=== PATIENT | male | born 1985 ===

== ENCOUNTER 2020-12-15 11:04 | Outpatient (REF) | payer MEDICAID, SELFPAY ==
[2020-12-15 12:40] LABS: MANUAL DIFF FLAG NO
[2020-12-15 12:44] LABS: Hematocrit 45.3 % (42-52); Hemoglobin 16.6 g/dl (14.0-18.0); Imm Gran Abs Auto 0.01 X10*3/uL (0.00-0.03); Imm Gran Pct Auto 0.3 % (0.0-0.4); Lymphocytes Absolute Auto 1.9 X10*3/uL (1.2-4.9); Lymphocytes Percent Auto 48.3 % (20-40); Mean Corpuscular HGB Conc 36.6 g/dl (31.0-36.0); Mean Corpuscular Volume 95.6 fL (80-98); Mean Platelet Volume 9.9 fL (9.4-12.4); Monocytes Absolute Auto 0.4 X10*3/uL (0.1-1.2); Monocytes Percent Auto 9.5 % (2-11); Neutrophils Absolute Auto 1.6 X10*3/uL (2.0-8.3); Neutrophils Percent Auto 39.9 % (45-73); Platelet Count 163 X10*3/uL (160-400); Red Blood Count 4.74 X10*6/uL (4.60-5.80); Red Cell Distribution Width 12.1 % (11.0-16.0); White Blood Count 3.9 X10*3/uL (4.8-10.8)
[2020-12-15 12:48] LABS: Glucose Urine UA NEG (NEG); Leukocyte Esterase Urine NEG (NEG); Nitrite Urine NEG (NEG); Specific Gravity - Urine 1.025 (1.005-1.025); UACC Culture Trigger NO; Urine Blood NEG (NEG); Urine Ketones 5 MG/DL (NEG); Urine Protein 1+ MG/DL (NEG-TRACE)
[2020-12-15 12:49] LABS: Appearance Urine CLOUDY; Color Urine YELLOW
[2020-12-15 12:52] LABS: Prothrombin Time 11.3 SEC (9.9-13.0)
[2020-12-15 13:07] LABS: Bacteria Urine TRACE /LPF; Calcium Oxalate Crystals Urine 2+ /LPF; Mucus Urine 2+ /LPF; RBC Urine 0-2 /HPF (0); Squamous Epithelial Cell Urine TRACE /LPF; WBC Urine 0-2 /HPF (0-4)
[2020-12-15 13:53] LABS: Alanine Aminotransferase 725 U/L (0-40); Albumin Level 3.9 g/dL (3.5-5.0); Alkaline Phosphatase 282 U/L (39-117); Anion Gap 20 (12-20); Aspartate Amino Transferase 765 U/L (5-37); Blood Urea Nitrogen 15 mg/dL (9-16); Calcium 8.5 mg/dL (8.4-10.2); Carbon Dioxide 22 mmol/L (22-29); Chloride 98 mmol/L (96-108); Estimated Glomerular Filt Rate > 60; Glucose Random 122 mg/dL (60-115); Iron 172 mcg/dL (45-160); Sodium 136 mmol/L (135-145); Total Protein 6.8 g/dL (6.5-8.0)
[2020-12-15 14:01] LABS: Amylase 31 U/L (28-100); Percent Iron Saturation 86 % (15-50); Total Iron Binding Capacity 201 mcg/dL (228-428); Unsaturated Iron Binding 29 ug/dL
[2020-12-15 14:26] LABS: Estimated Average Glucose 103 mg/dL; Hemoglobin A1c % 5.2 %
[2020-12-15 15:09] LABS: Ferritin 4362 ng/mL (20-250)
[2020-12-16 08:44] LABS: HBc Num1 0.06 S/CO (0.00-0.79); HBsAGNum1 0.25 S/CO (0.00-0.99); Hepatitis B Core Antibody Nonreactive (Nonreactive); Hepatitis B Surface Antigen Negative (Negative); ~HepC Num1 0.08 S/CO (0.00-0.79); ~Hepatitis C Antibody Nonreactive (Nonreactive)
[2020-12-16 08:52] LABS: ~Hepatitis B Surface Antibody REACTIVE (Nonreactive)
[2020-12-17 09:49] LABS: Hepatitis A Antibody IgM 0.12 Index (0-0.79); ~Hepatitis A Antibody IgM Nonreactive (Nonreactive)
== END 2020-12-15 11:05 | disposition home or self-care (01) ==
LOC: HO.MANLDS 11:04
PROVIDERS: PCP Internal Medicine; Visit Provider Internal Medicine
DX: K92.1 Melena (principal); R30.0 Dysuria
CPT/HCPCS: 36415; 80053; 81001; 82150; 82728; 83036; 83540; 85025; 85610; 86704; 86706; 86709; 86803; 87086; 87340

== ENCOUNTER 2022-11-10 05:21 | Inpatient (IN) | payer MEDICAID, SELFPAY ==
[2022-11-10] VITALS (9 sets, daily range): BP systolic 101–144; BP diastolic 58–86; PULSE 62–102; RESP 11–20; TEMP 36.1–37.3; O2SAT 93–98; BMI 28.5; BMI 29.6; BMI 28.7
--- NOTE | ~2022-11-10 | CT_ITS ---
EXAMINATION: CT ABDOMEN AND PELVIS WITH CONTRAST CLINICAL INFORMATION: Diffuse abdominal pain and tenderness. Vomiting. No bowel movement for one week. COMPARISON: None available. TECHNIQUE: Multidetector volumetric images were obtained from the superior aspect of the liver through the pubic symphysis following administration 85 mL of Omnipaque 350 intravenous contrast. Sagittal and coronal reformatted images were obtained on the technologist's workstation. Oral contrast: No This CT examination was performed using dose optimization techniques as appropriate, variously including the following: *Automated exposure control *Adjustment of mA and/or kV according to patient size (this includes techniques or standardized protocols for targeted exams where dose is matched to indication/reason for exam; i.e. extremities or head) *Use of iterative reconstruction technique DLP: 662 mGy-cm FINDINGS: LUNG BASES: Elevated right hemidiaphragm. The lung bases are otherwise clear. LIVER, GALLBLADDER, AND BILIARY TREE: The liver is enlarged. Normal contour with diffuse decreased attenuation. No biliary ductal dilatation or focal lesion. The gallbladder is unremarkable with no evidence of radiopaque gallstones, gallbladder wall thickening, or obvious pericholecystic inflammatory changes. PANCREAS: Mild inflammation in the region of the pancreatic head. The pancreatic parenchyma is homogenous. No ductal dilatation. SPLEEN: Unremarkable. ADRENAL GLANDS: Unremarkable. KIDNEYS AND URETERS: The kidneys are normal in size, shape, and attenuation. No hydronephrosis, hydroureter, or calculi seen. No perinephric stranding. BLADDER: Unremarkable. GASTROINTESTINAL TRACT: The stomach is unremarkable. Normal caliber small bowel. There is no obstruction. Fatty filtration diffusely throughout the colonic wall suggestive of chronic inflammatory process. No acute pericolonic inflammation. Normal appendix. ABDOMINAL WALL: No significant hernia is appreciated. LYMPH NODES: Normal. VASCULAR: Unremarkable. PELVIC VISCERA: The prostate and seminal vesicles are unremarkable. OSSEOUS STRUCTURES: Unremarkable. CT/CT abdomen pelvis w IV con IMPRESSION: 1. Mild inflammation in the region of the pancreatic head. Correlate for pancreatitis. 2. Hepatomegaly with hepatic steatosis. Fleischner guidelines were followed.
[2022-11-10] MEDS: 0.9 % Sodium Chloride 1,000 ML 999 ML IVCONT ×2 (06:04→07:47)
[2022-11-10 06:07] LABS: MANUAL DIFF FLAG NO
--- NOTE | 2022-11-10 06:09 | PC.NURSE ---
Pt A&Ox4, reports 8/10 sharp constant all over ABD pain x over 1 week with worsening in symptoms x 2 days with N/V. Pt states feeling bloating/gas and unable to keep PO fluids in. Last alcohol drink was this am at 0000. ABD tender to touch x 4 quadrants, + bowel sounds x 4 quadrants. Lab work obtained and sent to lab, IV fluid given as documented. CIWA score obtained/provider notified.
[2022-11-10 06:22] LABS: Ethanol 300 mg/dL
[2022-11-10 06:28] LABS: Alanine Aminotransferase 312 U/L (0-40); Albumin Level 4.7 g/dL (3.5-5.0); Alkaline Phosphatase 155 U/L (39-117); Anion Gap 32 (12-20); Aspartate Amino Transferase 493 U/L (5-37); Bilirubin Direct 1.8 mg/dL (0.0-0.5); Bilirubin Total 2.9 mg/dL (0.0-1.0); Blood Urea Nitrogen 7 mg/dL (9-16); Calcium 9.8 mg/dL (8.4-10.2); Carbon Dioxide 19 mmol/L (22-29); Chloride 90 mmol/L (96-108); Creatinine Clr Calc Pharmacy 166.6; Estimated Glomerular Filt Rate > 60; Glucose Random 141 mg/dL (60-115); Lipase 131 U/L (8-78); Magnesium 1.8 mg/dL (1.6-2.6); Potassium 3.1 mmol/L (3.3-5.1); Sodium 138 mmol/L (135-145); Total Protein 7.8 g/dL (6.5-8.0)
[2022-11-10 06:32] LABS: Basophils Percent Auto 0.5 % (0-2); Eosinophils Percent Auto 0.2 % (0-4); Hematocrit 44.8 % (42.0-52.0); Imm Gran Abs Auto 0.01 X10*3/uL (0.00-0.03); Imm Gran Pct Auto 0.2 % (0.0-0.4); Lymphocytes Absolute Auto 1.1 X10*3/uL (1.2-4.9); Lymphocytes Percent Auto 25.9 % (20-40); Mean Corpuscular HGB Conc 35.7 g/dl (31.0-36.0); Mean Corpuscular Hemoglobin 31.1 pg (27.0-33.0); Monocytes Absolute Auto 0.4 X10*3/uL (0.1-1.2); Monocytes Percent Auto 10.6 % (2-11); Neutrophils Absolute Auto 2.5 x10*3/uL (2.0-8.3); Neutrophils Percent Auto 62.6 % (45-73); Red Blood Count 5.15 X10*6/uL (4.60-5.80); White Blood Count 4.1 X10*3/uL (4.8-10.8)
--- NOTE | 2022-11-10 06:33 | ED.ABDPAIN ---
HPI - Abdominal Pain General Chief Complaint: Abdominal Pain Stated Complaint: abdominal pain Time Seen by Provider: 11/10/22 06:31 Source: patient and EMS Mode of arrival: EMS Limitations: no limitations History of Present Illness HPI narrative: 37 yo male with history of alcohol abuse and dependence, history of recent alcoholic pancreatitis at [facility], history of HTN who presents to the ER for evaluation of severe diffuse abdominal pain, nausea, vomiting and inability to keep anything down for the last 1 week. He states when he was at [facility] for pancreatitis, his pain was mostly on the left side and it was associated with significant diarrhea. This last week he has had diffuse abdominal pain and has not had any bowel movements. He feels like a bowling ball is in my stomach. He admits to relapsing from alcohol about 1 month ago after being sober 21 months. MD elicited complaint: abdominal pain Pertinent past history: other (pancreatitis) Onset (ago): week(s) (1) Pain Consistency: constant Location: diffuse Severity: severe Pain scale (0-10): 10 Quality: stabbing Radiation: none Migration to: no migration Exacerbating factors: eating Relieving factors: nothing Context: history of similar episodes and other (alcohol) Associated symptoms: nausea and vomiting Related Data Home Medications Medication Instructions Recorded Confirmed buspirone 5 mg tablet 5 mg PO BID 11/10/22 11/10/22 clonidine HCl 0.1 mg tablet 0.1 mg PO BEDTIME PRN Insomnia 11/10/22 11/10/22 sertraline 100 mg tablet 200 mg PO DAILY 11/10/22 11/10/22 Allergies Allergy/AdvReac Type Severity Reaction Status Date / Time fluoxetine [From PROZAC] Allergy Unknown UNKNOWN Verified 11/10/22 06:03 Penicillins [PENICILLINS] Allergy Unknown UNKNOWN Verified 11/10/22 06:03 Review of Systems Review of Systems Yes all other systems are reviewed and are negative [facility] Social History Social History Alcohol intake: current Alcohol intake frequency: 3 or more drinks per day Alcohol type: hard liquor Smoked in Last 30 Days: Yes Use of substances other than those prescribed or required for medical reasons: No Advance Directives: Yes Advance Directives Information Provided: Yes Advance Directives on File: No Physical Exam ED Vital Signs: Vital Signs - 24 hr 11/10/22 05:27 11/10/22 07:47 11/10/22 08:12 Temperature 98.4 F 98.1 F Pulse Rate 90 91 82 Respiratory Rate 19 20 11 L Blood Pressure 135/86 124/76 120/77 Pulse Oximetry 96 96 95 Oxygen Delivery Method Room Air Room Air Room Air BMI result Body Mass Index 29.6 Appearance: Alert. Oriented X3. Restless, slight tremor Head: normocephalic, atraumatic. Eyes: Pupils equal, round and reactive to light. ENT: Pharynx normal. No tonsillar swelling or exudate. Neck: Normal inspection. Neck supple. CVS: Normal heart rate and rhythm. Pulses normal. Respiratory: No respiratory distress. Breath sounds normal. Abdomen: Firm, diffusely tender with guarding throughout, normal ative +BS x4 Skin: Skin warm and dry. Normal skin color. Normal skin turgor. No rashes. Extremities: No lower extremity edema. No joint swelling. Neuro/psych: Oriented X 3. No motor deficit. No sensory deficit. CN II-XII intact. Normal speech and cognition. Medical Decision Making Medical Decision Making [facility] Narrative: 37 yo male with history of alcohol abuse and dependence, history of recent alcoholic pancreatitis at [facility], history of HTN who presents to the ER for evaluation of severe diffuse abdominal pain, nausea, vomiting and inability to keep anything down for the last 1 week. Labs c/w acute alcoholic hepatitis vs alcoholic pancreatitis vs CBD stone?. He has high anion gap metabolic acidosis, AG 32. Most likely alcoholic ketoacidosis/starvation ketosis. Lactic acid likely from starvation and NOT sepsis. no evidence of acute infection at this time. CT scan w/ hepatomegaly and evidence of pancreatitis. awaiting [facility] records Given 2L IVF, IV dilaudid for severe pain. CIWA 7 with ETOH 300, high risk for severe withdrawal. Will plan for admission for further management. Differential Diagnosis Differential Diagnoses: The differential diagnosis associated with the presentation includes acute abdomen given severe tenderness, acute alcoholic pancreatitis, choledocholithasis, SBO, alcoholic hepatitis, alcoholic ketoacidosis, lactic acidosis, alcohol intoxication Admission/Observation Consideration of admission/observation: Escalation of care including admission/observation considered 37 yo male w/ recurrent pancreatitis, unable to tolerate PO with severe abd pain Consult Healthcare Provider Management of the patient was discussed with: [employer] TT Dr. Dominguez for admission Lab Data [facility] Lab Attestation statement: I reviewed the patient's lab results. thrombocytopenia, hypokalemia, elevated LFTs, anion gap metabolic acidosis 11/10/22 06:03 11/10/22 06:03 Labs: Lab Results 11/10/22 11/10/22 11/10/22 Range/Units 06:03 06:03 06:03 WBC 4.1 L (4.8-10.8) X10*3/uL RBC 5.15 (4.60-5.80) X10*6/uL Hgb 16.0 (14.0-18.0) g/dl Hct 44.8 (42.0-52.0) % MCV 87.0 (80.0-98.0) fL MCH 31.1 (27.0-33.0) pg MCHC 35.7 (31.0-36.0) g/dl RDW 16.0 (11.0-16.0) % Plt Count 69 L (160-400) X10*3/uL MPV 9.2 L (9.4-12.4) fL Immature Gran % (Auto) 0.2 (0.0-0.4) % Neut % (Auto) 62.6 (45-73) % Lymph % (Auto) 25.9 (20-40) % [place] % (Auto) 10.6 (2-11) % Eos % (Auto) 0.2 (0-4) % Baso % (Auto) 0.5 (0-2) % Lymph # (Auto) 1.1 L (1.2-4.9) X10*3/uL [place] # (Auto) 0.4 (0.1-1.2) X10*3/uL Eos # (Auto) 0.0 (0.0-0.4) X10*3/uL Baso # (Auto) 0.0 (0.0-0.2) X10*3/uL Abs Immat Gran (auto) 0.01 (0.00-0.03) X10*3/uL Absolute Neuts (auto) 2.5 (2.0-8.3) x10*3/uL Absolute Nucleated RBC 0.000 (0.0-0.012) X10*3/uL Nucleated RBC % (auto) 0.0 (0.0-0.2) /100WBC PT (10.0-13.1) SEC INR (0.9-1.1) APTT (26.0-36.4) SEC Sodium 138 (135-145) mmol/L Potassium 3.1 L D (3.3-5.1) mmol/L Chloride 90 L (96-108) mmol/L Carbon Dioxide 19 L (22-29) mmol/L Anion Gap 32 H (12-20) BUN 7 L (9-16) mg/dL Creatinine 0.61 (0.5-1.4) mg/dL Estim Creat Clear Calc 166.6 Estimated GFR > 60 Random Glucose 141 H (60-115) mg/dL Lactic Acid (0.5-2.0) mmol/L Calcium 9.8 D (8.4-10.2) mg/dL Magnesium 1.8 (1.6-2.6) mg/dL Total Bilirubin 2.9 H (0.0-1.0) mg/dL Direct Bilirubin 1.8 H (0.0-0.5) mg/dL AST 493 H (5-37) U/L ALT 312 H (0-40) U/L Alkaline Phosphatase 155 H (39-117) U/L Lactate Dehydrogenase 535 H (118-273) U/L Total Protein 7.8 (6.5-8.0) g/dL Albumin 4.7 (3.5-5.0) g/dL Lipase 131 H (8-78) U/L Urine Color Urine Appearance Urine pH (5.0-9.0) Ur Specific [place] (1.005-1.025) Urine Protein (Neg-Trace) mg/dL Urine Glucose (UA) (Negative) mg/dL Urine Ketones (Negative) mg/dL Urine Blood (Negative) Urine Nitrite (Negative) Ur Leukocyte Esterase (Negative) Urine RBC (0-2) /HPF Urine WBC (0-5) /HPF Ur Squamous Epith Cells (0-2) /HPF Urine Bacteria (None Seen) Hyaline Casts (0-2) /LPF Ethyl Alcohol 300 H* mg/dL 11/10/22 11/10/22 11/10/22 Range/Units 07:44 07:44 08:12 WBC (4.8-10.8) X10*3/uL RBC (4.60-5.80) X10*6/uL Hgb (14.0-18.0) g/dl Hct (42.0-52.0) % MCV (80.0-98.0) fL MCH (27.0-33.0) pg MCHC (31.0-36.0) g/dl RDW (11.0-16.0) % Plt Count (160-400) X10*3/uL MPV (9.4-12.4) fL Immature Gran % (Auto) (0.0-0.4) % Neut % (Auto) (45-73) % Lymph % (Auto) (20-40) % [place] % (Auto) (2-11) % Eos % (Auto) (0-4) % Baso % (Auto) (0-2) % Lymph # (Auto) (1.2-4.9) X10*3/uL [place] # (Auto) (0.1-1.2) X10*3/uL Eos # (Auto) (0.0-0.4) X10*3/uL Baso # (Auto) (0.0-0.2) X10*3/uL Abs Immat Gran (auto) (0.00-0.03) X10*3/uL Absolute Neuts (auto) (2.0-8.3) x10*3/uL Absolute Nucleated RBC (0.0-0.012) X10*3/uL Nucleated RBC % (auto) (0.0-0.2) /100WBC PT 10.7 (10.0-13.1) SEC INR 0.9 (0.9-1.1) APTT 28.6 (26.0-36.4) SEC Sodium (135-145) mmol/L Potassium (3.3-5.1) mmol/L Chloride (96-108) mmol/L Carbon Dioxide (22-29) mmol/L Anion Gap (12-20) BUN (9-16) mg/dL Creatinine (0.5-1.4) mg/dL Estim Creat Clear Calc Estimated GFR Random Glucose (60-115) mg/dL Lactic Acid 2.4 H* (0.5-2.0) mmol/L Calcium (8.4-10.2) mg/dL Magnesium (1.6-2.6) mg/dL Total Bilirubin (0.0-1.0) mg/dL Direct Bilirubin (0.0-0.5) mg/dL AST (5-37) U/L ALT (0-40) U/L Alkaline Phosphatase (39-117) U/L Lactate Dehydrogenase (118-273) U/L Total Protein (6.5-8.0) g/dL Albumin (3.5-5.0) g/dL Lipase (8-78) U/L Urine Color Dark Yellow Urine Appearance Clear Urine pH 6.0 (5.0-9.0) Ur Specific [place] 1.020 (1.005-1.025) Urine Protein 300 (3+) H (Neg-Trace) mg/dL Urine Glucose (UA) Negative (Negative) mg/dL Urine Ketones 80 (Negative) mg/dL Urine Blood Small (1+) H (Negative) Urine Nitrite Negative (Negative) Ur Leukocyte Esterase Negative (Negative) Urine RBC 6-10 H (0-2) /HPF Urine WBC 0-5 (0-5) /HPF Ur Squamous Epith Cells 0-2 (0-2) /HPF Urine Bacteria None Seen (None Seen) Hyaline Casts 0-2 (0-2) /LPF Ethyl Alcohol mg/dL Independent Interpretation I performed an independent interpretation of an: CT Scan Interpretation: hepatomegaly, enlarged gallbladder without stones, nonobstructive bowel pattern, pancreas slightly full, agree w/ radiology read Radiology Impression Discussion of test interpretation with radiology: I have reviewed the radiologist's reading. Radiologist Impression: ?CT/CT abdomen pelvis w IV con IMPRESSION: 1.? Mild inflammation in the region of the pancreatic head. Correlate for pancreatitis. 2.? Hepatomegaly with hepatic steatosis Independent Historian Clinical information obtained from an independent historian. History obtained from or confirmed by: EMS External Record Review External record reviewed: Outpatient record, Prior outpatient labs and Prior outpatient radiology Prescription Management I considered prescription management with: Pain Medication and Antibiotic considered abx for acalcylous cholecystitis w/ enlarged GB on CT however read as normal Chronic Conditions Patient?s care impacted by: Other (alcohol dependence) Social Determinants Patient?s care significantly limited by Social Determinants of Health including: Alcoholism and drug addiction in family and Other Social Determinant of Health Medications Administered Discontinued Medications Generic Name Dose Route Start Last Admin Trade Name Freq PRN Reason Stop Dose Admin Hydromorphone HCl 0.5 mg 11/10/22 06:41 11/10/22 07:55 Hydromorphone Hcl 0.5 Mg/0.5 Ml Syringe IVPUSH 11/10/22 06:42 0.5 mg ONCE ONE Administration Protocol Sodium Chloride 1,000 mls @ 999 mls/hr 11/10/22 05:57 11/10/22 08:00 Ns IVCONT 11/10/22 06:57 Infused .Q1H1M ONE Infusion Sodium Chloride 1,000 mls @ 999 mls/hr 11/10/22 06:45 11/10/22 09:02 Ns IVCONT 11/10/22 07:45 Infused .Q1H1M [place] Infusion Potassium Chloride 10 meq in 100 mls @ 100 mls/hr 11/10/22 06:45 11/10/22 09:01 Potassium Chloride/H20 IV 11/10/22 08:44 100 mls/hr Q1H [place] Administration Iohexol 85 ml 11/10/22 07:35 11/10/22 07:36 Iohexol 350 Mg/Ml 100 Ml Infus..Btl IV 11/10/22 07:36 85 ml ONCE ONE Administration Ondansetron HCl 4 mg 11/10/22 06:41 11/10/22 07:55 Ondansetron Hcl 4 Mg/2 Ml Vial IVPUSH 11/10/22 06:42 4 mg ONCE ONE Administration Critical Care Time Critical Care Time Critical Care Time: Yes Total Critical Care Time: 36 Attestation: I have personally provided critical care time exclusive of time spent on separately billable procedures. Time includes review of lab data, radiology results, discussion with consultants, and monitoring for potential decompensation. Intervention performed as documented. Discharge Plan Discharge Clinical Impression: Acute alcoholic pancreatitis, Acute alcoholic hepatitis, Acute hypokalemia, Alcoholic ketoacidosis Patient Disposition: Admitted As Inpatient
[2022-11-10 06:41] LABS: Platelet Count 69 X10*3/uL (160-400)
[2022-11-10 06:44] LABS: Mean Platelet Volume 9.2 fL (9.4-12.4)
[2022-11-10] MEDS: iohexoL 350 MG/ML 100 ML INFUS..BTL 85 ML IV (07:36)
[2022-11-10] MEDS: ondansetron HCL 4 MG/2 ML VIAL IVPUSH ×2 (07:55→14:19)
[2022-11-10] MEDS: Potassium Chloride/H20 10 MEQ/100 ML PIGGYBACK 100 MEQ IV ×4 (07:55→13:26)
[2022-11-10] MEDS: HYDROmorphone HCl 0.5 MG/0.5 ML SYRINGE IVPUSH (07:55)
[2022-11-10 08:01] LABS: INTERNATIONAL NORM RATIO 0.9 (0.9-1.1); Prothrombin Time 10.7 SEC (10.0-13.1)
[2022-11-10 08:03] LABS: Partial Thromboplastin Time 28.6 SEC (26.0-36.4)
[2022-11-10 08:22] LABS: Appearance Urine Clear; Color Urine Dark Yellow; Glucose Urine UA Negative (Negative); Leukocyte Esterase Urine Negative (Negative); Nitrite Urine Negative (Negative); UMIC TRIGGER UACC YES; Urine Blood Small (1+) (Negative); Urine Ketones 80 mg/dL (Negative); Urine Protein 300 (3+) mg/dL (Neg-Trace)
[2022-11-10 08:27] LABS: Bacteria Urine None Seen (None Seen); Hyaline Casts Urine 0-2 /LPF (0-2); Squamous Epithelial Cell Urine 0-2 /HPF (0-2); WBC Urine 0-5 /HPF (0-5)
[2022-11-10 08:29] LABS: Lactic Acid 2.4 mmol/L (0.5-2.0)
[2022-11-10 09:10] LABS: Lactate Dehydrogenase 535 U/L (118-273)
--- NOTE | 2022-11-10 09:40 | PHA.MEDREC ---
Pharmacy Consult ? Medication Reconciliation Pharmacy has completed the medication reconciliation.
[2022-11-10 09:49] LABS: Reflex Lactate? Lactic Acid Added
--- NOTE | 2022-11-10 10:47 | PM.IMHP ---
History of Present Illness Date of Service: 11/10/22 Attending physician on admission: Casey Madrid Chief Complaint: Acute pancreatitis, alcohol intoxication. 37 yo M hx of alcohol abuse and dependence, recent alcoholic pancreatitis at [facility], HTN?-patient came to the hospital because he said that he was sober for more than year and then his in alex recently so since then he had lost the control or drinking-patient says that he is having on and off abdominal pain from for 5 days and also: Able to eat and have nausea and diarrhea. He says the abdominal pain is sharp mostly on the left upper abdominal area, radiating to the back, intensity hoang 8/10, no precipitating factors except alcohol. Denies any recent travel or antibiotic use or anybody sick at home. His alcohol levels are high seems slightly drowsy, no tremors or anxiety. Denies any new complaint of chest pain or shortness of breath or fever or chills. Denies any cough Denies any weakness or numbness. Lab imaging reviewed: WBC count improving since last reading: now 4.1 Thrombocytopenia: Platelet level 69. alcohol levels -300 In addition patient has hypokalemia, bicarb of 19, anion gap metabolic acidosis with gap of 32 Lactic acid 2.4,? Blood cultures sent unclear reason. Abdominal CT:1.? Mild inflammation in the region of the pancreatic head. Correlate for pancreatitis. 2.? Hepatomegaly with hepatic steatosis. Patient received Dilaudid, morphine, IV fluid, Zofran in the ED and requested admission for acute pancreatitis. ? Review of Systems Review of Systems: As above. [facility] Social History Alcohol intake: current Alcohol intake frequency: 3 or more drinks per day Alcohol type: hard liquor Patient Tobacco Use Status: Current everyday Tobacco user Smoked in Last 30 Days: Yes Use of substances other than those prescribed or required for medical reasons: No Advance Directives: Yes Advance Directives Information Provided: Yes Advance Directives on File: No Nutrition Risks: Acute nausea or vomiting x1 week Meds Allergies Allergy/AdvReac Type Severity Reaction Status Date / Time fluoxetine [From PROZAC] Allergy Unknown UNKNOWN Verified 11/10/22 06:03 Penicillins [PENICILLINS] Allergy Unknown UNKNOWN Verified 11/10/22 06:03 Active Medications: Current Medications Buspirone HCl (Buspirone Hcl 5 Mg Tablet) 5 mg PO BID [facility] Clonidine HCl (Clonidine Hcl 0.1 Mg Tablet) 0.1 mg PO BEDTIME PRN; Protocol PRN Reason: Insomnia Folic Acid (Folic Acid 1 Mg Tablet) 1 mg PO DAILY [facility] Thiamine HCl 100 mg/ Sodium (Chloride) 101 mls @ 202 mls/hr IV DAILY [facility] Lactated Ringer's (Lr) 1,000 mls @ 150 mls/hr IVCONT .Q6H40M [facility] Potassium Chloride (Potassium Chloride/H20) 10 meq in 100 mls @ 100 mls/hr IV Q1H [place] Stop: 11/10/22 14:44 Magnesium Sulfate/Dextrose (Magnesium Sulfate/D5w) 1 gm in 100 mls @ 100 mls/hr IV ONCE ONE Stop: 11/10/22 11:44 Morphine Sulfate (Morphine Sulfate 4 Mg/Ml Cartridge) 3 mg IVPUSH Q3H PRN; Protocol PRN Reason: Pain, Mild (Pain Scale 1-3) Ondansetron HCl (Ondansetron Hcl 4 Mg/2 Ml Vial) 4 mg IVPUSH Q4H PRN PRN Reason: Nauseated Pantoprazole Sodium (Pantoprazole Sodium 40 Mg/10 Ml Vial) 40 mg IVPUSH BID [facility] Pharmacy Consult (Consult Rx Perform Med Rec) 1 each MISCELLANE ONCE PRN PRN Reason: Consult order Pharmacy Consult (Consult Rx Etoh Phenob Im/Po) 1 each MISCELLANE ONCE PRN; Protocol PRN Reason: Consult order Sertraline HCl (Sertraline Hcl 100 Mg Tablet) 200 mg PO DAILY [facility] Sodium Chloride (0.9 % Sodium Chloride Flush 3 Ml Syringe) 3 ml IVFLUSH QSHIFT [facility] Home Medications Medication Instructions Recorded Confirmed Last Taken Type buspirone 5 mg tablet 5 mg PO BID 11/10/22 11/10/22 1 Week Ago History ~11/03/22 clonidine HCl 0.1 mg tablet 0.1 mg PO BEDTIME PRN Insomnia 11/10/22 11/10/22 11/09/22 History sertraline 100 mg tablet 200 mg PO DAILY 11/10/22 11/10/22 1 Week Ago History ~11/03/22 Physical Exam Vital Signs and Narrative: Vital Signs: Last Vital Signs Temp 98.1 F 11/10/22 08:12 Pulse 82 11/10/22 08:12 Resp 11 L 06/30/23 08:12 BP 120/77 11/10/22 08:12 Pulse Ox 95 11/10/22 08:12 O2 Del Method Room Air 11/10/22 08:12 BMI result Body Mass Index 29.6 Appearance: Alert.? Oriented X3.? has abd pain.? Eyes: Pupils equal, round and reactive to light.? Sclera nonicteric.? ENT: Pharynx normal.? Moist mucous membranes. cvs: rrr, [id number]. res: clear to auscultation ,no rhonchii or wheezing abd: no rebound or guarding ,nt, bs present. ext pulses present , no cyanosis . neuro: axo3 , nonfocal. Results Labs 11/10/22 06:03 11/10/22 06:03 Labs: Laboratory Results - last 24 hr 11/10/22 11/10/22 11/10/22 06:03 06:03 06:03 MCV 87.0 MCH 31.1 MCHC 35.7 RDW 16.0 Plt Count 69 L MPV 9.2 L Immature Gran % (Auto) 0.2 Neut % (Auto) 62.6 Lymph % (Auto) 25.9 Angelina % (Auto) 10.6 Eos % (Auto) 0.2 Baso % (Auto) 0.5 Lymph # (Auto) 1.1 L Angelina # (Auto) 0.4 Eos # (Auto) 0.0 Baso # (Auto) 0.0 Abs Immat Gran (auto) 0.01 Absolute Neuts (auto) 2.5 Absolute Nucleated RBC 0.000 Nucleated RBC % (auto) 0.0 PT INR APTT Anion Gap 32 H Estim Creat Clear Calc 166.6 Estimated GFR > 60 Random Glucose 141 H Lactic Acid Calcium 9.8 D Magnesium 1.8 Total Bilirubin 2.9 H Direct Bilirubin 1.8 H AST 493 H ALT 312 H Alkaline Phosphatase 155 H Lactate Dehydrogenase 535 H Total Protein 7.8 Albumin 4.7 Lipase 131 H Urine Color Urine Appearance Urine pH Ur Specific [place] Urine Protein Urine Glucose (UA) Urine Ketones Urine Blood Urine Nitrite Ur Leukocyte Esterase Urine RBC Urine WBC Ur Squamous Epith Cells Urine Bacteria Hyaline Casts Ethyl Alcohol 300 H* 11/10/22 11/10/22 11/10/22 07:44 07:44 08:12 MCV MCH MCHC RDW Plt Count MPV Immature Gran % (Auto) Neut % (Auto) Lymph % (Auto) Angelina % (Auto) Eos % (Auto) Baso % (Auto) Lymph # (Auto) [place]ina # (Auto) Eos # (Auto) Baso # (Auto) Abs Immat Gran (auto) Absolute Neuts (auto) Absolute Nucleated RBC Nucleated RBC % (auto) PT 10.7 INR 0.9 APTT 28.6 Anion Gap Estim Creat Clear Calc Estimated GFR Random Glucose Lactic Acid 2.4 H* Calcium Magnesium Total Bilirubin Direct Bilirubin AST ALT Alkaline Phosphatase Lactate Dehydrogenase Total Protein Albumin Lipase Urine Color Dark Yellow Urine Appearance Clear Urine pH 6.0 Ur Specific [place] 1.020 Urine Protein 300 (3+) H Urine Glucose (UA) Negative Urine Ketones 80 Urine Blood Small (1+) H Urine Nitrite Negative Ur Leukocyte Esterase Negative Urine RBC 6-10 H Urine WBC 0-5 Ur Squamous Epith Cells 0-2 Urine Bacteria None Seen Hyaline Casts 0-2 Ethyl Alcohol Imaging Radiologist's Impressions: Impressions Abdomen/Pelvis CT 11/10/22 07:33 IMPRESSION: 1. Mild inflammation in the region of the pancreatic head. Correlate for pancreatitis. 2. Hepatomegaly with hepatic steatosis. Fleischner guidelines were followed. Assessment and Plan (1) Acute alcoholic pancreatitis: Status: Acute (2) Acute alcoholic hepatitis: Status: Acute (3) Acute hypokalemia: Status: Acute (4) Alcoholic ketoacidosis: Status: Acute Plan 37 yo M hx of alcohol abuse and dependence, recent alcoholic pancreatitis at [facility], HTN-came to the hospital because of alcohol intoxication, pancreatitis acute. 1. Alcoholic pancreatitis: Mildly elevated lipase, also LFTs are elevated. Started on IV fluids, antiemetics, IV morphine, antiemetic, ppi, bowel rest. 2. Alcohol intoxication, impending alcohol withdrawal CIWA scale Thiamine folic acid, if go to alcohol withdrawal may need treatment for that. Added addiction consult. 3. Elevated lFt's likely related to alcohol use lft's seems actually improving than 2 years back. moniter lft's,added hepatitis profile. abd us. 4. acute lactic acidosis: Possible starvation, alcoholic ketoacidosis VBG IV fluids Monitor lactic acid ? Blood cultures sent but patient is not septic does not meet sepsis criteria, and patient denies any infectious symptoms. 5. Active smoker: Strongly advised abstain abstain from smoking Added nicotine patch. 6. Hypokalemia: Added IV potassium Monitor electrolytes closely. DVT prophylaxis: Will avoid chemoprophylaxis for now because platelets are only 69. SCD. Above management discussed with the patient in detail and he understand and in agreement with the above plan, time spent 70 minute, patient full code. Time Spent With Patient Time: Total time managing care of this patient today ____ minutes. Quality Stroke Does the patient have a stroke diagnosis?: No VTE Prior VTE?: No VTE Risk Level:: Medical - moderate - high VTE Device Contraindication: N/A - Device Ordered VTE Drug Contraindication: N/A - Med Ordered
[2022-11-10] MEDS: Lactated Ringers 1,000 ML 150 ML IVCONT ×2 (11:00→18:10)
[2022-11-10] MEDS: Magnesium Sulfate/D5W 1 GM/100 ML PIGGYBACK IV (11:01)
[2022-11-10 11:24] LABS: ~Lactic Acid-LAB USE ONLY 1.8 mmol/L (0.5-2.0)
[2022-11-10 11:41] LABS: VBG Base Excess -3.5 mmol/L; VBG HCO3 19 mmol/L (22-26); VBG pCO2 29 mmHg; VBG pH 7.42 (7.32-7.43); VBG pO2 214 mmHg
[2022-11-10 11:41] LABS: Venous Blood Gas Refer to POC result
[2022-11-10] MEDS: LORazepam 1 MG TABLET 2 MG PO (12:12)
--- NOTE | 2022-11-10 12:56 | P.CNGI_ITS ---
History of Present Illness Data of Consult Service Date: 11/10/22 Requesting physician: Casey Madrid Primary Care Provider: Beny Kothari MD HPI Reason for consult: pancreatitis 37 yo M? hx of?HTN, alcohol abuse and dependence,?and alcoholic pancreatitis who I am seeing for assessment for pancreatitis Patient has been drinkign 10-20 nips of vodka daily for last 2 weeks, but last few days he has noted several episodes of non bloody emesis and nausea with poor appetite and 7-8/10 burning epigastric pain going into the back. He has also noted non bloody diarrhea and malaise. He has similar attack before which turned out to be pancreatitis but the severity of this attack is worse. Denies any cough Denies any weakness or numbness. Denies any chest pain or shortness of breath? or fever or chills. Imaging: hepatomegaly and steatosis with pancreatic head inflammation LABS: Thrombocytopenia:? Platelet level 69. alcohol levels -300 hypokalemia, bicarb of 19, anion gap metabolic acidosis with gap of 32 LFT--mild elevation of bili, high AST, ALT ? Review of Systems Review of Systems: Constitutional : No Weight loss, No Fever, No Chills ENT/Mouth : No sore throat, No Rhinorrhea Eyes: No Swelling, No Redness Cardiovascular : No Chest Pain, No SOB, No Edema Respiratory : No Cough, No Sputum, No Wheezing Gastrointestinal : see HPI Genitourinary : NO Dysuria, No Urinary Frequency, No Hematuria, No Urgency Musculoskeletal : No joint pain, No Myalgias, No Joint Swelling Skin : No Skin Lesions, No rash Neuro : No Weakness, No Numbness, No Dizziness, No Headache Psych : No Anxiety/Panic, No Depression Heme/Lymph: No Bruising, No Lymphadenopathy Endocrine : No Polyuria, No Polydipsia All other systems reviewed and are negative. [facility] Family History Pertinent family history: No FH of cirrhosis or liver disease Social History Social History Alcohol intake: current Alcohol intake frequency: 3 or more drinks per day Alcohol type: hard liquor Patient Tobacco Use Status: Current everyday Tobacco user Smoked in Last 30 Days: Yes Use of substances other than those prescribed or required for medical reasons: No Advance Directives: Yes Advance Directives Information Provided: Yes Advance Directives on File: No Nutrition Risks: Acute nausea or vomiting x1 week Meds Allergies Allergy/AdvReac Type Severity Reaction Status Date / Time fluoxetine [From PROZAC] Allergy Unknown UNKNOWN Verified 11/10/22 06:03 Penicillins [PENICILLINS] Allergy Unknown UNKNOWN Verified 11/10/22 06:03 Active Medications: Current Medications Buspirone HCl (Buspirone Hcl 5 Mg Tablet) 5 mg PO BID [facility] Clonidine HCl (Clonidine Hcl 0.1 Mg Tablet) 0.1 mg PO BEDTIME PRN; Protocol PRN Reason: Insomnia Folic Acid (Folic Acid 1 Mg Tablet) 1 mg PO DAILY [facility] Thiamine HCl 100 mg/ Sodium (Chloride) 101 mls @ 202 mls/hr IV DAILY [facility] Lactated Ringer's (Lr) 1,000 mls @ 150 mls/hr IVCONT .Q6H40M [facility] Last Admin: 11/10/22 11:00 Dose: 150 mls/hr Potassium Chloride (Potassium Chloride/H20) 10 meq in 100 mls @ 100 mls/hr IV Q1H [facility] Stop: 11/10/22 14:44 Last Admin: 11/10/22 12:11 Dose: 100 mls/hr Lorazepam (Lorazepam 1 Mg Tablet) 1 mg PO Q4H PRN PRN Reason: Breakthrough alcohol withdrawa Stop: 11/14/22 11:27 Lorazepam (Lorazepam 1 Mg Tablet) 1 mg PO Q4H [facility]; Taper Stop: 11/14/22 13:29 Morphine Sulfate (Morphine Sulfate 4 Mg/Ml Cartridge) 3 mg IVPUSH Q3H PRN; Protocol PRN Reason: Pain, Mild (Pain Scale 1-3) Ondansetron HCl (Ondansetron Hcl 4 Mg/2 Ml Vial) 4 mg IVPUSH Q4H PRN PRN Reason: Nauseated Pantoprazole Sodium (Pantoprazole Sodium 40 Mg/10 Ml Vial) 40 mg IVPUSH BID [facility] Pharmacy Consult (Consult Rx Perform Med Rec) 1 each MISCELLANE ONCE PRN PRN Reason: Consult order Pharmacy Consult (Consult Rx Etoh Phenob Im/Po) 1 each MISCELLANE ONCE PRN; Protocol PRN Reason: Consult order Sertraline HCl (Sertraline Hcl 100 Mg Tablet) 200 mg PO DAILY [facility] Sodium Chloride (0.9 % Sodium Chloride Flush 3 Ml Syringe) 3 ml IVFLUSH QSHIFT [facility] Home Medications Medication Instructions Recorded Confirmed Last Taken Type buspirone 5 mg tablet 5 mg PO BID 11/10/22 11/10/22 1 Week Ago History ~11/03/22 clonidine HCl 0.1 mg tablet 0.1 mg PO BEDTIME PRN Insomnia 11/10/22 11/10/22 11/09/22 History sertraline 100 mg tablet 200 mg PO DAILY 11/10/22 11/10/22 1 Week Ago History ~11/03/22 Physical Exam Vital Signs: Vital Signs: Last Vital Signs Temp 98.1 F 11/10/22 08:12 Pulse 79 11/10/22 10:58 Resp 20 11/10/22 10:58 BP 111/67 11/10/22 10:58 Pulse Ox 95 11/10/22 08:12 O2 Del Method Room Air 11/10/22 08:12 BMI result Body Mass Index 29.6 EXAM: GENERAL: The patient smells of alcohol, mildly jaundice VITAL SIGNS:see workflow HEENT: +icteric sclerae, PERRLA, EOMI. Oropharynx clear. Moist mucous membranes. Conjunctivae appear well perfused. No thyroid mass. CHEST: Chest wall is nontender. HEART: Regular rate and rhythm without murmurs. LUNGS: Clear to auscultation bilaterally. ABDOMEN: Soft, positive bowel sounds, tender epigastrium and RUQ, no organomegaly.no flank tenderness SKIN: No rash, no excessive bruising, petechiae, or purpura. NEUROLOGIC: Cranial nerves II-XII intact without motor/sensory deficit. Psych: normal affect Results Labs 11/10/22 06:03 11/10/22 06:03 Labs: Short CBC 11/10/22 Range/Units 06:03 WBC 4.1 L (4.8-10.8) X10*3/uL Hgb 16.0 (14.0-18.0) g/dl Hct 44.8 (42.0-52.0) % Plt Count 69 L (160-400) X10*3/uL BMP 11/10/22 06:03 Sodium 138 Potassium 3.1 L D Chloride 90 L Carbon Dioxide 19 L BUN 7 L Creatinine 0.61 Calcium 9.8 D Liver Function 11/10/22 Range/Units 06:03 Total Bilirubin 2.9 H (0.0-1.0) mg/dL Direct Bilirubin 1.8 H (0.0-0.5) mg/dL AST 493 H (5-37) U/L ALT 312 H (0-40) U/L Alkaline Phosphatase 155 H (39-117) U/L Albumin 4.7 (3.5-5.0) g/dL Urine 11/10/22 Range/Units 08:12 Urine Color Dark Yellow Urine Appearance Clear Urine pH 6.0 (5.0-9.0) Ur Specific [place] 1.020 (1.005-1.025) Urine Protein 300 (3+) H (Neg-Trace) mg/dL Urine Glucose (UA) Negative (Negative) mg/dL Imaging CT scan - abdomen: My impression: hepatomegaly, pancreas with mild head inflammation Assessment and Plan (1) Acute alcoholic hepatitis: Status: Acute (2) Acute alcoholic pancreatitis: Status: Acute Plan 1/ Alcohol abuse with elevated LFT and mild lipase elevation, most consistent with alcohol related hepatitis and alcoholic pancreatitis. MELD and Maddrey score are minimally elevated PLAN: 1/ Alcohol withdrawal protocol 2/ B vitamins 3/ scheduled anti nausea medication 4/ encourage alcohol abstinence 5/omeprazole for any alcohol gastritis and to prevent ulceration 6/ IV fluid resus, can add trental 400 mg TID, as may help 7/ hold steroids as MDF is low 8/ NRT, needs to stop smoking will reduce risk of chronic pancreatitis Time Spent With Patient Time: Total time managing care of this patient today ____ minutes. Procedures Date of Service Date of Service: 11/10/22
[2022-11-10] MEDS: LORazepam 1 MG TABLET PO (13:27)
--- NOTE | 2022-11-10 13:32 | PC.NURSE ---
Dr Anderson made aware that pt received 2 bags of 10mEq in ER - written order via tiger connect to only give 2/4 of admitting ordered potassium 10mEq
[2022-11-10] MEDS: LORazepam 2 MG/ML VIAL IVPUSH (14:52)
[2022-11-10] MEDS: 0.9 % Sodium Chloride Flush 3 ML SYRINGE IVFLUSH (14:56)
[2022-11-10] MEDS: cloNIDine HCL 0.1 MG TABLET PO ×2 (15:55→21:13)
[2022-11-10] MEDS: LORazepam 2 MG/ML VIAL 1 MG IVPUSH ×2 (17:13→21:10)
[2022-11-10 17:33] LABS: Amphetamine Screen Urine Not Detected (Not Detect); Barbiturates, Urine POSITIVE (Not Detect); Benzodiazepines Screen Urine Not Detected (Not Detect); Cannabinoid Screen Urine Not Detected (Not Detect); Cocaine Screen Urine Not Detected (Not Detect); Fentanyl, urine Not Detected (Not Detect); Opiate Screen Urine Not Detected (Not Detect); Phencyclidine Screen Urine Not Detected (Not Detect)
[2022-11-10] MEDS: Pantoprazole Sodium 40 MG/10 ML VIAL IVPUSH (21:10)
[2022-11-10] MEDS: busPIRone HCl 5 MG TABLET PO (21:13)
[2022-11-11] MEDS: LORazepam 2 MG/ML VIAL 1 MG IVPUSH ×6 (01:05→22:14)
[2022-11-11] MEDS: Lactated Ringers 1,000 ML 150 ML IVCONT ×4 (01:06→21:38)
[2022-11-11] MEDS: 0.9 % Sodium Chloride Flush 3 ML SYRINGE IVFLUSH ×4 (01:06→21:44)
[2022-11-11 03:25] VITALS: BP 128/79; PULSE 64; RESP 18; TEMP 36.6; O2SAT 98
[2022-11-11] MEDS: Morphine Sulfate 4 MG/ML CARTRIDGE 3 MG IVPUSH ×4 (03:35→22:18)
[2022-11-11 07:18] VITALS: BP 124/80; PULSE 63; RESP 20; TEMP 36.6; O2SAT 98
[2022-11-11] MEDS: busPIRone HCl 5 MG TABLET PO ×2 (08:25→21:37)
[2022-11-11] MEDS: cloNIDine HCL 0.1 MG TABLET PO ×2 (08:25→21:37)
[2022-11-11] MEDS: Sertraline HCL 100 MG TABLET 200 MG PO (08:25)
[2022-11-11] MEDS: Thiamine HCL 100 MG in 0.9 % Sodium Chloride 100 ML 202 MG IV (08:26)
[2022-11-11] MEDS: Pantoprazole Sodium 40 MG/10 ML VIAL IVPUSH ×2 (08:26→21:37)
[2022-11-11] MEDS: Folic Acid 1 MG TABLET PO (09:02)
--- NOTE | 2022-11-11 09:12 | MHC.CM.PN ---
Interview conducted w/Pt. Lives at home w/GF. Drives, no services, no equipment, previously independent. Unsure if still employed; he indicated given his behavior over the past few months. He spoke of very much wanting to get better and requesting [facility] to help him with a recovery from ETOH addiction plan. MD orders indicate addiction medicine consult has already been made. This RNCM also gave Pt a community resource guide book for his reference. D/C plan is to return home to his GF via CM set up transport. CM to follow.
[2022-11-11 11:19] VITALS: BP 122/69; PULSE 72; RESP 18; TEMP 36.6; O2SAT 99
--- NOTE | 2022-11-11 14:00 | MHC.RECOVRN ---
This principal technical writer met with patient after addiction consult was received. Pt resting in bed, pt reports hard to get comfortable due to abdominal pain. 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 Pt reports prior to two weeks, in recovery for 20 months. Pt states went through detox treatment 20 months ago, completed TSS level of care at [facility] and [facility]. Pt reports hx of ETOH seizures, last seizure 2019 and AVH. Pt reports prior to receiving Ativan this morning, active AVH, pt states someone was right next to him talking to him all night. Pt currently denies AVH. 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 Pt states recurrence was due to loss of Grandmother 2 weeks ago. Pt states since August 2022, has had increased stress, was hospitalized, working 50 hours per week, 50 pounds weightloss. Pt states compounding factors and loss of grandmother led to recurrence. This principal technical writer and patient reviewed recovery supports. Pt states in the past was on AKSHAT INJ, however, stopped due to pt working in [place] and AKSHAT INJ being administered in [place]. Pt states interested in AKSHAT INJ, reviewed clinics in [place] area. Pt agreeable to appt at [facility], [address], [facility] for naltrexone/AKSHAT INJ as a part of d/c plan from the hospital.
[2022-11-11 14:31] VITALS: BP 134/88; PULSE 84; RESP 18; TEMP 36.6; O2SAT 96
--- NOTE | 2022-11-11 16:27 | HO.PM.IMPN ---
Subjective Subjective Date of Service: 11/11/22 Interval History: continues with mid epigastric left upper quadrant pain. Persistent CIWA requiring Ativan. No seizures Review of Systems denies chest pain Denies shortness of breath Admits to nausea denies diarrhea /vomiting denies fever chills Physical Exam Vital Signs: Vital Signs: Last Vital Signs Temp 97.9 F 11/11/22 14:31 Pulse 84 11/11/22 14:31 Resp 18 11/11/22 14:31 BP 134/88 11/11/22 14:31 Pulse Ox 96 11/11/22 14:31 O2 Del Method Room Air 11/11/22 14:31 BMI result Body Mass Index 28.7 Const: Other: awake alert no acute di Resp: Other: clear to auscultation bilaterally no rales rhonchi or wheezes Cardio: Other: no S4; positive S1-S2; no S3 murmurs rubs or gallops GI: Other: soft nontender nondistended normoactive bowel sounds Extrem: Other: no edema bilaterally Objective Data Active Medications Buspirone HCl (Buspirone Hcl 5 Mg Tablet) 5 mg PO BID [facility] Last Admin: 11/11/22 08:25 Dose: 5 mg Documented By: FRANCIS Clonidine HCl (Clonidine Hcl 0.1 Mg Tablet) 0.1 mg PO BEDTIME PRN; Protocol PRN Reason: Insomnia Clonidine HCl (Clonidine Hcl 0.1 Mg Tablet) 0.1 mg PO BID [facility]; Protocol Last Admin: 11/11/22 08:25 Dose: 0.1 mg Documented By: FRANCIS Folic Acid (Folic Acid 1 Mg Tablet) 1 mg PO DAILY [facility] Last Admin: 11/11/22 09:02 Dose: 1 mg Documented By: FRANCIS Thiamine HCl 100 mg/ Sodium (Chloride) 101 mls @ 202 mls/hr IV DAILY [facility] Last Infusion: 11/11/22 09:03 Dose: 0 mls/hr Documented By: FRANCIS Lactated Ringer's (Lr) 1,000 mls @ 150 mls/hr IVCONT .Q6H40M [facility] Last Admin: 11/11/22 15:37 Dose: 150 mls/hr Documented By: FRANCIS Lorazepam (Lorazepam 2 Mg/Ml Vial) 1 mg IVPUSH Q4H [facility]; Taper Stop: 11/14/22 16:44 Last Admin: 11/11/22 12:44 Dose: 1 mg Documented By: FRANCIS Lorazepam (Lorazepam 2 Mg/Ml Vial) 2 mg IVPUSH Q4H PRN PRN Reason: Breakthrough alcohol withdrawa Morphine Sulfate (Morphine Sulfate 4 Mg/Ml Cartridge) 3 mg IVPUSH Q3H PRN; Protocol PRN Reason: Pain, Mild (Pain Scale 1-3) Last Admin: 11/11/22 12:50 Dose: 3 mg Documented By: FRANCIS Ondansetron HCl (Ondansetron Hcl 4 Mg/2 Ml Vial) 4 mg IVPUSH Q4H PRN PRN Reason: Nauseated Last Admin: 11/10/22 14:19 Dose: 4 mg Documented By: PETAR Pantoprazole Sodium (Pantoprazole Sodium 40 Mg/10 Ml Vial) 40 mg IVPUSH BID [facility] Last Admin: 11/11/22 08:26 Dose: 40 mg Documented By: FRANCIS Pharmacy Consult (Consult Rx Perform Med Rec) 1 each MISCELLANE ONCE PRN PRN Reason: Consult order Pharmacy Consult (Consult Rx Etoh Phenob Im/Po) 1 each MISCELLANE ONCE PRN; Protocol PRN Reason: Consult order Sertraline HCl (Sertraline Hcl 100 Mg Tablet) 200 mg PO DAILY [facility] Last Admin: 11/11/22 08:25 Dose: 200 mg Documented By: FRANCIS Sodium Chloride (0.9 % Sodium Chloride Flush 3 Ml Syringe) 3 ml IVFLUSH QSHIFT [facility] Last Admin: 11/11/22 08:27 Dose: 3 ml Documented By: FRANCIS Labs 11/11/22 09:10 11/11/22 09:10 Labs: Laboratory Results - last 24 hr 11/10/22 11/11/22 11/11/22 17:00 09:10 09:10 MCV 90.2 MCH 31.9 MCHC 35.4 RDW 15.8 Plt Count 53 L MPV 10.0 Immature Gran % (Auto) 0.2 Neut % (Auto) 44.0 L Lymph % (Auto) 42.6 H [place] % (Auto) 8.5 Eos % (Auto) 4.0 Baso % (Auto) 0.7 Lymph # (Auto) 1.8 [place] # (Auto) 0.4 Eos # (Auto) 0.2 Baso # (Auto) 0.0 Abs Immat Gran (auto) 0.01 Absolute Neuts (auto) 1.9 L Absolute Nucleated RBC 0.020 H Nucleated RBC % (auto) 0.5 H Anion Gap 20 Estim Creat Clear Calc 141.5 Estimated GFR > 60 Random Glucose 99 Calcium 8.9 D Total Bilirubin 2.6 H AST 317 H ALT 221 H Alkaline Phosphatase 118 H Total Protein 6.2 L Albumin 3.7 Urine Opiates Screen Not Detected Urine Fentanyl Screen Not Detected Ur Barbiturates Screen POSITIVE H Ur Phencyclidine Scrn Not Detected Ur Amphetamines Screen Not Detected U Benzodiazepines Scrn Not Detected Urine Cocaine Screen Not Detected U Marijuana (THC) Screen Not Detected Microbiology Microbiology Results: Microbiology 11/10/22 08:06 Blood Culture - Preliminary Blood - Venous No growth after 24 hours. 11/10/22 07:43 Blood Culture - Preliminary Blood - Venous No growth after 24 hours. Assessment and Plan (1) Acute alcoholic pancreatitis: Status: Acute (2) Acute alcoholic hepatitis: Status: Acute (3) Acute hypokalemia: Status: Acute Plan 37 yo M hx of alcohol abuse and dependence, recent alcoholic pancreatitis at [facility], HTN-came to the hospital because of alcohol intoxication, pancreatitis acute. 1. Alcoholic pancreatitis - mild improvement clinically - trial clear liquids - continue IV fluids/pain management 2. Alcohol intoxication, impending alcohol withdrawal -CIWA scale elevated necessitating Ativan. . . No seizures thus far -Thiamine/folic acid 3. Alcoholic transaminitis - downward trend - follow LFTs daily 4. Hypokalemia -resolved -follow renals/divalents full code boots requires ongoing hospitalization for IV alcohol secondary to alcohol withdrawal Time Spent With Patient Time: Total time managing care of this patient today ____ minutes. Quality Stroke Does the patient have a stroke diagnosis?: No VTE Prior VTE?: No VTE Risk Level:: Medical - moderate - high VTE Device Contraindication: N/A - Device Ordered VTE Drug Contraindication: N/A - Med Ordered
[2022-11-11 20:00] VITALS: BP 140/84; PULSE 66; RESP 18; TEMP 36.2; O2SAT 98
[2022-11-11 23:13] VITALS: BP 134/80; PULSE 68; RESP 18; TEMP 36.1; O2SAT 96
[2022-11-11] MEDS: LORazepam 2 MG/ML VIAL IVPUSH (23:48)
[2022-11-12] VITALS (20 sets, daily range): BP systolic 98–154; BP diastolic 64–93; PULSE 59–88; RESP 18–28; TEMP 35.5–37.1; O2SAT 91–96
--- NOTE | 2022-11-12 00:41 | PM.EVENT ---
Event Note Date of Service: 11/12/22 Event Note: pt Ciwa 19 despite ativa. started on phenobarb protocol Time Spent With Patient Time: Total time managing care of this patient today ____ minutes.
[2022-11-12] MEDS: Morphine Sulfate 4 MG/ML CARTRIDGE 3 MG IVPUSH (02:27)
--- NOTE | 2022-11-12 05:45 | W.PM.CCCN ---
History of Present Illness Data of Consult Service Date: 11/12/22 Requesting physician: Babs Grijalva Primary Care Provider: Beny Kothari MD HPI Reason for consult: ETOH withdrawel Mr. Tristan is a 37-year-old male with a history of HTN, alcohol abuse, and recent alcoholic pancreatitis at [facility] admitted on 11/10/2022 with acute alcoholic pancreatitis, elevated LFTs, acute lactic acidosis, hypokalemia, and alcohol intoxication with impending alcohol withdrawal and was started on a CIWA protocol. Despite multiple doses of Ativan, Zyprexa, and phenobarb, his CIWA score remained persistently high. He will be transferred to the ICU for further management.? Review of Systems Review of Systems: Yes Unobtainable due to mental condition Neurologic: Reports confusion (hallucinating) Psychiatric: Psychiatric: Reports confusion (hallucinating) [facility] Social History Social History Household Members: Spouse Housing: Apartment Do you presently have visiting nurse or other home services: No Alcohol intake: current Alcohol intake frequency: 3 or more drinks per day Alcohol type: hard liquor Patient Tobacco Use Status: Current everyday Tobacco user Tobacco use type: Cigarette Cigarettes Per Day: 4 Years Smoked: 16 Advance Directives Date on File: 11/10/22 service: No Meds Allergies Allergy/AdvReac Type Severity Reaction Status Date / Time fluoxetine [From PROZAC] Allergy Unknown UNKNOWN Verified 11/10/22 06:03 Penicillins [PENICILLINS] Allergy Unknown UNKNOWN Verified 11/10/22 06:03 Active Medications: Current Medications Buspirone HCl (Buspirone Hcl 5 Mg Tablet) 5 mg PO BID [facility] Last Admin: 11/11/22 21:37 Dose: 5 mg Clonidine HCl (Clonidine Hcl 0.1 Mg Tablet) 0.1 mg PO BEDTIME PRN; Protocol PRN Reason: Insomnia Clonidine HCl (Clonidine Hcl 0.1 Mg Tablet) 0.1 mg PO BID [facility]; Protocol Last Admin: 11/11/22 21:37 Dose: 0.1 mg Folic Acid (Folic Acid 1 Mg Tablet) 1 mg PO DAILY [place] Last Admin: 11/11/22 09:02 Dose: 1 mg Thiamine HCl 100 mg/ Sodium (Chloride) 101 mls @ 202 mls/hr IV DAILY [facility] Last Infusion: 11/11/22 09:03 Dose: Infused Lactated Ringer's (Lr) 1,000 mls @ 150 mls/hr IVCONT .Q6H40M [facility] Last Admin: 11/11/22 21:38 Dose: 150 mls/hr Dexmedetomidine HCl (Precedex) 400 mcg in 100 mls @ 0 mls/hr IVCONT .Q0M [facility]; Protocol Morphine Sulfate (Morphine Sulfate 4 Mg/Ml Cartridge) 3 mg IVPUSH Q3H PRN; Protocol PRN Reason: Pain, Mild (Pain Scale 1-3) Last Admin: 11/12/22 02:27 Dose: 3 mg Ondansetron HCl (Ondansetron Hcl 4 Mg/2 Ml Vial) 4 mg IVPUSH Q4H PRN PRN Reason: Nauseated Last Admin: 11/10/22 14:19 Dose: 4 mg Pantoprazole Sodium (Pantoprazole Sodium 40 Mg/10 Ml Vial) 40 mg IVPUSH BID [facility] Last Admin: 11/11/22 21:37 Dose: 40 mg Pharmacy Consult (Consult Rx Perform Med Rec) 1 each MISCELLANE ONCE PRN PRN Reason: Consult order Sertraline HCl (Sertraline Hcl 100 Mg Tablet) 200 mg PO DAILY [facility] Last Admin: 11/11/22 08:25 Dose: 200 mg Sodium Chloride (0.9 % Sodium Chloride Flush 3 Ml Syringe) [facility] Last Admin: 11/11/22 21:44 Dose: 3 ml Home Medications Medication Instructions Recorded Confirmed Last Taken Type buspirone 5 mg tablet 5 mg PO BID 11/10/22 11/10/22 1 Week Ago History ~11/03/22 clonidine HCl 0.1 mg tablet 0.1 mg PO BEDTIME PRN Insomnia 11/10/22 11/10/22 11/09/22 History sertraline 100 mg tablet 200 mg PO DAILY 11/10/22 11/10/22 1 Week Ago History ~11/03/22 Physical Exam Vital Signs: Vital Signs: Last Vital Signs Temp 98.7 F 11/12/22 03:22 Pulse 82 11/12/22 03:22 Resp 18 11/12/22 03:22 BP 154/93 H 11/12/22 03:22 Pulse Ox 95 11/12/22 03:22 O2 Del Method Room Air 11/12/22 03:22 BMI result Body Mass Index 28.7 Const: General: Physically active, confusion (hallucinating) and diaphoretic; No cooperative Orientation/consciousness: confusion (hallucinating) HEENT: Head: Yes normocephalic and Yes atraumatic General nose exam: Normal external nose present (Nares patent, septum midline, sinuses nontender bilaterally.) Mouth: Normal oral and palatal mucosa present (No thrush, tongue in midline, mucosa moist.) Throat: Yes other (No erythema, no exudate.) Neck: Neck: Yes supple (no thyromegaly, trachea midline.) Carotids: normal carotid upstroke Resp: Auscultation: clear to auscultation bilaterally (normal work of breathing, no accessory muscle use) Cardio: Jugular venous distension: no JVD Rate: regular rate Rhythm: regular rhythm Heart sounds: no gallops, no murmurs and no rubs Peripheral pulses: Peripheral pulses 2+ throughout GI: Palpation (GI): Soft to palpation and nontender Auscultation: normal bowel sounds Neuro: General: confusion (hallucinating) Extrem: General: Yes full ROM, Yes capillary refill normal and Yes no clubbing, cyanosis or edema Psych: Speech and movement: Restless speech present Thought content: Hallucination(s) present Results Labs 11/11/22 09:10 11/11/22 09:10 Labs: Short CBC 11/11/22 Range/Units 09:10 WBC 4.2 L (4.8-10.8) X10*3/uL Hgb 14.0 (14.0-18.0) g/dl Hct 39.6 L (42.0-52.0) % Plt Count 53 L (160-400) X10*3/uL BMP 11/11/22 09:10 Sodium 134 L Potassium 3.4 Chloride 96 Carbon Dioxide 21 L BUN 4 L Creatinine 0.72 Calcium 8.9 D Liver Function 11/11/22 Range/Units 09:10 Total Bilirubin 2.6 H (0.0-1.0) mg/dL AST 317 H (5-37) U/L ALT 221 H (0-40) U/L Alkaline Phosphatase 118 H (39-117) U/L Albumin 3.7 (3.5-5.0) g/dL Microbiology Microbiology Results: Microbiology 11/10/22 08:06 Blood - Venous Blood Culture - Preliminary No growth after 24 hours. 11/10/22 07:43 Blood - Venous Blood Culture - Preliminary No growth after 24 hours. Assessment and Plan (1) Acute alcoholic pancreatitis: Status: Acute (2) Acute alcoholic hepatitis: Status: Acute (3) Acute hypokalemia: Status: Acute (4) Alcoholic ketoacidosis: Status: Acute Plan 37 yo M? hx of? alcohol abuse and dependence,? recent alcoholic pancreatitis at [facility],? HTN admitted for alcohol intoxication, acute pancreatitis Neuro:Alcohol withdrawal syndrome:? Alcohol level 300 on arrival. ? Transferred from the floor with delirium tremens.? No seizure activity thus far. Continue phenobarb protocol. Thiamine/folic acid. Start Precedex. Cardiac: ? No acute issues. Pulmonary: No acute issues Renal: ? Hypokalemic on admission. Continue to trend electrolytes, renal indices.? Replace as needed. Endo:? No acute issues.? GI: Elevated LFTs: due to alcohol pancreatitis. Continue IV fluids/pain management, PPI.? Follow LFTs. Heme/Onc: Thrombocytoepnia? likely due to alcohol intake, no signs of bleeding at this time.? Psych:? Alcohol abuse. ?Addiction consult ordered. Time Spent With Patient Time: Total time managing care of this patient today ____ minutes.
[2022-11-12] MEDS: Lactated Ringers 1,000 ML 150 ML IVCONT (05:53)
[2022-11-12 05:55] LABS: MANUAL DIFF FLAG NO
[2022-11-12 05:58] LABS: Basophils Percent Auto 0.5 % (0-2); Eosinophils Absolute Auto 0.1 X10*3/uL (0.0-0.4); Eosinophils Percent Auto 2.1 % (0-4); Hematocrit 39.2 % (42.0-52.0); Hemoglobin 13.9 g/dl (14.0-18.0); Imm Gran Abs Auto 0.02 X10*3/uL (0.00-0.03); Imm Gran Pct Auto 0.5 % (0.0-0.4); Lymphocytes Absolute Auto 1.1 X10*3/uL (1.2-4.9); Lymphocytes Percent Auto 28.6 % (20-40); Mean Corpuscular HGB Conc 35.5 g/dl (31.0-36.0); Mean Corpuscular Hemoglobin 31.7 pg (27.0-33.0); Mean Corpuscular Volume 89.3 fL (80.0-98.0); Mean Platelet Volume 9.7 fL (9.4-12.4); Monocytes Absolute Auto 0.4 X10*3/uL (0.1-1.2); Monocytes Percent Auto 10.3 % (2-11); NRBC Pct Auto 0.5 /100WBC (0.0-0.2); Neutrophils Absolute Auto 2.2 x10*3/uL (2.0-8.3); Red Blood Count 4.39 X10*6/uL (4.60-5.80); Red Cell Distribution Width 15.4 % (11.0-16.0); White Blood Count 3.8 X10*3/uL (4.8-10.8)
--- NOTE | 2022-11-12 05:58 | PC.NURSE ---
Progressively during shift pt became more aggitated, MD was made aware and medications were given. Security was called twice and ICU was consulted. Pt was transferred to ICU after CIWA of 22 and pt visably trying to get out of bed. Bedside report given to RN taking over. Pt belongings @ bedside with him.
[2022-11-12 05:59] LABS: Platelet Count 71 X10*3/uL (160-400)
[2022-11-12 06:21] LABS: Alanine Aminotransferase 195 U/L (0-40); Albumin Level 4.1 g/dL (3.5-5.0); Alkaline Phosphatase 119 U/L (39-117); Anion Gap 18 (12-20); Aspartate Amino Transferase 214 U/L (5-37); Bilirubin Total 2.3 mg/dL (0.0-1.0); Blood Urea Nitrogen < 3 mg/dL (9-16); Carbon Dioxide 26 mmol/L (22-29); Chloride 94 mmol/L (96-108); Creatinine Clr Calc Pharmacy 147.7; Estimated Glomerular Filt Rate > 60; Glucose Fasting 203 mg/dL (60-99); Magnesium 1.4 mg/dL (1.6-2.6); Phosphorus 1.1 mg/dL (2.7-4.5); Potassium 2.9 mmol/L (3.3-5.1); Sodium 135 mmol/L (135-145); Total Protein 6.6 g/dL (6.5-8.0)
--- NOTE | 2022-11-12 07:01 | PC.NURSE ---
Pt transferred to ICU from [facility] at approx 0530. Pt in significant ETOH withdraw, diaphoretic, actively hallucinating, non-redirectable, attempting to get OOB and displace lines. Precedex started and titrated per JUL. Additionally, given Benadryl 50 mg IVP x1 with good effect. Afebrile. NSR on tele, HR 60-80s. BP WNL. Saturating well on room air. Condom cath placed on pt. Labs drawn and IV placed. Mag/Kphos replaced per JUL. Skin overall intact. Camera in place for pt safety. Resting quietly at this time.
[2022-11-12] MEDS: Pantoprazole Sodium 40 MG/10 ML VIAL IVPUSH ×2 (08:20→21:51)
[2022-11-12] MEDS: Thiamine HCL 100 MG in 0.9 % Sodium Chloride 100 ML 202 MG IV (08:20)
[2022-11-12] MEDS: Thiamine HCL 400 MG in 0.9 % Sodium Chloride 100 ML 208 MG IV (08:40)
[2022-11-12] MEDS: Folic Acid 2 MG in 0.9 % Sodium Chloride 50 ML 100.4 MG IV (09:30)
[2022-11-12] MEDS: 0.9 % Sodium Chloride Flush 3 ML SYRINGE IVFLUSH (15:16)
[2022-11-12] MEDS: PHENobarbitaL 15 MG TABLET 45 MG PO (22:45)
[2022-11-13] VITALS (18 sets, daily range): BP systolic 91–125; BP diastolic 43–100; PULSE 59–100; RESP 12–27; TEMP 35.6–37.5; O2SAT 93–98; BMI 28.6
[2022-11-13] MEDS: 0.9 % Sodium Chloride Flush 3 ML SYRINGE IVFLUSH ×4 (01:48→20:05)
[2022-11-13 04:59] LABS: Venous Blood Gas Refer to POC result
[2022-11-13 05:15] LABS: Basophils Percent Auto 0.8 % (0-2); Imm Gran Abs Auto 0.03 X10*3/uL (0.00-0.03); Imm Gran Pct Auto 0.6 % (0.0-0.4); MANUAL DIFF FLAG SCAN; NRBC Pct Auto 0.8 /100WBC (0.0-0.2); Neutrophils Absolute Auto 2.2 x10*3/uL (2.0-8.3); PLT CLUMP 1; SCAN SMEAR FLAG 1
[2022-11-13 05:17] LABS: Eosinophils Absolute Auto 0.2 X10*3/uL (0.0-0.4); Hematocrit 40.8 % (42.0-52.0); Hemoglobin 14.2 g/dl (14.0-18.0); Lymphocytes Percent Auto 39.2 % (20-40); Mean Corpuscular HGB Conc 34.8 g/dl (31.0-36.0); Mean Corpuscular Hemoglobin 31.8 pg (27.0-33.0); Mean Corpuscular Volume 91.5 fL (80.0-98.0); Mean Platelet Volume 9.9 fL (9.4-12.4); Monocytes Absolute Auto 0.6 X10*3/uL (0.1-1.2); Monocytes Percent Auto 11.2 % (2-11); Neutrophils Percent Auto 44.2 % (45-73); Red Blood Count 4.46 X10*6/uL (4.60-5.80)
[2022-11-13 05:18] LABS: Platelet Count 95 X10*3/uL (160-400)
[2022-11-13 05:34] LABS: Albumin Level 3.5 g/dL (3.5-5.0); Anion Gap 21 (12-20); Blood Urea Nitrogen 4 mg/dL (9-16); Calcium 9.2 mg/dL (8.4-10.2); Carbon Dioxide 24 mmol/L (22-29); Chloride 98 mmol/L (96-108); Creatinine Clr Calc Pharmacy 169.8; Estimated Glomerular Filt Rate > 60; Glucose Random 95 mg/dL (60-115); Magnesium 1.7 mg/dL (1.6-2.6); Phosphorus 3.5 mg/dL (2.7-4.5); Potassium 3.6 mmol/L (3.3-5.1); Sodium 139 mmol/L (135-145)
[2022-11-13 05:40] LABS: SLIDE REVIEW VERIFIED
--- NOTE | 2022-11-13 08:21 | PM.CCPN ---
Subjective Subjective Date of Service: 11/13/22 Interval History: 87-year-old gentleman with underlying history of hypertension and alcohol dependence admitted on 11/10/2022 with alcohol intoxication, mild pancreatitis, further complicated by alcohol withdrawal requiring sedative drips. Titrated off Precedex on 11/12/2022. Critical Care Time (minutes): 0 Physical Exam Vital Signs: Vital Signs: Last Vital Signs Temp 99.1 F 11/13/22 08:00 Pulse 66 11/13/22 08:00 Resp 23 H 11/13/22 08:00 BP 101/55 L 11/13/22 08:00 Pulse Ox 95 11/13/22 08:00 O2 Del Method Room Air 11/13/22 08:00 BMI result Body Mass Index 28.6 Const: General: no acute distress, alert and awake Eyes: Sclerae: sclerae normal EOM: EOMs intact bilaterally Neck: Neck: Yes no lymphadenopathy, Yes trachea midline and Yes supple Resp: Effort & Inspection: normal respiratory effort and no respiratory distress Auscultation: clear to auscultation bilaterally Cardio: Rate: regular rate Rhythm: regular rhythm Heart sounds: no gallops, no murmurs and no rubs GI: Palpation (GI): Soft to palpation and Other GI palpation findings present ( Nontender) Auscultation: normal bowel sounds Extrem: General: Yes no pedal edema, No clubbing and No cyanosis Objective Data Labs 11/13/22 04:50 11/13/22 04:50 Labs: Laboratory Results - last 24 hr 11/13/22 11/13/22 11/13/22 04:46 04:50 04:50 WBC Cancelled 5.0 RBC Cancelled 4.46 L Hgb Cancelled 14.2 Hct Cancelled 40.8 L MCV Cancelled 91.5 MCH Cancelled 31.8 MCHC Cancelled 34.8 RDW Cancelled 16.0 Plt Count Cancelled 95 L D MPV Cancelled 9.9 Immature Gran % (Auto) Cancelled 0.6 H Neut % (Auto) Cancelled 44.2 L Lymph % (Auto) Cancelled 39.2 Dillon % (Auto) Cancelled 11.2 H Eos % (Auto) Cancelled 4.0 Baso % (Auto) Cancelled 0.8 Lymph # (Auto) Cancelled 2.0 Dillon # (Auto) Cancelled 0.6 Eos # (Auto) Cancelled 0.2 Baso # (Auto) Cancelled 0.0 Abs Immat Gran (auto) Cancelled 0.03 Absolute Neuts (auto) Cancelled 2.2 Absolute Nucleated RBC Cancelled 0.040 H Nucleated RBC % (auto) Cancelled 0.8 H Smear Tech's Comments VERIFIED VBG pH 7.50 H VBG pCO2 37 VBG pO2 40 VBG HCO3 29 H VBG O2 Saturation 69.0 VBG Base Excess 6.6 Sodium Potassium Chloride Carbon Dioxide Anion Gap BUN Creatinine Estim Creat Clear Calc Estimated GFR Random Glucose Calcium Phosphorus Magnesium Albumin 11/13/22 04:50 WBC RBC Hgb Hct MCV MCH MCHC RDW Plt Count MPV Immature Gran % (Auto) Neut % (Auto) Lymph % (Auto) Dillon % (Auto) Eos % (Auto) Baso % (Auto) Lymph # (Auto) Dillon # (Auto) Eos # (Auto) Baso # (Auto) Abs Immat Gran (auto) Absolute Neuts (auto) Absolute Nucleated RBC Nucleated RBC % (auto) Smear Tech's Comments VBG pH VBG pCO2 VBG pO2 VBG HCO3 VBG O2 Saturation VBG Base Excess Sodium 139 Potassium 3.6 D Chloride 98 Carbon Dioxide 24 Anion Gap 21 H BUN 4 L Creatinine 0.60 Estim Creat Clear Calc 169.8 Estimated GFR > 60 Random Glucose 95 Calcium 9.2 D Phosphorus 3.5 Magnesium 1.7 Albumin 3.5 Microbiology Microbiology Results: Microbiology 11/10/22 08:06 Blood - Venous Blood Culture - Preliminary No growth after 48 hours. 11/10/22 07:43 Blood - Venous Blood Culture - Preliminary No growth after 48 hours. Progress Note: A&P Assessment and plan (1) Delirium tremens: Status: Acute (2) Acute alcoholic hepatitis: Status: Acute (3) Acute alcoholic pancreatitis: Status: Acute Plan Assessment: 37-year-old gentleman admitted wears alcohol intoxication, mild alcoholic pancreatitis, further complicated by delirium tremens Plan: Neuro: delirium tremens common titrated off Precedex drip. Now on phenobarbital protocol. Cardiac: No acute issues. Pulmonary: No acute issues. Renal: No acute issues. Endo: No acute issues. GI: Alcoholic pancreatitis and hepatitis improving. ID: No acute issues Heme/Onc: No acute issues. Psych: No acute issues. Miscellaneous: No acute issues. Prophylaxis: Heparin Diet: regular Quality Stroke Does the patient have a stroke diagnosis?: No VTE Prior VTE?: No VTE Risk Level:: Medical - moderate - high VTE Device Contraindication: N/A - Device Ordered VTE Drug Contraindication: N/A - Med Ordered
[2022-11-13] MEDS: Thiamine HCL 400 MG in 0.9 % Sodium Chloride 100 ML 208 MG IV (08:41)
[2022-11-13] MEDS: PHENobarbitaL 15 MG TABLET 45 MG PO ×2 (09:04→20:04)
--- NOTE | 2022-11-13 12:16 | PC.NURSE ---
Colbert catheter removed 12:00 DTV 18:00 pt had first void 12:15, 20 ml pink tinged urine DTV #2 18:15
--- NOTE | 2022-11-13 13:49 | PC.NURSE ---
Assumed care of patient at this time.
--- NOTE | 2022-11-13 15:16 | MHC.RECOVRN ---
Chart reviewed. Pt transferred from ICU to IMC today. Will see pt on 11/14/22. Dorie Fu APRN, aware.
[2022-11-14 03:42] VITALS: BP 108/68; PULSE 61; RESP 18; TEMP 36.6; O2SAT 97
[2022-11-14 05:56] VITALS: BMI 29.1
[2022-11-14 08:00] VITALS: BP 130/88; PULSE 82; RESP 20; TEMP 37.1; O2SAT 98
[2022-11-14] MEDS: PHENobarbitaL 15 MG TABLET 45 MG PO (09:04)
[2022-11-14] MEDS: 0.9 % Sodium Chloride Flush 3 ML SYRINGE IVFLUSH ×2 (09:05→16:32)
--- NOTE | 2022-11-14 11:23 | HO.PM.IMPN ---
Subjective Subjective Date of Service: 11/14/22 Interval History: f/u on alcohol withdrawal that was managed in icu interval history: no sings of withdrwal, Physical Exam Vital Signs: Vital Signs: Last Vital Signs Temp 98.8 F 11/14/22 08:00 Pulse 82 11/14/22 08:00 Resp 20 11/14/22 08:00 BP 130/88 11/14/22 08:00 Pulse Ox 98 11/14/22 08:00 O2 Del Method Room Air 11/14/22 08:00 BMI result Body Mass Index 29.1 Const: Other: General: AO X 3, no acute distress Resp: CTA bilateral CVS: S1,S2,RRR GI: +BS, NT, no distention Skin: No rash Neuro: motor grossly intact Psych: appropriate affect Objective Data Active Medications Folic Acid (Folic Acid 1 Mg Tablet) 2 mg PO DAILY REPLACED BY [facility] Last Admin: 11/14/22 09:05 Dose: 2 mg Documented By: TAWANDA Heparin Sodium (Porcine) (Heparin Sodium,Porcine 5,000 Unit/Ml Vial) 5,000 unit SUBCUT Q8H REPLACED BY [facility] Last Admin: 11/14/22 09:04 Dose: 5,000 unit Documented By: TAWANDA Thiamine HCl 400 mg/ Sodium (Chloride) 104 mls @ 208 mls/hr IV DAILY REPLACED BY [facility] Last Admin: 11/14/22 09:04 Dose: Not Given Documented By: TAWANDA Non-Admin Reason: Congestion Melatonin (Melatonin 3 Mg Tablet) 6 mg PO BEDTIME PRN PRN Reason: Insomnia Last Admin: 11/13/22 23:57 Dose: 6 mg Documented By: ZAHEER Ondansetron HCl (Ondansetron Hcl 4 Mg/2 Ml Vial) 4 mg IVPUSH Q4H PRN PRN Reason: Nauseated Last Admin: 11/10/22 14:19 Dose: 4 mg Documented By: PETAR Pharmacy Consult (Consult Rx Perform Med Rec) 1 each MISCELLANE ONCE PRN PRN Reason: Consult order Pharmacy Consult (Consult Rx Etoh Phenob Im/Po) 1 each MISCELLANE ONCE PRN; Protocol PRN Reason: Consult order Phenobarbital (Phenobarbital 30 Mg Tablet) 30 mg PO BID REPLACED BY [facility]; Protocol Stop: 11/16/22 09:01 Phenobarbital (Phenobarbital 30 Mg Tablet) 30 mg PO DAILY REPLACED BY [facility]; Protocol Stop: 11/18/22 09:01 Sodium Chloride (0.9 % Sodium Chloride Flush 3 Ml Syringe) 3 ml IVFLUSH QSHIFT REPLACED BY [facility] Last Admin: 11/14/22 09:05 Dose: 3 ml Documented By: TAWANDA Thiamine HCl (Thiamine Hcl 100 Mg Tablet) 300 mg PO DAILY REPLACED BY [facility] Last Admin: 11/14/22 09:04 Dose: 300 mg Documented By: TAWANDA Labs 11/14/22 06:26 11/14/22 06:26 Labs: Laboratory Results - last 24 hr 11/14/22 11/14/22 11/14/22 06:26 06:26 06:26 MCV 93.2 MCH 31.8 MCHC 34.1 RDW 16.1 H Plt Count 135 L D MPV 9.6 Immature Gran % (Auto) 0.7 H Neut % (Auto) 38.0 L Lymph % (Auto) 44.6 H Love % (Auto) 13.4 H Eos % (Auto) 2.6 Baso % (Auto) 0.7 Lymph # (Auto) 2.0 Love # (Auto) 0.6 Eos # (Auto) 0.1 Baso # (Auto) 0.0 Abs Immat Gran (auto) 0.03 Absolute Neuts (auto) 1.7 L Absolute Nucleated RBC 0.020 H Nucleated RBC % (auto) 0.4 H Anion Gap 14 20 Estim Creat Clear Calc 168.1 168.1 Estimated GFR > 60 > 60 Random Glucose 177 H 182 H Calcium 9.0 9.2 Phosphorus 2.5 L Magnesium 1.9 Total Bilirubin 1.4 H 1.4 H Direct Bilirubin 0.7 H AST 242 H 247 H ALT 202 H 207 H Alkaline Phosphatase 115 117 Total Protein 6.2 L 6.3 L Albumin 3.6 3.6 Assessment and Plan (1) Delirium tremens: Status: Acute (2) Acute alcoholic pancreatitis: Status: Acute (3) Acute alcoholic hepatitis: Status: Acute (4) Acute hypokalemia: Status: Acute (5) Alcoholic ketoacidosis: Status: Acute Plan 37 yo M? hx of? alcohol abuse and dependence,? recent alcoholic pancreatitis at [facility],? HTN-came to the hospital on 11/10 because of alcohol intoxication, pancreatitis acute and 11/12 was transfer to ICU d/t escalating alcohol withdrawal and Alcoholic pancreatitis, clinically resolved and tolerating regular diet. DTs, treated in ICU x 1 day, med managment include ativan and now Phenobarb, Thiamine and folate supplement, addiction team following him. Elevated LFTS-s/t alcohol use, negative hep a, b (reactiv BS antibody), c acute lactic acidosis, Not due sepsis Active smoker: advise to stop, NRT Hypokalemia:? correct, now normal DVT prophylaxis:? Will avoid chemoprophylaxis for now because platelets are only 69.? SCD. Above management discussed with the patient in detail and he understand and in agreement with the above plan, time spent 70 minute, patient full code. Time Spent With Patient Time: Total time managing care of this patient today ____ minutes. Quality Stroke Does the patient have a stroke diagnosis?: No VTE Prior VTE?: No VTE Risk Level:: Medical - moderate - high VTE Device Contraindication: N/A - Device Ordered VTE Drug Contraindication: N/A - Med Ordered
[2022-11-14 11:33] VITALS: BP 107/84; PULSE 81; RESP 20; TEMP 37.1; O2SAT 98
--- NOTE | 2022-11-14 13:05 | MHC.RECOVRN ---
Addendum entered by Megan Alvarado RN 11/14/22 14:06: Reviewed with Provider, LFT's high, naltrexone contraindicated, campral option. Reviewed this with patient, patient declines campral, pt reports will f/u with the [facility] outpt tx. Appt card given to pt. Pt reports sweats, anxiety, RN made aware. Original Note: This typewriter mechanic met with patient, patient resting in bed, alert, awake. Pt reports feeling better, more stable. This typewriter mechanic and patient reviewed [facility] recovery supports as a part of d/c plan. Pt interested in starting Naltrexone while in the hospital, as discussed previously, pt interested in appt at the [facility], pt is interested in [facility], reports success in the past with Vivitrol Injection and abstienence. Pt reports has been in touch with his today who is in recovery; pt reports has not reached out to sponsor and recovery supports since hospitalized. Pt encouraged to do so, to ensure supports are set up prior to d/c. Pt states is feeling better, withdrawal managed, pt reports concerns with ambulation as has not walked in a week and lives in apartment with 2 floors, bathroom on 2nd floor . Alma Rosa alba RN is aware. Appt scheduled for MAT Intake at the [facility], [address] Sunday11/17/22. Dorie Fu aware pt interested in Naltrexone at this time.
--- NOTE | 2022-11-14 13:33 | PM.EVENT ---
Event Note Date of Service: 11/14/22 Event Note: Addiction consult placed for patient Seen by independent consultant and verbalized interest in [facility]. Please see note dated 11/14/22 for additional details Plan: Naltrexone not a great option at this time due to elevated LFTs Campral 666mg TID can be started once withdrawal management complete Appt at [facility] in place for continuation of treatment outpatient Time Spent With Patient Time: Total time managing care of this patient today ____ minutes.
[2022-11-14 15:19] VITALS: BP 118/72; PULSE 77; RESP 20; TEMP 36.3; O2SAT 97
[2022-11-14 19:11] VITALS: BP 103/76; PULSE 77; RESP 20; TEMP 36.4; O2SAT 98
[2022-11-14] MEDS: PHENobarbitaL 30 MG TABLET PO (20:33)
[2022-11-15] VITALS (8 sets, daily range): BP systolic 104–149; BP diastolic 58–87; PULSE 59–77; RESP 16–20; TEMP 36.5–37.3; O2SAT 97–98; BMI 29.6
[2022-11-15] MEDS: 0.9 % Sodium Chloride Flush 3 ML SYRINGE IVFLUSH ×3 (01:50→21:18)
[2022-11-15] MEDS: PHENobarbitaL 30 MG TABLET PO ×2 (08:22→21:18)
[2022-11-15] MEDS: Thiamine HCL 400 MG in 0.9 % Sodium Chloride 100 ML 208 MG IV (08:23)
[2022-11-15] MEDS: ondansetron HCL 4 MG/2 ML VIAL IVPUSH (09:42)
--- NOTE | 2022-11-15 09:49 | PM.DS ---
DS: Providers Provider Date of Service: 11/15/22 Date of admission: 11/10/22 10:09 Primary care physician: Beny Kothari MD Consults: 11/10/22 10:43 Addiction Medicine Routine Consulting Provider: Addiction Covering Reason for consultation: alcohol abuse Has provider been notified: No 11/10/22 11:08 Consult to Gastroenterology Routine Consulting Provider: [facility] Reason for consultation: alcoholic pancreatitis/elevated liver enzymes DS: Diagnosis Discharge Diagnosis (1) Delirium tremens: Status: Acute (2) Acute alcoholic pancreatitis: Status: Acute (3) Acute alcoholic hepatitis: Status: Acute (4) Acute hypokalemia: Status: Acute (5) Alcoholic ketoacidosis: Status: Acute DS: Summary Hospital Course Hospital Course: Chief Complaint: Acute pancreatitis, alcohol intoxication. 37 yo M? hx of? alcohol abuse and dependence,? recent alcoholic pancreatitis at [facility],? HTN?-patient came to the hospital because he said that he was sober for more than year and then his in alex recently so since then he had lost the control or drinking-patient says that he is having on and off abdominal pain from for 5 days and also: Able to eat and have nausea and diarrhea.? He says the abdominal pain is sharp mostly on the left upper abdominal area, radiating to the back, intensity hoang 8/10, no precipitating factors except alcohol. Denies any recent travel or antibiotic use or anybody sick at home. His alcohol levels are high seems slightly drowsy, no tremors or anxiety. Denies any new complaint of chest pain or shortness of breath? or fever or chills. Denies any cough Denies any weakness or numbness. Lab imaging reviewed: WBC count improving since last reading: now 4.1 Thrombocytopenia:? Platelet level 69. alcohol levels -300 In addition patient has hypokalemia, bicarb of 19, anion gap metabolic acidosis with gap of 32 Lactic acid 2.4,?? Blood cultures sent unclear reason. Abdominal CT:1.? Mild inflammation in the region of the pancreatic head. Correlate for pancreatitis. 2.? Hepatomegaly with hepatic steatosis. Patient received Dilaudid, morphine, IV fluid, Zofran in the ED and requested admission for acute pancreatitis. Hospital course:37 year old with history alcohol dependency but has been sobber over 2 years Time Spent with Patient Time attestation: Total time managing care of this patient today ____ minutes. Discharge coordination time: Greater than 30 minutes Quality: Safe Use of Opioids Does Pt have an Active Cancer Diagnosis on the Problem List?: No Quality: Stroke Does the patient have a stroke diagnosis?: No Physical Exam Vital Signs: Vital Signs: Last Vital Signs Temp 98.0 F 11/15/22 07:51 Pulse 71 11/15/22 08:12 Resp 20 11/15/22 07:51 BP 149/87 H 11/15/22 08:12 Pulse Ox 98 11/15/22 08:12 O2 Del Method Room Air 11/15/22 07:51 BMI result Body Mass Index 29.6 DS: Data Data Completed and Pending Labs on day of discharge: Preliminary micro results at discharge 11/10/22 08:06 Blood Culture - Preliminary Blood - Venous No growth after 48 hours. Discharge Plan Discharge Anticipated Discharge Date/Time: 11/15/22 09:52 Patient Disposition: Home, Self-Care Discharge Diagnosis: alcohol withdrawal, alcoholic pancreatitis, alcoholic ketoacidosis. Referrals: Beny Kothari MD [Primary Care Provider] - 1 Week Discharge Medications: Continued buspirone 5 mg tablet 5 mg PO BID clonidine HCl 0.1 mg tablet 0.1 mg PO BEDTIME PRN (Reason: Insomnia) sertraline 100 mg tablet 200 mg PO DAILY Discharge Orders: Discharge Order (Routine); Ordered 11/15/22 Ordered By: Joseph Yan Diet: Advance to usual diet Activity on Discharge: As tolerated Stand Alone Forms: Patient Portal Discharge page Care Plan Goals: Abstinence from alcohol. Health Concerns: Chronic alcoholism Plan of Treatment: avoid alcohol at all costs, use the resources given to you follow up with clinic to restarted on Vivitrol Assessment: as above
--- NOTE | 2022-11-15 11:01 | HO.PM.IMPN ---
Subjective Subjective Date of Service: 11/15/22 Interval History: f/u on alcohol withdrawal that was managed in icu interval history: no sings of withdrwal, reportedly nearly passed out after walking, BP ok, HR ok Physical Exam Vital Signs: Vital Signs: Last Vital Signs Temp 98.0 F 11/15/22 07:51 Pulse 71 11/15/22 08:12 Resp 20 11/15/22 07:51 BP 149/87 H 11/15/22 08:12 Pulse Ox 98 11/15/22 08:12 O2 Del Method Room Air 11/15/22 07:51 BMI result Body Mass Index 29.6 Const: Other: General: AO X 3, no acute distress Resp: CTA bilateral CVS: S1,S2,RRR GI: +BS, NT, no distention Skin: No rash Neuro: motor grossly intact Psych: appropriate affect Objective Data Active Medications Folic Acid (Folic Acid 1 Mg Tablet) 2 mg PO DAILY [facility] Last Admin: 11/15/22 08:22 Dose: 2 mg Documented By: VIPIN Heparin Sodium (Porcine) (Heparin Sodium,Porcine 5,000 Unit/Ml Vial) 5,000 unit SUBCUT Q8H [facility] Last Admin: 11/15/22 08:22 Dose: 5,000 unit Documented By: VIPIN Thiamine HCl 400 mg/ Sodium (Chloride) 104 mls @ 208 mls/hr IV DAILY [facility] Last Infusion: 11/15/22 08:58 Dose: 0 mls/hr Documented By: VIPIN Ibuprofen (Ibuprofen 600 Mg Tablet) 600 mg PO Q8H PRN PRN Reason: Pain, Mild (Pain Scale 1-3) Melatonin (Melatonin 3 Mg Tablet) 6 mg PO BEDTIME PRN PRN Reason: Insomnia Last Admin: 11/15/22 01:49 Dose: 6 mg Documented By: NOEL Ondansetron HCl (Ondansetron Hcl 4 Mg/2 Ml Vial) 4 mg IVPUSH Q4H PRN PRN Reason: Nauseated Last Admin: 11/15/22 09:42 Dose: 4 mg Documented By: VIPIN Pharmacy Consult (Consult Rx Perform Med Rec) 1 each MISCELLANE ONCE PRN PRN Reason: Consult order Pharmacy Consult (Consult Rx Etoh Phenob Im/Po) 1 each MISCELLANE ONCE PRN; Protocol PRN Reason: Consult order Phenobarbital (Phenobarbital 30 Mg Tablet) 30 mg PO BID [facility]; Protocol Stop: 11/16/22 09:01 Last Admin: 11/15/22 08:22 Dose: 30 mg Documented By: VIPIN Phenobarbital (Phenobarbital 30 Mg Tablet) 30 mg PO DAILY [facility]; Protocol Stop: 11/18/22 09:01 Sodium Chloride (0.9 % Sodium Chloride Flush 3 Ml Syringe) 3 ml IVFLUSH QSHIFT [facility] Last Admin: 11/15/22 08:23 Dose: 3 ml Documented By: VIPIN Thiamine HCl (Thiamine Hcl 100 Mg Tablet) 300 mg PO DAILY [facility] Last Admin: 11/15/22 08:21 Dose: 300 mg Documented By: VIPIN Labs 11/14/22 06:26 11/14/22 06:26 Microbiology Microbiology Results: Microbiology 11/10/22 08:06 Blood Culture - Final Blood - Venous No growth after 5 days. 11/10/22 07:43 Blood Culture - Final Blood - Venous No growth after 5 days. Assessment and Plan (1) Delirium tremens: Status: Acute (2) Acute alcoholic pancreatitis: Status: Acute (3) Acute alcoholic hepatitis: Status: Acute (4) Acute hypokalemia: Status: Acute (5) Alcoholic ketoacidosis: Status: Acute Plan 37 yo M? hx of? alcohol abuse and dependence,? recent alcoholic pancreatitis at [facility],? HTN-came to the hospital on 11/10 because of alcohol intoxication, pancreatitis acute and 11/12 was transfer to ICU d/t escalating alcohol withdrawal and Alcoholic pancreatitis, clinically resolved and tolerating regular diet. DTs, treated in ICU x 1 day, med managment include ativan and now Phenobarb, Thiamine and folate supplement, addiction team following him and has outpatient resources set up Elevated LFTS-s/t alcohol use, negative hep a, b (reactiv BS antibody), c acute lactic acidosis, Not due sepsis Active smoker: advise to stop, NRT Hypokalemia:? correct, now normal DVT prophylaxis:? Will avoid chemoprophylaxis for now because platelets are only 69.? SCD. Need for inpt: ongong management for alcohol withdrawal, pancreatitis Time Spent With Patient Time: Total time managing care of this patient today ____ minutes. Quality Stroke Does the patient have a stroke diagnosis?: No VTE Prior VTE?: No VTE Risk Level:: Medical - moderate - high VTE Device Contraindication: N/A - Device Ordered VTE Drug Contraindication: N/A - Med Ordered
--- NOTE | 2022-11-15 14:42 | MHC.CM.PN ---
EMR reviewed and per MD rounds, pt is not medically cleared for D/C due to alcohol withdrawal, and pancreatitis. CM will continue to follow.
[2022-11-16 03:24] VITALS: BP 135/89; PULSE 70; RESP 18; TEMP 36.9; O2SAT 98
[2022-11-16 05:39] VITALS: BMI 29.6
[2022-11-16 07:30] VITALS: BP 143/95; PULSE 77; RESP 20; TEMP 36.9; O2SAT 98
[2022-11-16] MEDS: PHENobarbitaL 30 MG TABLET PO (08:30)
[2022-11-16] MEDS: 0.9 % Sodium Chloride Flush 3 ML SYRINGE IVFLUSH (08:36)
--- NOTE | 2022-11-16 09:09 | PM.DS ---
DS: Providers Provider Date of Service: 11/16/22 Date of admission: 11/10/22 10:09 Primary care physician: Beny Kothari MD Consults: 11/10/22 10:43 Addiction Medicine Routine Consulting Provider: Addiction Covering Reason for consultation: alcohol abuse Has provider been notified: No 11/10/22 11:08 Consult to Gastroenterology Routine Consulting Provider: [facility] [place] [facility]ology [facility] Reason for consultation: alcoholic pancreatitis/elevated liver enzymes DS: Diagnosis Discharge Diagnosis (1) Delirium tremens: Status: Acute (2) Acute alcoholic pancreatitis: Status: Acute (3) Acute alcoholic hepatitis: Status: Acute (4) Acute hypokalemia: Status: Acute (5) Alcoholic ketoacidosis: Status: Acute DS: Summary Hospital Course Hospital Course: Chief Complaint: Acute pancreatitis, alcohol intoxication. 37 yo M? hx of? alcohol abuse and dependence,? recent alcoholic pancreatitis at [facility],? HTN?-patient came to the hospital because he said that he was sober for more than year and then his in alex recently so since then he had lost the control or drinking-patient says that he is having on and off abdominal pain from for 5 days and also: Able to eat and have nausea and diarrhea.? He says the abdominal pain is sharp mostly on the left upper abdominal area, radiating to the back, intensity honag 8/10, no precipitating factors except alcohol. Denies any recent travel or antibiotic use or anybody sick at home. His alcohol levels are high seems slightly drowsy, no tremors or anxiety. Denies any new complaint of chest pain or shortness of breath? or fever or chills. Denies any cough Denies any weakness or numbness. Lab imaging reviewed: WBC count improving since last reading: now 4.1 Thrombocytopenia:? Platelet level 69. alcohol levels -300 In addition patient has hypokalemia, bicarb of 19, anion gap metabolic acidosis with gap of 32 Lactic acid 2.4,?? Blood cultures sent unclear reason. Abdominal CT:1.? Mild inflammation in the region of the pancreatic head. Correlate for pancreatitis. 2.? Hepatomegaly with hepatic steatosis. Patient received Dilaudid, morphine, IV fluid, Zofran in the ED and requested admission for acute pancreatitis. Hospital course:37 year old with history alcohol dependency but has been sobber over 2 years and now has relapsed and presented with abdominal pain, alcohol intoxication and found to have acute pancreatitis, while in hospital went into full blown alcohol withdrawal, DTs and was transfer to ICU fo closer monitoring and treatment with phenobarbital with good effect. Overall has signficnatly improveed. Acute pancreatitis has resolved and presently without sings or symptoms of alcoholwithdrawal. Addiction team has been working with him and has given him resources. He actually has a meeting with his advocate today, over goal is to be back on Naltrexone which he had success with in the past. Final diagnoses: Acute alcoholic pancreatitis Alcohol withdrawal Delirium tremens Hypokalemia Time Spent with Patient Time attestation: Total time managing care of this patient today ____ minutes. Discharge coordination time: Greater than 30 minutes Quality: Safe Use of Opioids Does Pt have an Active Cancer Diagnosis on the Problem List?: No Quality: Stroke Does the patient have a stroke diagnosis?: No Physical Exam Vital Signs: Vital Signs: Last Vital Signs Temp 98.4 F 11/16/22 07:30 Pulse 77 11/16/22 07:30 Resp 20 11/16/22 07:30 BP 143/95 H 11/16/22 07:30 Pulse Ox 98 11/16/22 07:30 O2 Del Method Room Air 11/16/22 07:30 BMI result Body Mass Index 29.6 DS: Data Data Completed and Pending Labs on day of discharge: Laboratory Results - last 24 hr 11/15/22 11/15/22 15:21 15:35 WBC 5.4 RBC 4.19 L Hgb 13.6 L Hct 39.9 L MCV 95.2 MCH 32.5 MCHC 34.1 RDW 17.2 H Plt Count 166 MPV 10.3 Absolute Nucleated RBC 0.020 H Nucleated RBC % (auto) 0.4 H Sodium 139 Potassium 4.8 D Chloride 104 Carbon Dioxide 23 Anion Gap 17 BUN 6 L Creatinine 0.62 Estim Creat Clear Calc 166.6 Estimated GFR > 60 Random Glucose 164 H Calcium 10.1 D Total Bilirubin 1.0 Direct Bilirubin 0.2 AST 199 H ALT 235 H Alkaline Phosphatase 113 Total Protein 6.9 Albumin 3.8 Discharge Plan Discharge Anticipated Discharge Date/Time: 11/16/22 09:05 Patient Disposition: Home, Self-Care Discharge Diagnosis: alcohol withdrawal, alcoholic pancreatitis, alcoholic ketoacidosis. Referrals: Beny Kothari MD [Primary Care Provider] - 1 Week Discharge Medications: Continued buspirone 5 mg tablet 5 mg PO BID clonidine HCl 0.1 mg tablet 0.1 mg PO BEDTIME PRN (Reason: Insomnia) sertraline 100 mg tablet 200 mg PO DAILY Discharge Orders: Discharge Order (Routine); Ordered 11/16/22 Ordered By: Joseph Yan Diet: Advance to usual diet Activity on Discharge: As tolerated Stand Alone Forms: Patient Portal Discharge page Care Plan Goals: Abstinence from alcohol. Health Concerns: Chronic alcoholism Plan of Treatment: avoid alcohol at all costs, use the resources given to you follow up with clinic to restarted on Vivitrol Assessment: as above
--- NOTE | 2022-11-16 09:11 | MHC.CM.PN ---
Patient has been medically cleared for dc to home today, self care.
== END 2022-11-16 09:51 | disposition home or self-care (01) | DRG 282 ==
LOC: HO.ED 08:08 → HO.EDOVER 10:16 → HO.IMC 12:36 → HO.ICU 11-12 05:12 → HO.IMC 11-13 12:34
PROVIDERS: Emergency Medicine; Hospitalist; Physician Assistant; Admitting Provider Internal Medicine; Emergency Provider Emergency Medicine Emergency Medical Services; PCP Internal Medicine; Responsible Provider Internal Medicine Pulmonary Disease; Visit Provider Internal Medicine
DX: K85.20 Alcohol induced acute pancreatitis without necrosis or infection (principal); F10.231 Alcohol dependence with withdrawal delirium; E87.29 Other acidosis; E87.6 Hypokalemia; K70.10 Alcoholic hepatitis without ascites; F10.229 Alcohol dependence with intoxication, unspecified; Y90.8 Blood alcohol level of 240 mg/100 ml or more; F17.210 Nicotine dependence, cigarettes, uncomplicated; Z71.6 Tobacco abuse counseling; Z79.899 Other long term (current) drug therapy
CPT/HCPCS: 36415; 74177; 80048; 80053; 80076; 80307; 81001; 82040; 82248; 82803; 83605; 83615; 83690; 83735; 84100; 85025; 85027; 85610; 85730; 87040; 97162; 99285; C1758; J1170; J1200; J1643; J2060; J2270; J2405; J2560; J3411; J3475; Q9967

== ENCOUNTER 2022-12-20 02:40 | Inpatient (IN) | payer OTHER, SELFPAY ==
--- NOTE | 2022-12-20 | ECG_ITS ---
Test Reason : MEDICAL CLARANCE Blood Pressure : / mmHG Vent. Rate : 079 BPM Atrial Rate : 079 BPM P-R Int : 150 ms QRS Dur : 094 ms QT Int : 426 ms P-R-T Axes : 064 268 039 degrees QTc Int : 488 ms Normal sinus rhythm Right superior axis deviation T wave abnormality, consider anterior ischemia Prolonged QT Abnormal ECG When compared with ECG of 09-OCT-2018 15:02, Incomplete right bundle branch block is no longer Present Referred By: Juan Carlos Nolasco Electronically Signed By:Tha Loving
[2022-12-20 02:45] VITALS: BP 121/81; PULSE 98; RESP 17; TEMP 36.6; O2SAT 95; BMI 28.3
--- NOTE | 2022-12-20 03:17 | ED.PSYCH ---
HPI - Psych General Chief Complaint: Psychiatric Symptoms Stated Complaint: Crisis Time Seen by Provider: 12/20/22 02:44 Source: patient Mode of arrival: ambulatory Limitations: no limitations History of Present Illness HPI Narrative: ETOH use relapse 2 months ago here wtih c/o depression and vague SI. He called 911 for help. He has no medical complaints he did fall and scrape knees the other day but no head strike the knees have scabbed over. MD complaint: feels depressed Onset (ago): week(s) Duration: changing over time History of same: Yes Relieving factors: none Exacerbating factors: alcohol Context: recent alcohol abuse Associated psychiatric symptoms: depression and suicidal ideation Associated symptoms: denies other symptoms Treatments prior to arrival: none If self harm: admits thoughts of self harm Related Data Home Medications Medication Instructions Recorded Confirmed buspirone 5 mg tablet 5 mg PO BID 12/20/22 12/20/22 clonidine HCl 0.1 mg tablet 0.1 mg PO BEDTIME PRN Anxiety 12/20/22 12/20/22 gabapentin 400 mg capsule 400 mg PO TID 12/20/22 12/20/22 sertraline 100 mg tablet 200 mg PO DAILY 12/20/22 12/20/22 trazodone 100 mg tablet 100 mg PO BEDTIME 12/20/22 12/20/22 Allergies Allergy/AdvReac Type Severity Reaction Status Date / Time fluoxetine [From PROZAC] Allergy Unknown UNKNOWN Verified 11/10/22 06:03 Penicillins [PENICILLINS] Allergy Unknown UNKNOWN Verified 11/10/22 06:03 Review of Systems Review of Systems: Constitutional : No Fever, No Chills ENT/Mouth : No Ear Pain, No Nasal Congestion, No sore throat Eyes: No Eye Pain, No Swelling, No Redness Cardiovascular : No Chest Pain, No SOB Respiratory : No Cough, No Sputum, No Dyspnea Gastrointestinal : No Nausea, No Vomiting, No Diarrhea, No Hematochezia, No Melena Genitourinary : No Dysuria, No Urinary Frequency, No Hematuria Musculoskeletal : No Myalgias Skin : No Skin Lesions, No rash Neuro : No Weakness, No Numbness, No Paresthesias, No Dizziness, No Headache Psych : positive Anxiety, positive Depression, positive SI no HI Heme/Lymph: No Lymphadenopathy Endocrine : No Polyuria, No Polydipsia All other systems reviewed and are negative [facility], [facility] Past Medical History Attestation statement: The following information was validated with the patient. Social History Social History Household Members: Spouse Housing: Apartment Do you presently have visiting nurse or other home services: No Alcohol intake: current Alcohol intake frequency: 3 or more drinks per day Alcohol type: hard liquor Patient Tobacco Use Status: Current everyday Tobacco user Tobacco use type: Cigarette Cigarettes Per Day: 4 Years Smoked: 16 Advance Directives: No Advance Directives Information Provided: No Advance Directives Date on File: 11/10/22 service: No Physical Exam Vital Signs: Vital Signs: Last Vital Signs Temp 98 F 12/20/22 02:45 Pulse 98 12/20/22 02:45 Resp 17 12/20/22 02:45 BP 121/81 12/20/22 02:45 Pulse Ox 95 12/20/22 02:45 O2 Del Method Room Air 12/20/22 02:45 BMI result Body Mass Index 28.3 Appearance: Alert. Oriented X3. No acute distress. Eyes: Pupils equal, round and reactive to light. ENT: Pharynx normal. Neck: Normal inspection. Neck supple. CVS: Normal heart rate and rhythm. Pulses normal. Respiratory: No respiratory distress. Breath sounds normal. Abdomen: Soft and nontender. Skin: Skin warm and dry. Normal skin color. Normal skin turgor. Extremities: No lower extremity edema. No calf ttp both knees scabs noted full ROM of knees Neuro: Oriented X 3. No motor deficit. No sensory deficit. CN 2-12 intact Course Course Course Narrative: Physician observation started at 412am Patient placed in physician observation because the patient needed more time for CARE team to assess the need for psych admission. At the time observation was started the patient's vitals were stable, patient is alert and oriented but slightly anxious, Neuro: nonfocal, CV RRR, Lungs clear Medications Administered Discontinued Medications Generic Name Dose Route Start Last Admin Trade Name Freq PRN Reason Stop Dose Admin Thiamine HCl 100 mg 12/20/22 03:24 12/20/22 04:06 Thiamine Hcl 100 Mg Tablet PO 12/20/22 03:25 100 mg ONCE ONE Administration Medical Decision Making Medical Decision Making MDM Narrative: 37 yo male with hx of ETOH abuse here with c/o relapse x 2 months now with depression and vague SI no plan at this time will obtain basic labs PRN ativan if he has withdrawal symptoms and CARE team consult. Differential Diagnosis Differential Diagnoses: The differential diagnosis associated with the presentation includes depression, ETOH abuse Admission/Observation Consideration of admission/observation: Escalation of care including admission/observation considered observation for CARE team Lab Data MDM Lab Attestation statement: I reviewed the patient's lab results. 12/20/22 03:33 12/20/22 03:34 Labs: Lab Results 12/20/22 12/20/22 12/20/22 Range/Units 03:32 03:32 03:32 WBC (4.8-10.8) X10*3/uL RBC (4.60-5.80) X10*6/uL Hgb (14.0-18.0) g/dl Hct (42.0-52.0) % MCV (80.0-98.0) fL MCH (27.0-33.0) pg MCHC (31.0-36.0) g/dl RDW (11.0-16.0) % Plt Count (160-400) X10*3/uL MPV (9.4-12.4) fL Immature Gran % (Auto) (0.0-0.4) % Neut % (Auto) (45-73) % Lymph % (Auto) (20-40) % [place] % (Auto) (2-11) % Eos % (Auto) (0-4) % Baso % (Auto) (0-2) % Lymph # (Auto) (1.2-4.9) X10*3/uL [place] # (Auto) (0.1-1.2) X10*3/uL Eos # (Auto) (0.0-0.4) X10*3/uL Baso # (Auto) (0.0-0.2) X10*3/uL Abs Immat Gran (auto) (0.00-0.03) X10*3/uL Absolute Neuts (auto) (2.0-8.3) x10*3/uL Absolute Nucleated RBC (0.0-0.012) X10*3/uL Nucleated RBC % (auto) (0.0-0.2) /100WBC Sodium (135-145) mmol/L Potassium (3.3-5.1) mmol/L Chloride (96-108) mmol/L Carbon Dioxide (22-29) mmol/L Anion Gap (12-20) BUN (9-16) mg/dL Creatinine (0.5-1.4) mg/dL Estim Creat Clear Calc Estimated GFR Random Glucose (60-115) mg/dL Calcium (8.4-10.2) mg/dL Magnesium (1.6-2.6) mg/dL Total Bilirubin (0.0-1.0) mg/dL AST (5-37) U/L ALT (0-40) U/L Alkaline Phosphatase (39-117) U/L Total Protein (6.5-8.0) g/dL Albumin (3.5-5.0) g/dL Urine Color Dark Yellow Urine Appearance Cloudy Urine pH 5.5 (5.0-9.0) Ur Specific [place] 1.020 (1.005-1.025) Urine Protein 100 (2+) H (Neg-Trace) mg/dL Urine Glucose (UA) Negative (Negative) mg/dL Urine Ketones 15 (Negative) mg/dL Urine Blood Negative (Negative) Urine Nitrite Negative (Negative) Ur Leukocyte Esterase Negative (Negative) Urine RBC 0-2 (0-2) /HPF Urine WBC 0-5 (0-5) /HPF Ur Squamous Epith Cells 0-2 (0-2) /HPF Urine Bacteria None Seen (None Seen) Hyaline Casts 0-2 (0-2) /LPF Salicylates (15-30) mg/dL Urine Opiates Screen Not Detected (Not Detect) Urine Fentanyl Screen Not Detected (Not Detect) Acetaminophen (<30) mcg/mL Ur Barbiturates Screen POSITIVE H (Not Detect) Ur Phencyclidine Scrn Not Detected (Not Detect) Ur Amphetamines Screen Not Detected (Not Detect) U Benzodiazepines Scrn Not Detected (Not Detect) Urine Cocaine Screen Not Detected (Not Detect) U Marijuana (THC) Screen POSITIVE H (Not Detect) Ethyl Alcohol mg/dL COVID-19 (KIRSTIE) Negative (Negative) COVID-19 Clin Com See Note 12/20/22 12/20/22 12/20/22 Range/Units 03:33 03:33 03:33 WBC 6.2 (4.8-10.8) X10*3/uL RBC 4.77 (4.60-5.80) X10*6/uL Hgb 15.5 (14.0-18.0) g/dl Hct 44.4 (42.0-52.0) % MCV 93.1 (80.0-98.0) fL MCH 32.5 (27.0-33.0) pg MCHC 34.9 (31.0-36.0) g/dl RDW 14.1 (11.0-16.0) % Plt Count 413 H D (160-400) X10*3/uL MPV 8.3 L (9.4-12.4) fL Immature Gran % (Auto) 0.5 H (0.0-0.4) % Neut % (Auto) 40.2 L (45-73) % Lymph % (Auto) 49.4 H (20-40) % [place] % (Auto) 7.6 (2-11) % Eos % (Auto) 0.8 (0-4) % Baso % (Auto) 1.5 (0-2) % Lymph # (Auto) 3.0 (1.2-4.9) X10*3/uL [place] # (Auto) 0.5 (0.1-1.2) X10*3/uL Eos # (Auto) 0.1 (0.0-0.4) X10*3/uL Baso # (Auto) 0.1 (0.0-0.2) X10*3/uL Abs Immat Gran (auto) 0.03 (0.00-0.03) X10*3/uL Absolute Neuts (auto) 2.5 (2.0-8.3) x10*3/uL Absolute Nucleated RBC 0.000 (0.0-0.012) X10*3/uL Nucleated RBC % (auto) 0.0 (0.0-0.2) /100WBC Sodium (135-145) mmol/L Potassium (3.3-5.1) mmol/L Chloride (96-108) mmol/L Carbon Dioxide (22-29) mmol/L Anion Gap (12-20) BUN (9-16) mg/dL Creatinine (0.5-1.4) mg/dL Estim Creat Clear Calc Estimated GFR Random Glucose (60-115) mg/dL Calcium (8.4-10.2) mg/dL Magnesium 2.2 (1.6-2.6) mg/dL Total Bilirubin (0.0-1.0) mg/dL AST (5-37) U/L ALT (0-40) U/L Alkaline Phosphatase (39-117) U/L Total Protein (6.5-8.0) g/dL Albumin (3.5-5.0) g/dL Urine Color Urine Appearance Urine pH (5.0-9.0) Ur Specific [place] (1.005-1.025) Urine Protein (Neg-Trace) mg/dL Urine Glucose (UA) (Negative) mg/dL Urine Ketones (Negative) mg/dL Urine Blood (Negative) Urine Nitrite (Negative) Ur Leukocyte Esterase (Negative) Urine RBC (0-2) /HPF Urine WBC (0-5) /HPF Ur Squamous Epith Cells (0-2) /HPF Urine Bacteria (None Seen) Hyaline Casts (0-2) /LPF Salicylates < 5.0 L (15-30) mg/dL Urine Opiates Screen (Not Detect) Urine Fentanyl Screen (Not Detect) Acetaminophen < 17 (<30) mcg/mL Ur Barbiturates Screen (Not Detect) Ur Phencyclidine Scrn (Not Detect) Ur Amphetamines Screen (Not Detect) U Benzodiazepines Scrn (Not Detect) Urine Cocaine Screen (Not Detect) U Marijuana (THC) Screen (Not Detect) Ethyl Alcohol mg/dL COVID-19 (KIRSTIE) (Negative) COVID-19 Clin Com 12/20/22 Range/Units 03:34 WBC (4.8-10.8) X10*3/uL RBC (4.60-5.80) X10*6/uL Hgb (14.0-18.0) g/dl Hct (42.0-52.0) % MCV (80.0-98.0) fL MCH (27.0-33.0) pg MCHC (31.0-36.0) g/dl RDW (11.0-16.0) % Plt Count (160-400) X10*3/uL MPV (9.4-12.4) fL Immature Gran % (Auto) (0.0-0.4) % Neut % (Auto) (45-73) % Lymph % (Auto) (20-40) % [place] % (Auto) (2-11) % Eos % (Auto) (0-4) % Baso % (Auto) (0-2) % Lymph # (Auto) (1.2-4.9) X10*3/uL [place] # (Auto) (0.1-1.2) X10*3/uL Eos # (Auto) (0.0-0.4) X10*3/uL Baso # (Auto) (0.0-0.2) X10*3/uL Abs Immat Gran (auto) (0.00-0.03) X10*3/uL Absolute Neuts (auto) (2.0-8.3) x10*3/uL Absolute Nucleated RBC (0.0-0.012) X10*3/uL Nucleated RBC % (auto) (0.0-0.2) /100WBC Sodium 147 H (135-145) mmol/L Potassium 3.3 D (3.3-5.1) mmol/L Chloride 101 (96-108) mmol/L Carbon Dioxide 26 (22-29) mmol/L Anion Gap 23 H (12-20) BUN 8 L (9-16) mg/dL Creatinine 0.81 (0.5-1.4) mg/dL Estim Creat Clear Calc 129.2 Estimated GFR > 60 Random Glucose 146 H (60-115) mg/dL Calcium 9.2 D (8.4-10.2) mg/dL Magnesium (1.6-2.6) mg/dL Total Bilirubin 0.4 (0.0-1.0) mg/dL AST 93 H (5-37) U/L ALT 111 H (0-40) U/L Alkaline Phosphatase 106 (39-117) U/L Total Protein 7.3 (6.5-8.0) g/dL Albumin 4.5 (3.5-5.0) g/dL Urine Color Urine Appearance Urine pH (5.0-9.0) Ur Specific [place] (1.005-1.025) Urine Protein (Neg-Trace) mg/dL Urine Glucose (UA) (Negative) mg/dL Urine Ketones (Negative) mg/dL Urine Blood (Negative) Urine Nitrite (Negative) Ur Leukocyte Esterase (Negative) Urine RBC (0-2) /HPF Urine WBC (0-5) /HPF Ur Squamous Epith Cells (0-2) /HPF Urine Bacteria (None Seen) Hyaline Casts (0-2) /LPF Salicylates (15-30) mg/dL Urine Opiates Screen (Not Detect) Urine Fentanyl Screen (Not Detect) Acetaminophen (<30) mcg/mL Ur Barbiturates Screen (Not Detect) Ur Phencyclidine Scrn (Not Detect) Ur Amphetamines Screen (Not Detect) U Benzodiazepines Scrn (Not Detect) Urine Cocaine Screen (Not Detect) U Marijuana (THC) Screen (Not Detect) Ethyl Alcohol 414 H* mg/dL COVID-19 (KIRSTIE) (Negative) COVID-19 Clin Com External Record Review External record reviewed: Inpatient record Social Determinants Patient?s care significantly limited by Social Determinants of Health including: Alcoholism and drug addiction in family Discharge Plan Discharge Clinical Impression: Alcohol abuse Patient Disposition: Still a Patient Prescriptions: No Action buspirone 5 mg tablet 5 mg PO BID clonidine HCl 0.1 mg tablet 0.1 mg PO BEDTIME PRN (Reason: Anxiety) gabapentin 400 mg capsule 400 mg PO TID sertraline 100 mg tablet 200 mg PO DAILY trazodone 100 mg tablet 100 mg PO BEDTIME Interventions: [place]-Suicide Risk Severity Scale Last Done: 12/20/22 03:55
[2022-12-20 03:40] LABS: MANUAL DIFF FLAG NO
[2022-12-20 03:41] LABS: Basophils Absolute Auto 0.1 X10*3/uL (0.0-0.2); Basophils Percent Auto 1.5 % (0-2); Eosinophils Absolute Auto 0.1 X10*3/uL (0.0-0.4); Eosinophils Percent Auto 0.8 % (0-4); Hematocrit 44.4 % (42.0-52.0); Hemoglobin 15.5 g/dl (14.0-18.0); Imm Gran Abs Auto 0.03 X10*3/uL (0.00-0.03); Imm Gran Pct Auto 0.5 % (0.0-0.4); Lymphocytes Percent Auto 49.4 % (20-40); Mean Corpuscular HGB Conc 34.9 g/dl (31.0-36.0); Mean Corpuscular Hemoglobin 32.5 pg (27.0-33.0); Mean Corpuscular Volume 93.1 fL (80.0-98.0); Mean Platelet Volume 8.3 fL (9.4-12.4); Monocytes Absolute Auto 0.5 X10*3/uL (0.1-1.2); Monocytes Percent Auto 7.6 % (2-11); Neutrophils Absolute Auto 2.5 x10*3/uL (2.0-8.3); Neutrophils Percent Auto 40.2 % (45-73); Platelet Count 413 X10*3/uL (160-400); Red Blood Count 4.77 X10*6/uL (4.60-5.80); Red Cell Distribution Width 14.1 % (11.0-16.0); White Blood Count 6.2 X10*3/uL (4.8-10.8)
[2022-12-20 03:44] LABS: Appearance Urine Cloudy; Color Urine Dark Yellow; Glucose Urine UA Negative (Negative); Leukocyte Esterase Urine Negative (Negative); Nitrite Urine Negative (Negative); PH 5.5 (5.0-9.0); UMIC TRIGGER UA YES; Urine Blood Negative (Negative); Urine Ketones 15 mg/dL (Negative); Urine Protein 100 (2+) mg/dL (Neg-Trace)
[2022-12-20 03:53] LABS: COVID-19 Test Negative (Negative); IDNOW Serial# BCCEAD1C
[2022-12-20 03:57] LABS: Bacteria Urine None Seen (None Seen); Hyaline Casts Urine 0-2 /LPF (0-2); RBC Urine 0-2 /HPF (0-2); Squamous Epithelial Cell Urine 0-2 /HPF (0-2); WBC Urine 0-5 /HPF (0-5)
[2022-12-20 03:59] LABS: Amphetamine Screen Urine Not Detected (Not Detect); Barbiturates, Urine POSITIVE (Not Detect); Benzodiazepines Screen Urine Not Detected (Not Detect); Cannabinoid Screen Urine POSITIVE (Not Detect); Cocaine Screen Urine Not Detected (Not Detect); Fentanyl, urine Not Detected (Not Detect); Opiate Screen Urine Not Detected (Not Detect); Phencyclidine Screen Urine Not Detected (Not Detect)
[2022-12-20 03:59] LABS: Magnesium 2.2 mg/dL (1.6-2.6)
[2022-12-20 04:04] LABS: Alanine Aminotransferase 111 U/L (0-40); Albumin Level 4.5 g/dL (3.5-5.0); Alkaline Phosphatase 106 U/L (39-117); Anion Gap 23 (12-20); Aspartate Amino Transferase 93 U/L (5-37); Bilirubin Total 0.4 mg/dL (0.0-1.0); Blood Urea Nitrogen 8 mg/dL (9-16); Calcium 9.2 mg/dL (8.4-10.2); Carbon Dioxide 26 mmol/L (22-29); Chloride 101 mmol/L (96-108); Creatinine Clr Calc Pharmacy 129.2; Estimated Glomerular Filt Rate > 60; Ethanol 414 mg/dL; Glucose Random 146 mg/dL (60-115); Potassium 3.3 mmol/L (3.3-5.1); Sodium 147 mmol/L (135-145); Total Protein 7.3 g/dL (6.5-8.0)
[2022-12-20 04:04] LABS: Acetaminophen LAB < 17 mcg/mL (<30); Salicylate < 5.0 mg/dL (15-30)
[2022-12-20] MEDS: Thiamine HCL 100 MG TABLET PO (04:06)
--- NOTE | 2022-12-20 06:13 | PC.NURSE ---
Patient has been sleeping since he came, no distress observed/reported, behavior non concerning, med rec completed/pending provider's approval, care consult ordered for suicidality, pending evaluation, patient will be clinically sober at 1530, VSS, labs completed/resulted, PRN Ativan available incase patient goes into ETOH withdrawal, currently asymptomatic of withdrawal, will continue to monitor.
[2022-12-20 06:45] VITALS: RESP 14
--- NOTE | 2022-12-20 08:39 | PC.NURSE ---
assumed care of pt at 0700, resting quietly, a&ox4, pt pending CARE team eval at 1530 when sober.
[2022-12-20] MEDS: Ondansetron ODT 4 MG TAB.RAPDIS TRANSLINGU (11:14)
[2022-12-20] MEDS: LORazepam 1 MG TABLET 2 MG PO ×4 (11:54→23:43)
--- NOTE | 2022-12-20 13:04 | PC.NURSE ---
pt up eating lunch at this time, reports decreased withdrawal symptoms at this time. No apparent distress, respiration even and unlabored, skin pwd
[2022-12-20 13:42] VITALS: BP 123/74; PULSE 118; RESP 16; TEMP 32.2; O2SAT 96
--- NOTE | 2022-12-20 15:03 | PC.NURSE ---
temp actually 98.0, inaccurately recorded
--- NOTE | 2022-12-20 16:07 | PC.NURSE ---
Patient spoke to his brother on the phone. Patient is calm and cooperative at this time. No s/s of distress noted.
--- NOTE | 2022-12-20 16:44 | MHC.CARE ---
patient is voluntary for inpatient LOC. Pending placement.
[2022-12-20 16:50] VITALS: BP 154/86; PULSE 106; RESP 20; TEMP 36.4; O2SAT 99
[2022-12-20 19:50] VITALS: BP 146/90; PULSE 91; RESP 20; TEMP 36.4; O2SAT 96
[2022-12-20] MEDS: traZODone HCL 100 MG TABLET PO (22:10)
[2022-12-20 23:34] VITALS: BP 114/79; PULSE 110; TEMP 36.4; O2SAT 95
[2022-12-20 23:35] VITALS: BMI 27.6
[2022-12-21] MEDS: hydrOXYzine HCL 25 MG TABLET PO ×2 (00:37→20:32)
[2022-12-21] MEDS: cloNIDine HCL 0.1 MG TABLET PO ×2 (00:37→20:32)
--- NOTE | 2022-12-21 03:58 | PC.ADMIT ---
Addendum entered by Kanika Diamond RN 12/23/22 00:25: date should reflect 12/14/22 and 12/16 not 9. Original Note: this is one of several inpatient admissions for this 37 year old male. legal: CV, dx: depressive d/o unspecified, alcohol use d/o severe. patient was a referral from the CARE team vis the ER. nurse to nurse, collateral information obtained prior to admission. see CARE team assessment. patient reports that he was recently discharge from [facility] for treatment of c diff and went through a detox process in which phenobarbital was used for w/d. From [facility] he was sent to [facility] and discharge on 01/14/23. he reports that he started to engage in the use of alcohol again on Tuesday 01/16. reports that he drinks vodka to the point of intoxication, reporting falls when intoxicated. he reports his last drink was prior to the arrival to the ER 12/20. reports that he has experienced detox delirium in the past as well as seizures from alcohol w/d. reports 2 years of sobriety prior to relapse. identifies trigger to relapse was the loss of a child in early with his girlfriend, Krystyna. reports after losing the baby both began drinking again. reports that his girlfriend was sectioned 35 by her mother/courts. exhibiting active w/d s/s. denies SI. ''it was because I was drunk'' does endorse punching torres prior to admission to the ER. reports marijuana use as ''sporadic'' reporting having smoked after discharge from [facility] ''to help with anxiety'' ''it did not help'' GARCIAS was + for barbiturates and questioning if this was from phenobarbital. self identifies as being a depressed and anxious person. cooperative. fully oriented. treatment and safety tool initiated.
[2022-12-21 04:00] VITALS: BP 103/66; PULSE 69; RESP 16; O2SAT 97
--- NOTE | 2022-12-21 04:33 | PC.NURSE ---
0400 CIWA 4. was easily aroused and allowed for assessment and for VS to be taken. + effects from ativan at this time. will continue to monitor.
[2022-12-21 07:00] VITALS: BMI 27.3
[2022-12-21 08:00] VITALS: BP 121/78; PULSE 74; RESP 18; TEMP 36.4; O2SAT 97
[2022-12-21] MEDS: Gabapentin 400 MG CAPSULE PO (08:55)
[2022-12-21] MEDS: Sertraline HCL 100 MG TABLET 200 MG PO (08:55)
[2022-12-21] MEDS: LORazepam 1 MG TABLET PO ×2 (08:56→19:14)
[2022-12-21] MEDS: busPIRone HCl 5 MG TABLET PO (09:37)
[2022-12-21 09:55] LABS: Alanine Aminotransferase 90 U/L (0-40); Alkaline Phosphatase 100 U/L (39-117); Anion Gap 13 (12-20); Aspartate Amino Transferase 63 U/L (5-37); Bilirubin Total 0.8 mg/dL (0.0-1.0); Blood Urea Nitrogen 8 mg/dL (9-16); Calcium 9.6 mg/dL (8.4-10.2); Carbon Dioxide 32 mmol/L (22-29); Chloride 98 mmol/L (96-108); Cholesterol 224 mg/dL; Creatinine Clr Calc Pharmacy 134.4; Estimated Glomerular Filt Rate > 60; Glucose Fasting 123 mg/dL (60-99); HDL Cholesterol 62 mg/dL; LDL Cholesterol Calculated 131 mg/dl; Potassium 3.2 mmol/L (3.3-5.1); Sodium 140 mmol/L (135-145); Total Protein 6.5 g/dL (6.5-8.0); Triglycerides 158 mg/dL
[2022-12-21 11:24] VITALS: BP 132/72; PULSE 66; RESP 18; TEMP 36.6; O2SAT 95
[2022-12-21] MEDS: LORazepam 1 MG TABLET 2 MG PO ×3 (11:28→21:35)
--- NOTE | 2022-12-21 12:53 | HO.PSYADMNOT ---
HPI Date of Service: 12/21/22 Chief Complaint: Mood Disorder HPI Narrative: per CARE team eval, pt was BIBA from his mother's house, where he was intoxicated and making SI statements. he had also punched the wall enough to have bleeding hands. he reported stressors of being evicted from his housing, recent relapse after miscarriage of fiancee, loss of employment, strained relationship with mother. endorses insomnia, anergia, anorexia, amotivation, low mood, anxiety. on interview with MD on the unit, pt appears sweaty and endorses MANCERA, sweats, tremors, anxiety, nausea. he is concerned due to his h/o withdrawal Sz. MD discusses CIWA protocol and encourages pt to seek out RN for assessment PRN. agrees to increase gabapentin from 400 TID to 800 TID for Sz prophylaxis but also for anxiety. agrees to DC buspar as ineffective. pt would like to stay on zoloft 200, as he feels it has been enormously helpful for his social anxiety. discuss R/B of wellbutrin anti-depressant augmentation as he feels his low mood has been intractable. pt will consider. would like to return to [facility] upon discharge, where he was for quite a while until recent months. case D/W [facility]. Past Psychiatric History: hosps: 3 prior SA: denies SIB: punching torres, both while intoxicated and while sober. CARE team report also mentions h/o cutting. outpt: psych MD madie Schroeder at [facility] Medical Evaluation Reviewed: Yes PMFSH Family History: mother - alcohol. he also reports she has told him she has bipolar disorder, but he is unable to describe any events or observed behaviors supporting such a Dx Social History: grew up in [place]. HS grad. Substance History: tobacco - 1/2 ppd alcohol - large amounts of liquor, daily. relapsed 6 days ago after a detox. h/o 2 yrs sobriety. h/o detoxes and rehabs. cannabis - once in a while denies the use of cocaine, opioids, stimulants, or other substances of abuse. Trauma History: reports having seen his grandfather pass away from cancer when pt was 16 yo. Diagnostics Vital Signs (24Hr): Vital Signs - 24 hr 12/20/22 13:42 12/20/22 16:50 12/20/22 19:50 Temperature 90.0 F L 97.6 F 97.5 F Pulse Rate 118 H 106 H 91 Respiratory Rate 16 20 20 Blood Pressure 123/74 154/86 H 146/90 H Pulse Oximetry 96 99 96 Oxygen Delivery Method Room Air Room Air Room Air 12/20/22 23:34 12/21/22 04:00 12/21/22 08:00 Temperature 97.6 F 97.6 F Pulse Rate 110 H 69 74 Respiratory Rate 16 18 Blood Pressure 114/79 103/66 121/78 Pulse Oximetry 95 97 97 Oxygen Delivery Method Room Air Room Air Room Air 12/21/22 11:24 Temperature 97.8 F Pulse Rate 66 Respiratory Rate 18 Blood Pressure 132/72 Pulse Oximetry 95 Oxygen Delivery Method Room Air BMI result Body Mass Index 27.3 Labs 12/20/22 03:33 12/21/22 09:16 Labs: Laboratory Results - last 48 hr 12/20/22 12/20/22 12/20/22 03:32 03:32 03:32 WBC RBC Hgb Hct MCV MCH MCHC RDW Plt Count MPV Immature Gran % (Auto) Neut % (Auto) Lymph % (Auto) [place] % (Auto) Eos % (Auto) Baso % (Auto) Lymph # (Auto) [place] # (Auto) Eos # (Auto) Baso # (Auto) Abs Immat Gran (auto) Absolute Neuts (auto) Absolute Nucleated RBC Nucleated RBC % (auto) Sodium Potassium Chloride Carbon Dioxide Anion Gap BUN Creatinine Estim Creat Clear Calc Estimated GFR Random Glucose Fasting Glucose Calcium Magnesium Total Bilirubin AST ALT Alkaline Phosphatase Total Protein Albumin Triglycerides Cholesterol LDL Cholesterol, Calc HDL Cholesterol Urine Color Dark Yellow Urine Appearance Cloudy Urine pH 5.5 Ur Specific [place] 1.020 Urine Protein 100 (2+) H Urine Glucose (UA) Negative Urine Ketones 15 Urine Blood Negative Urine Nitrite Negative Ur Leukocyte Esterase Negative Urine RBC 0-2 Urine WBC 0-5 Ur Squamous Epith Cells 0-2 Urine Bacteria None Seen Hyaline Casts 0-2 Salicylates Urine Opiates Screen Not Detected Urine Fentanyl Screen Not Detected Acetaminophen Ur Barbiturates Screen POSITIVE H Ur Phencyclidine Scrn Not Detected Ur Amphetamines Screen Not Detected U Benzodiazepines Scrn Not Detected Urine Cocaine Screen Not Detected U Marijuana (THC) Screen POSITIVE H Ethyl Alcohol COVID-19 (KIRSTIE) Negative COVID-19 Clin Com See Note 12/20/22 12/20/22 12/20/22 03:33 03:33 03:33 WBC 6.2 RBC 4.77 Hgb 15.5 Hct 44.4 MCV 93.1 MCH 32.5 MCHC 34.9 RDW 14.1 Plt Count 413 H D MPV 8.3 L Immature Gran % (Auto) 0.5 H Neut % (Auto) 40.2 L Lymph % (Auto) 49.4 H [place] % (Auto) 7.6 Eos % (Auto) 0.8 Baso % (Auto) 1.5 Lymph # (Auto) 3.0 [place] # (Auto) 0.5 Eos # (Auto) 0.1 Baso # (Auto) 0.1 Abs Immat Gran (auto) 0.03 Absolute Neuts (auto) 2.5 Absolute Nucleated RBC 0.000 Nucleated RBC % (auto) 0.0 Sodium Potassium Chloride Carbon Dioxide Anion Gap BUN Creatinine Estim Creat Clear Calc Estimated GFR Random Glucose Fasting Glucose Calcium Magnesium 2.2 Total Bilirubin AST ALT Alkaline Phosphatase Total Protein Albumin Triglycerides Cholesterol LDL Cholesterol, Calc HDL Cholesterol Urine Color Urine Appearance Urine pH Ur Specific [place] Urine Protein Urine Glucose (UA) Urine Ketones Urine Blood Urine Nitrite Ur Leukocyte Esterase Urine RBC Urine WBC Ur Squamous Epith Cells Urine Bacteria Hyaline Casts Salicylates < 5.0 L Urine Opiates Screen Urine Fentanyl Screen Acetaminophen < 17 Ur Barbiturates Screen Ur Phencyclidine Scrn Ur Amphetamines Screen U Benzodiazepines Scrn Urine Cocaine Screen U Marijuana (THC) Screen Ethyl Alcohol COVID-19 (KIRSTIE) COVID-19 Clin Com 12/20/22 12/21/22 03:34 09:16 WBC RBC Hgb Hct MCV MCH MCHC RDW Plt Count MPV Immature Gran % (Auto) Neut % (Auto) Lymph % (Auto) [place] % (Auto) Eos % (Auto) Baso % (Auto) Lymph # (Auto) [place] # (Auto) Eos # (Auto) Baso # (Auto) Abs Immat Gran (auto) Absolute Neuts (auto) Absolute Nucleated RBC Nucleated RBC % (auto) Sodium 147 H 140 Potassium 3.3 D 3.2 L Chloride 101 98 Carbon Dioxide 26 32 H Anion Gap 23 H 13 BUN 8 L 8 L Creatinine 0.81 0.77 Estim Creat Clear Calc 129.2 134.4 Estimated GFR > 60 > 60 Random Glucose 146 H Fasting Glucose 123 H Calcium 9.2 D 9.6 Magnesium Total Bilirubin 0.4 0.8 AST 93 H 63 H ALT 111 H 90 H Alkaline Phosphatase 106 100 Total Protein 7.3 6.5 Albumin 4.5 4.0 Triglycerides 158 Cholesterol 224 LDL Cholesterol, Calc 131 HDL Cholesterol 62 Urine Color Urine Appearance Urine pH Ur Specific [place] Urine Protein Urine Glucose (UA) Urine Ketones Urine Blood Urine Nitrite Ur Leukocyte Esterase Urine RBC Urine WBC Ur Squamous Epith Cells Urine Bacteria Hyaline Casts Salicylates Urine Opiates Screen Urine Fentanyl Screen Acetaminophen Ur Barbiturates Screen Ur Phencyclidine Scrn Ur Amphetamines Screen U Benzodiazepines Scrn Urine Cocaine Screen U Marijuana (THC) Screen Ethyl Alcohol 414 H* COVID-19 (KIRSTIE) COVID-19 Clin Com Meds/Allergies Meds Home Medications Medication Instructions Recorded Confirmed Type buspirone 5 mg tablet 5 mg PO BID 12/20/22 12/20/22 History clonidine HCl 0.1 mg tablet 0.1 mg PO BEDTIME PRN Anxiety 12/20/22 12/20/22 History gabapentin 400 mg capsule 400 mg PO TID 12/20/22 12/20/22 History sertraline 100 mg tablet 200 mg PO DAILY 12/20/22 12/20/22 History trazodone 100 mg tablet 100 mg PO BEDTIME 12/20/22 12/20/22 History Allergies Allergies Allergy/AdvReac Type Severity Reaction Status Date / Time fluoxetine [From PROZAC] Allergy Unknown UNKNOWN Verified 11/10/22 06:03 Penicillins [PENICILLINS] Allergy Unknown UNKNOWN Verified 11/10/22 06:03 Mental Status Exam Mental Status Exam Narrative: adequately dressed and groomed. no PMA/PMR. cooperative with interview. speech nml rate, amount, loudness, tone, latency. thoughts linear and logical. affect constricted, normo-intense, non-labile. mood tired, scared. denoes SI/SIBI/HI/AVH/TH. Assessment & Plan Assessment & Plan (1) Alcohol use disorder, severe, dependence: Status: Acute Code(s): F10.20 - Alcohol dependence, uncomplicated (2) Depressive disorder: Status: Acute Code(s): F32.A - Depression, unspecified Plan 12/21: detox using ativan per [facility] protocol. DC buspar as ineffective. increase gabapentin from 400 TID to 800 TID for Sz prophylaxis and anxiety. continue home regimen otherwise. T/C wellbutrin augmentation strategy. utox barbiturates POS from recent detox. Patient educated on: diagnosis, medication risk/benefits, substance abuse and medical condition Reason for continued inpatient stay Substantial Risk for: harm to self, inability to function and rapid decompensation Statement Statement: I have reviewed the history and physical and performed a pertinent examination on my patient. No changes have occurred unless specified. If the History and Physical was not performed prior to admission, the Hospitalist's service will be consulted for completing the admission physical. Time Spent With Patient Time: Total time managing care of this patient today __75__ minutes.
[2022-12-21] MEDS: Gabapentin 400 MG CAPSULE 800 MG PO ×2 (15:05→21:34)
[2022-12-21 17:28] VITALS: BP 118/79; PULSE 71; RESP 18; TEMP 36.2; O2SAT 97
[2022-12-21 20:29] VITALS: BP 114/77; PULSE 101; RESP 18; TEMP 36.7; O2SAT 95
[2022-12-21] MEDS: traZODone HCL 100 MG TABLET PO (21:34)
[2022-12-21] MEDS: Magnesium Hydrox/Alum Hydrox 30 ML ORAL.SUSP PO (21:35)
[2022-12-21] MEDS: Ondansetron ODT 4 MG TAB.RAPDIS TRANSLINGU (21:47)
--- NOTE | 2022-12-22 02:26 | PC.NURSE ---
Pt sleeping peacefully, snoring, unlabored and relaxed respirations. Allowed to sleep, did not wake for CIWA.
--- NOTE | 2022-12-22 05:30 | PC.NURSE ---
CIWA not scored at 0400 as pt was sleeping very soundly, respirations easy and unlabored at this time.
[2022-12-22] MEDS: LORazepam 1 MG TABLET PO ×3 (05:56→20:30)
[2022-12-22 10:20] VITALS: BP 116/82; PULSE 93; RESP 18; TEMP 36.6; O2SAT 97
[2022-12-22] MEDS: buPROPion HCl XL 150 MG TAB.ER.24H PO (10:40)
[2022-12-22] MEDS: Gabapentin 400 MG CAPSULE 800 MG PO ×3 (10:40→22:38)
[2022-12-22] MEDS: Sertraline HCL 100 MG TABLET 200 MG PO (10:40)
--- NOTE | 2022-12-22 13:54 | HO.PSYCHPN ---
Subjective Subjective Date of Service: 12/22/22 Reason For Visit: Mood Disorder Interim History: calm, cooperative. endorsing tingling feet, sweats, tremor, nausea. states he had been on naltrexone and would like to restart. informed taper would be started today. per staff, + meds, meals. no groups. pleasant. no SI/HI/AVH. dep 8, anx 7. sleeping well. still scoring on CIWA. 10, 13, 14, 5, 14, 8 in the past 24H. Mental Status Exam Mental Status Exam Narrative: adequately dressed and groomed. no PMA/PMR. cooperative with interview. speech nml rate, amount, loudness, tone, latency. thoughts linear and logical. affect constricted, normo-intense, non-labile. no SI/SIBI/HI/AVH expressed. Diagnostics Vital Signs (24Hr): Vital Signs - 24 hr 12/21/22 17:28 12/21/22 20:29 12/22/22 10:20 Temperature 97.1 F 98.0 F 97.8 F Pulse Rate 71 101 H 93 Respiratory Rate 18 18 18 Blood Pressure 118/79 114/77 116/82 Pulse Oximetry 97 95 97 Oxygen Delivery Method Room Air Room Air Room Air BMI result Body Mass Index 27.3 Labs 12/20/22 03:33 12/21/22 09:16 Labs: Laboratory Results - last 48 hr 12/21/22 09:16 Sodium 140 Potassium 3.2 L Chloride 98 Carbon Dioxide 32 H Anion Gap 13 BUN 8 L Creatinine 0.77 Estim Creat Clear Calc 134.4 Estimated GFR > 60 Fasting Glucose 123 H Calcium 9.6 Total Bilirubin 0.8 AST 63 H ALT 90 H Alkaline Phosphatase 100 Total Protein 6.5 Albumin 4.0 Triglycerides 158 Cholesterol 224 LDL Cholesterol, Calc 131 HDL Cholesterol 62 Medications Medications Current Medications Acetaminophen (Acetaminophen 325 Mg Tablet) 650 mg PO Q6H PRN PRN Reason: Headache/Pain Mild Scale (1-3) Al Hydroxide/Mg Hydroxide (Magnesium Hydrox/Alum Hydrox 30 Ml Oral.Susp) 30 ml PO Q6H PRN PRN Reason: Heartburn/Nausea Last Admin: 12/21/22 21:35 Dose: 30 ml Bupropion HCl (Bupropion Hcl Xl 150 Mg Tab.Er.24h) 150 mg PO DAILY [facility] Last Admin: 12/22/22 10:40 Dose: 150 mg Clonidine HCl (Clonidine Hcl 0.1 Mg Tablet) 0.1 mg PO BEDTIME PRN; Protocol PRN Reason: Anxiety Last Admin: 12/21/22 20:32 Dose: 0.1 mg Gabapentin (Gabapentin 400 Mg Capsule) 800 mg PO TID [facility] Last Admin: 12/22/22 10:40 Dose: 800 mg Hydroxyzine HCl (Hydroxyzine Hcl 25 Mg Tablet) 25 mg PO Q6H PRN PRN Reason: Anxiety Last Admin: 12/21/22 20:32 Dose: 25 mg Lorazepam (Lorazepam 1 Mg Tablet) 1 mg PO Q2H PRN PRN Reason: CIWA 8-11 Last Admin: 12/22/22 10:41 Dose: 1 mg Lorazepam (Lorazepam 1 Mg Tablet) 2 mg PO Q2H PRN PRN Reason: CIWA 12-15 Last Admin: 12/21/22 21:35 Dose: 2 mg Lorazepam (Lorazepam 1 Mg Tablet) 3 mg PO Q2H PRN PRN Reason: CIWA >15; and call Lorazepam (Lorazepam 1 Mg Tablet) 2 mg PO TID [facility] Stop: 12/22/22 21:01 Lorazepam (Lorazepam 1 Mg Tablet) 1 mg PO QID [facility] Stop: 12/23/22 21:01 Lorazepam (Lorazepam 0.5 Mg Tablet) 0.5 mg PO QID [facility] Stop: 12/24/22 21:01 Lorazepam (Lorazepam 0.5 Mg Tablet) 0.5 mg PO BID [facility] Stop: 12/26/22 09:01 Magnesium Hydroxide (Milk Of Magnesia 30 Ml Oral.Susp) 30 ml PO DAILY PRN PRN Reason: Constipation Nicotine Polacrilex (Nicotine Polacrilex 2 Mg Gum) 2 mg BUCCAL Q1H PRN PRN Reason: Nicotine Cravings Ondansetron HCl (Ondansetron Odt 4 Mg Tab.Rapdis) 4 mg TRANSLINGU Q6H PRN PRN Reason: Nausea Last Admin: 12/21/22 21:47 Dose: 4 mg Sertraline HCl (Sertraline Hcl 100 Mg Tablet) 200 mg PO DAILY [facility] Last Admin: 12/22/22 10:40 Dose: 200 mg Trazodone HCl (Trazodone Hcl 100 Mg Tablet) 100 mg PO BEDTIME [facility] Last Admin: 12/21/22 21:34 Dose: 100 mg Allergies Allergies Allergy/AdvReac Type Severity Reaction Status Date / Time fluoxetine [From PROZAC] Allergy Unknown UNKNOWN Verified 11/10/22 06:03 Penicillins [PENICILLINS] Allergy Unknown UNKNOWN Verified 11/10/22 06:03 Assessment & Plan Assessment & Plan (1) Alcohol use disorder, severe, dependence: Status: Acute Code(s): F10.20 - Alcohol dependence, uncomplicated (2) Depressive disorder: Status: Acute Code(s): F32.A - Depression, unspecified Plan 12/21: detox using ativan per [facility] protocol. DC buspar as ineffective. increase gabapentin from 400 TID to 800 TID for Sz prophylaxis and anxiety. continue home regimen otherwise. T/C wellbutrin augmentation strategy. utox barbiturates POS from recent detox. 12/22: taper scheduled through next sunday. continue ativan per [facility] as well due to h/o withdrawal Sz. would like to give wellbutrin a try; Sz risk discussed again and both MD and pt are comfortable with starting the medication. gabapentin prophylaxis, ample ativan taper, ativan PRN. start naltrexone as well per pt request. Reason for continued inpatient stay Substantial Risk for: inability to function and rapid decompensation Time Spent With Patient Time: Total time managing care of this patient today __25__ minutes.
[2022-12-22 14:30] VITALS: BP 117/75; PULSE 100; RESP 18; TEMP 36.2; O2SAT 99
[2022-12-22] MEDS: LORazepam 1 MG TABLET 2 MG PO ×2 (15:45→22:38)
[2022-12-22 20:00] VITALS: BP 105/73; PULSE 84; TEMP 36.6; O2SAT 95
[2022-12-22] MEDS: traZODone HCL 100 MG TABLET PO (22:38)
[2022-12-22] MEDS: hydrOXYzine HCL 25 MG TABLET PO (22:38)
--- NOTE | 2022-12-23 04:14 | PC.NURSE ---
CIWA-is in CIWA Q 4 H W/A, PATIENT IS CURRENTLY ASLEEP, OBSERVED TO BE IN NO DISTRESS AT THIS TIME. RESPIRATIONS EVEN AND NON LABORED. NO DIAPHORESIS NOTED
[2022-12-23 08:46] VITALS: BP 108/67; PULSE 61; RESP 18; TEMP 36.6; O2SAT 97
[2022-12-23] MEDS: buPROPion HCl XL 150 MG TAB.ER.24H PO (08:59)
[2022-12-23] MEDS: Sertraline HCL 100 MG TABLET 200 MG PO (08:59)
[2022-12-23] MEDS: Naltrexone HCl 50 MG TABLET PO (08:59)
[2022-12-23] MEDS: Gabapentin 400 MG CAPSULE 800 MG PO ×3 (08:59→21:34)
[2022-12-23] MEDS: LORazepam 1 MG TABLET PO ×6 (08:59→21:34)
--- NOTE | 2022-12-23 16:00 | P.PNPSI_ITS ---
Subjective Subjective Date of Service: 12/23/22 Reason For Visit: Mood Disorder Interim History: pt calm cooperative c/o withdrawl sx case reviewed with ns Mental Status Exam Mental Status Exam Narrative: adequately dressed and groomed. pt withdrawn in bed . cooperative with interview. speech soft . thoughts linear and logical.c/o withdrawl affect constricted, normo-intense, non-labile. no SI/SIBI/HI/AVH expressed. asking for help Diagnostics Vital Signs (24Hr): Vital Signs - 24 hr 12/22/22 20:00 12/23/22 08:46 Temperature 97.9 F 97.8 F Pulse Rate 84 61 Respiratory Rate 18 Blood Pressure 105/73 108/67 Pulse Oximetry 95 97 Oxygen Delivery Method Room Air Room Air BMI result Body Mass Index 27.3 Labs 12/20/22 03:33 12/21/22 09:16 Medications Medications Current Medications Acetaminophen (Acetaminophen 325 Mg Tablet) 650 mg PO Q6H PRN PRN Reason: Headache/Pain Mild Scale (1-3) Al Hydroxide/Mg Hydroxide (Magnesium Hydrox/Alum Hydrox 30 Ml Oral.Susp) 30 ml PO Q6H PRN PRN Reason: Heartburn/Nausea Last Admin: 12/21/22 21:35 Dose: 30 ml Bupropion HCl (Bupropion Hcl Xl 150 Mg Tab.Er.24h) 150 mg PO DAILY [facility] Last Admin: 12/23/22 08:59 Dose: 150 mg Clonidine HCl (Clonidine Hcl 0.1 Mg Tablet) 0.1 mg PO BEDTIME PRN; Protocol PRN Reason: Anxiety Last Admin: 12/21/22 20:32 Dose: 0.1 mg Gabapentin (Gabapentin 400 Mg Capsule) 800 mg PO TID [facility] Last Admin: 12/23/22 15:09 Dose: 800 mg Hydroxyzine HCl (Hydroxyzine Hcl 25 Mg Tablet) 25 mg PO Q6H PRN PRN Reason: Anxiety Last Admin: 12/22/22 22:38 Dose: 25 mg Lorazepam (Lorazepam 1 Mg Tablet) 1 mg PO Q2H PRN PRN Reason: CIWA 8- Last Admin: 12/23/22 13:28 Dose: 1 mg Lorazepam (Lorazepam 1 Mg Tablet) 2 mg PO Q2H PRN PRN Reason: CI 12- Last Admin: 12/21/22 21:35 Dose: 2 mg Lorazepam (Lorazepam 1 Mg Tablet) 3 mg PO Q2H PRN PRN Reason: CIWA >15; and call Lorazepam (Lorazepam 1 Mg Tablet) 1 mg PO QID [facility] Stop: 12/23/22 21:01 Last Admin: 12/23/22 13:28 Dose: 1 mg Lorazepam (Lorazepam 0.5 Mg Tablet) 0.5 mg PO QID [facility] Stop: 12/24/22 21:01 Lorazepam (Lorazepam 0.5 Mg Tablet) 0.5 mg PO BID [facility] Stop: 12/26/22 09:01 Magnesium Hydroxide (Milk Of Magnesia 30 Ml Oral.Susp) 30 ml PO DAILY PRN PRN Reason: Constipation Naltrexone HCl (Naltrexone Hcl 50 Mg Tablet) 50 mg PO DAILY [facility] Last Admin: 12/23/22 08:59 Dose: 50 mg Nicotine Polacrilex (Nicotine Polacrilex 2 Mg Gum) 2 mg BUCCAL Q1H PRN PRN Reason: Nicotine Cravings Ondansetron HCl (Ondansetron Odt 4 Mg Tab.Rapdis) 4 mg TRANSLINGU Q6H PRN PRN Reason: Nausea Last Admin: 12/21/22 21:47 Dose: 4 mg Sertraline HCl (Sertraline Hcl 100 Mg Tablet) 200 mg PO DAILY [facility] Last Admin: 12/23/22 08:59 Dose: 200 mg Trazodone HCl (Trazodone Hcl 100 Mg Tablet) 100 mg PO BEDTIME [facility] Last Admin: 12/22/22 22:38 Dose: 100 mg Allergies Allergies Allergy/AdvReac Type Severity Reaction Status Date / Time fluoxetine [From PROZAC] Allergy Unknown UNKNOWN Verified 11/10/22 06:03 Penicillins [PENICILLINS] Allergy Unknown UNKNOWN Verified 11/10/22 06:03 Assessment & Plan Assessment & Plan (1) Alcohol use disorder, severe, dependence: Status: Acute Code(s): F10.20 - Alcohol dependence, uncomplicated (2) Depressive disorder: Status: Acute Code(s): F32.A - Depression, unspecified Plan 12/21: detox using ativan per [facility] protocol. DC buspar as ineffective. increase gabapentin from 400 TID to 800 TID for Sz prophylaxis and anxiety. continue home regimen otherwise. T/C wellbutrin augmentation strategy. utox barbiturates POS from recent detox. 12/22: taper scheduled through next sunday. continue ativan per CIWA as well due to h/o withdrawal Sz. would like to give wellbutrin a try; Sz risk discussed again and both MD and pt are comfortable with starting the medication. gabapentin prophylaxis, ample ativan taper, ativan PRN. start naltrexone as well per pt request. 12/23/22 cont plan of care no sz Reason for continued inpatient stay Substantial Risk for: harm to self, inability to function and med/psych decompensation Time Spent With Patient Time: Total time managing care of this patient today ____ minutes.
[2022-12-23 19:45] VITALS: BP 119/77; PULSE 86; RESP 18; TEMP 36.4; O2SAT 98
[2022-12-23] MEDS: traZODone HCL 100 MG TABLET PO (21:34)
[2022-12-23] MEDS: hydrOXYzine HCL 25 MG TABLET PO (21:36)
--- NOTE | 2022-12-24 03:48 | PC.NURSE ---
patient is observed sleeping in bed. respirations non labored and even. no restlessness or diaphoresis noted.
[2022-12-24 08:27] VITALS: BP 119/76; PULSE 62; RESP 18; TEMP 36.8; O2SAT 97
[2022-12-24] MEDS: Gabapentin 400 MG CAPSULE 800 MG PO ×3 (08:42→21:59)
[2022-12-24] MEDS: LORazepam 0.5 MG TABLET PO ×4 (08:43→21:59)
[2022-12-24] MEDS: Sertraline HCL 100 MG TABLET 200 MG PO (08:43)
[2022-12-24] MEDS: buPROPion HCl XL 150 MG TAB.ER.24H PO (08:43)
[2022-12-24] MEDS: Magnesium Hydrox/Alum Hydrox 30 ML ORAL.SUSP PO (08:43)
[2022-12-24] MEDS: Naltrexone HCl 50 MG TABLET PO (08:43)
--- NOTE | 2022-12-24 10:02 | P.PNPSI_ITS ---
Subjective Subjective Date of Service: 12/24/22 Reason For Visit: Mood Disorder Subjective Notes: Conditional Voluntary Interim History: pt calm cooperative timmons affect when seen minimal tremor on lorazepam taper was previously on Vivitrol patient talking about going to a sober house or [facility] post discharge Medication Compliance: Yes Mental Status Exam Mental Status Exam Patient Appearance: Well Grooomed Patient Orientation: Person, Place, Time and Situation Level of Consciousness: Awake and Appropriate Mood Description: Depressed and Blunted Affect Description: Appropriate and Constricted Patient Cognition Impaired: No Ability to Follow Directions: Good Speech Pattern: Clear Memory Description: Intact Hallucinations: None Delusions: Not Present Thought Process: Intact and Goal Oriented Thought Content: positive for Goal Oriented, positive for Preoccupation, negative for Suicidal Ideation or negative for Homicidal Ideation Depressive Symptoms: Increased Anxiety, Increased Irritability, Hopelessness, Increased Fatigue, Loss of Energy and Difficulty Concentrating Judgement: Fair Judgement and Insight: Patient states he would like sobriety denies self-harming thoughts was that a sober house in [place] for an extended period time which was helpful Diagnostics Vital Signs (24Hr): Vital Signs - 24 hr 12/23/22 19:45 12/24/22 08:27 Temperature 97.6 F 98.2 F Pulse Rate 86 62 Respiratory Rate 18 18 Blood Pressure 119/77 119/76 Pulse Oximetry 98 97 Oxygen Delivery Method Room Air Room Air BMI result Body Mass Index 27.3 Labs 12/20/22 03:33 12/21/22 09:16 Medications Medications Current Medications Acetaminophen (Acetaminophen 325 Mg Tablet) 650 mg PO Q6H PRN PRN Reason: Headache/Pain Mild Scale (1-3) Al Hydroxide/Mg Hydroxide (Magnesium Hydrox/Alum Hydrox 30 Ml Oral.Susp) 30 ml PO Q6H PRN PRN Reason: Heartburn/Nausea Last Admin: 12/24/22 08:43 Dose: 30 ml Bupropion HCl (Bupropion Hcl Xl 150 Mg Tab.Er.24h) 150 mg PO DAILY [facility] Last Admin: 12/24/22 08:43 Dose: 150 mg Clonidine HCl (Clonidine Hcl 0.1 Mg Tablet) 0.1 mg PO BEDTIME PRN; Protocol PRN Reason: Anxiety Last Admin: 12/21/22 20:32 Dose: 0.1 mg Gabapentin (Gabapentin 400 Mg Capsule) 800 mg PO TID [facility] Last Admin: 12/24/22 08:42 Dose: 800 mg Hydroxyzine HCl (Hydroxyzine Hcl 25 Mg Tablet) 25 mg PO Q6H PRN PRN Reason: Anxiety Last Admin: 12/23/22 21:36 Dose: 25 mg Lorazepam (Lorazepam 1 Mg Tablet) 1 mg PO Q2H PRN PRN Reason: CIWA 8-11 Last Admin: 12/23/22 13:28 Dose: 1 mg Lorazepam (Lorazepam 1 Mg Tablet) 2 mg PO Q2H PRN PRN Reason: CIWA 12-15 Last Admin: 12/21/22 21:35 Dose: 2 mg Lorazepam (Lorazepam 1 Mg Tablet) 3 mg PO Q2H PRN PRN Reason: CIWA >15; and call Lorazepam (Lorazepam 0.5 Mg Tablet) 0.5 mg PO QID [facility] Stop: 12/24/22 21:01 Last Admin: 12/24/22 08:43 Dose: 0.5 mg Lorazepam (Lorazepam 0.5 Mg Tablet) 0.5 mg PO BID [facility] Stop: 12/26/22 09:01 Magnesium Hydroxide (Milk Of Magnesia 30 Ml Oral.Susp) 30 ml PO DAILY PRN PRN Reason: Constipation Naltrexone HCl (Naltrexone Hcl 50 Mg Tablet) 50 mg PO DAILY [facility] Last Admin: 12/24/22 08:43 Dose: 50 mg Nicotine Polacrilex (Nicotine Polacrilex 2 Mg Gum) 2 mg BUCCAL Q1H PRN PRN Reason: Nicotine Cravings Ondansetron HCl (Ondansetron Odt 4 Mg Tab.Rapdis) 4 mg TRANSLINGU Q6H PRN PRN Reason: Nausea Last Admin: 12/21/22 21:47 Dose: 4 mg Sertraline HCl (Sertraline Hcl 100 Mg Tablet) 200 mg PO DAILY [facility] Last Admin: 12/24/22 08:43 Dose: 200 mg Trazodone HCl (Trazodone Hcl 100 Mg Tablet) 100 mg PO BEDTIME [facility] Last Admin: 12/23/22 21:34 Dose: 100 mg Allergies Allergies Allergy/AdvReac Type Severity Reaction Status Date / Time fluoxetine [From PROZAC] Allergy Unknown UNKNOWN Verified 11/10/22 06:03 Penicillins [PENICILLINS] Allergy Unknown UNKNOWN Verified 11/10/22 06:03 Assessment & Plan Assessment & Plan (1) Alcohol use disorder, severe, dependence: Status: Acute Code(s): F10.20 - Alcohol dependence, uncomplicated (2) Depressive disorder: Status: Acute Code(s): F32.A - Depression, unspecified Plan 12/21: detox using ativan per [facility] protocol. DC buspar as ineffective. increase gabapentin from 400 TID to 800 TID for Sz prophylaxis and anxiety. continue home regimen otherwise. T/C wellbutrin augmentation strategy. utox barbiturates POS from recent detox. 12/22: taper scheduled through next sunday. continue ativan per [facility] as well due to h/o withdrawal Sz. would like to give wellbutrin a try; Sz risk discussed again and both MD and pt are comfortable with starting the medication. gabapentin prophylaxis, ample ativan taper, ativan PRN. start naltrexone as well per pt request. 12/23/22 cont plan of care no sz 12/24/2022 Continue plan of care lorazepam taper gabapentin 800 t.i.d. Wellbutrin was started Patient educated on: diagnosis and therapeutic strategies Informed Consent: understands Reason for continued inpatient stay Substantial Risk for: inability to function and rapid decompensation Time Spent With Patient Time: Total time managing care of this patient today ____ minutes.
[2022-12-24] MEDS: LORazepam 1 MG TABLET PO (15:21)
[2022-12-24 21:57] VITALS: BP 115/76; PULSE 86; TEMP 36.7; O2SAT 96
[2022-12-24] MEDS: traZODone HCL 100 MG TABLET PO (21:59)
[2022-12-24] MEDS: hydrOXYzine HCL 25 MG TABLET PO (21:59)
--- NOTE | 2022-12-25 04:24 | PC.NURSE ---
CIWA-not performed as patient is asleep. no distress noted. no diaphoresis. respirations even and non labored.
[2022-12-25 08:35] VITALS: BP 108/78; PULSE 88; RESP 18; TEMP 36.3; O2SAT 96
[2022-12-25] MEDS: buPROPion HCl XL 150 MG TAB.ER.24H PO (09:17)
[2022-12-25] MEDS: Naltrexone HCl 50 MG TABLET PO (09:17)
[2022-12-25] MEDS: Gabapentin 400 MG CAPSULE 800 MG PO ×3 (09:17→21:53)
[2022-12-25] MEDS: LORazepam 0.5 MG TABLET PO ×2 (09:17→21:54)
[2022-12-25] MEDS: Sertraline HCL 100 MG TABLET 200 MG PO (09:20)
[2022-12-25] MEDS: LORazepam 1 MG TABLET PO (14:26)
--- NOTE | 2022-12-25 15:49 | HO.PSYCHPN ---
Subjective Subjective Date of Service: 12/25/22 Reason For Visit: Mood Disorder Interim History: calm, cooperative. slight tremor. states he is through the worst of it. reporting increased anxiety, will hold off on wellbutrin increase today. only required one extra dose of ativan over w/e, 1 mg. per staff, increased anxiety, pleasant. dep 8, anx 10. crying, eating. Mental Status Exam Mental Status Exam Narrative: adequately dressed and groomed. no PMA/PMR. cooperative with interview. speech nml rate, amount, loudness, tone, latency. thoughts linear and logical. affect constricted, normo-intense, non-labile. no SI/SIBI/HI/AVH expressed. Diagnostics Vital Signs (24Hr): Vital Signs - 24 hr 12/24/22 21:57 12/25/22 08:35 Temperature 98.1 F 97.4 F Pulse Rate 86 88 Respiratory Rate 18 Blood Pressure 115/76 108/78 Pulse Oximetry 96 96 Oxygen Delivery Method Room Air Room Air BMI result Body Mass Index 27.3 Labs 12/20/22 03:33 12/21/22 09:16 Medications Medications Current Medications Acetaminophen (Acetaminophen 325 Mg Tablet) 650 mg PO Q6H PRN PRN Reason: Headache/Pain Mild Scale (1-3) Al Hydroxide/Mg Hydroxide (Magnesium Hydrox/Alum Hydrox 30 Ml Oral.Susp) 30 ml PO Q6H PRN PRN Reason: Heartburn/Nausea Last Admin: 12/24/22 08:43 Dose: 30 ml Bupropion HCl (Bupropion Hcl Xl 150 Mg Tab.Er.24h) 150 mg PO DAILY [facility] Last Admin: 12/25/22 09:17 Dose: 150 mg Clonidine HCl (Clonidine Hcl 0.1 Mg Tablet) 0.1 mg PO BEDTIME PRN; Protocol PRN Reason: Anxiety Last Admin: 12/21/22 20:32 Dose: 0.1 mg Gabapentin (Gabapentin 400 Mg Capsule) 800 mg PO TID [facility] Last Admin: 12/25/22 14:26 Dose: 800 mg Hydroxyzine HCl (Hydroxyzine Hcl 25 Mg Tablet) 25 mg PO Q6H PRN PRN Reason: Anxiety Last Admin: 12/24/22 21:59 Dose: 25 mg Lorazepam (Lorazepam 1 Mg Tablet) 1 mg PO Q2H PRN PRN Reason: CIWA 8-11 Last Admin: 12/25/22 14:26 Dose: 1 mg Lorazepam (Lorazepam 1 Mg Tablet) 2 mg PO Q2H PRN PRN Reason: CIWA 12-15 Last Admin: 12/21/22 21:35 Dose: 2 mg Lorazepam (Lorazepam 1 Mg Tablet) 3 mg PO Q2H PRN PRN Reason: CIWA >15; and call Lorazepam (Lorazepam 0.5 Mg Tablet) 0.5 mg PO BID [facility] Stop: 12/26/22 09:01 Last Admin: 12/25/22 09:17 Dose: 0.5 mg Magnesium Hydroxide (Milk Of Magnesia 30 Ml Oral.Susp) 30 ml PO DAILY PRN PRN Reason: Constipation Naltrexone HCl (Naltrexone Hcl 50 Mg Tablet) 50 mg PO DAILY [facility] Last Admin: 12/25/22 09:17 Dose: 50 mg Nicotine Polacrilex (Nicotine Polacrilex 2 Mg Gum) 2 mg BUCCAL Q1H PRN PRN Reason: Nicotine Cravings Ondansetron HCl (Ondansetron Odt 4 Mg Tab.Rapdis) 4 mg TRANSLINGU Q6H PRN PRN Reason: Nausea Last Admin: 12/21/22 21:47 Dose: 4 mg Sertraline HCl (Sertraline Hcl 100 Mg Tablet) 200 mg PO DAILY [facility] Last Admin: 12/25/22 09:20 Dose: 200 mg Trazodone HCl (Trazodone Hcl 100 Mg Tablet) 100 mg PO BEDTIME [facility] Last Admin: 12/24/22 21:59 Dose: 100 mg Allergies Allergies Allergy/AdvReac Type Severity Reaction Status Date / Time fluoxetine [From PROZAC] Allergy Unknown UNKNOWN Verified 11/10/22 06:03 Penicillins [PENICILLINS] Allergy Unknown UNKNOWN Verified 11/10/22 06:03 Assessment & Plan Assessment & Plan (1) Alcohol use disorder, severe, dependence: Status: Acute Code(s): F10.20 - Alcohol dependence, uncomplicated (2) Depressive disorder: Status: Acute Code(s): F32.A - Depression, unspecified Plan 12/21: detox using ativan per [facility] protocol. DC buspar as ineffective. increase gabapentin from 400 TID to 800 TID for Sz prophylaxis and anxiety. continue home regimen otherwise. T/C wellbutrin augmentation strategy. utox barbiturates POS from recent detox. 8/11: taper scheduled through next sunday. continue ativan per CIWA as well due to h/o withdrawal Sz. would like to give wellbutrin a try; Sz risk discussed again and both MD and pt are comfortable with starting the medication. gabapentin prophylaxis, ample ativan taper, ativan PRN. start naltrexone as well per pt request. 12/23/22 cont plan of care no sz 12/24/2022 Continue plan of care lorazepam taper gabapentin 800 t.i.d. Wellbutrin was started 12/25: continue current mgmt. no gabapentin taper planned. increase wellbutrin to 300 mg daily when clinically indicated. Reason for continued inpatient stay Substantial Risk for: inability to function and rapid decompensation Time Spent With Patient Time: Total time managing care of this patient today __25__ minutes.
[2022-12-25 20:30] VITALS: BP 120/83; PULSE 78; RESP 16; TEMP 36.4; O2SAT 99
[2022-12-25] MEDS: traZODone HCL 100 MG TABLET PO (21:55)
[2022-12-25] MEDS: hydrOXYzine HCL 25 MG TABLET PO (22:00)
[2022-12-26 08:00] VITALS: BP 110/67; PULSE 69; RESP 16; TEMP 36.7; O2SAT 97
[2022-12-26] MEDS: Gabapentin 400 MG CAPSULE 800 MG PO ×3 (09:10→21:46)
[2022-12-26] MEDS: Naltrexone HCl 50 MG TABLET PO (09:11)
[2022-12-26] MEDS: Sertraline HCL 100 MG TABLET 200 MG PO (09:11)
[2022-12-26] MEDS: LORazepam 0.5 MG TABLET PO ×2 (09:11→21:47)
[2022-12-26] MEDS: buPROPion HCl XL 150 MG TAB.ER.24H PO (09:12)
--- NOTE | 2022-12-26 16:33 | P.PNPSI_ITS ---
Subjective Subjective Date of Service: 12/26/22 Reason For Visit: Mood Disorder Interim History: high anxiety, agoraphobia, apparently. staying in his room. states he felt better yesterday, though, inexplicably. poor sleep. agrees to increase wellbutrin to 300 mg daily as of tomorrow. awaiting bed at [facility]. per staff, anx/dep. safe. slept OK. eating, taking meds. attending groups. social. woke up last night crying in his sleep, wakes up in the morning feeling extremely anxious. Mental Status Exam Mental Status Exam Narrative: adequately dressed and groomed. no PMA/PMR. cooperative with interview. speech nml rate, amount, loudness, tone, latency. thoughts linear and logical. affect constricted, normo-intense, non-labile. no SI/SIBI/HI/AVH expressed. Diagnostics Vital Signs (24Hr): Vital Signs - 24 hr 12/25/22 20:30 12/26/22 08:00 Temperature 97.6 F 98.1 F Pulse Rate 78 69 Respiratory Rate 16 16 Blood Pressure 120/83 110/67 Pulse Oximetry 99 97 Oxygen Delivery Method Room Air Room Air BMI result Body Mass Index 27.3 Labs 12/20/22 03:33 12/21/22 09:16 Medications Medications Current Medications Acetaminophen (Acetaminophen 325 Mg Tablet) 650 mg PO Q6H PRN PRN Reason: Headache/Pain Mild Scale (1-3) Al Hydroxide/Mg Hydroxide (Magnesium Hydrox/Alum Hydrox 30 Ml Oral.Susp) 30 ml PO Q6H PRN PRN Reason: Heartburn/Nausea Last Admin: 12/24/22 08:43 Dose: 30 ml Bupropion HCl (Bupropion Hcl Xl 300 Mg Tab.Er.24h) 300 mg PO DAILY [facility] Clonidine HCl (Clonidine Hcl 0.1 Mg Tablet) 0.1 mg PO BEDTIME PRN; Protocol PRN Reason: Anxiety Last Admin: 12/21/22 20:32 Dose: 0.1 mg Gabapentin (Gabapentin 400 Mg Capsule) 800 mg PO TID [facility] Last Admin: 12/26/22 14:37 Dose: 800 mg Hydroxyzine HCl (Hydroxyzine Hcl 25 Mg Tablet) 25 mg PO Q6H PRN PRN Reason: Anxiety Last Admin: 12/25/22 22:00 Dose: 25 mg Lorazepam (Lorazepam 0.5 Mg Tablet) 0.5 mg PO BID [facility] Stop: 12/27/22 09:01 Magnesium Hydroxide (Milk Of Magnesia 30 Ml Oral.Susp) 30 ml PO DAILY PRN PRN Reason: Constipation Naltrexone HCl (Naltrexone Hcl 50 Mg Tablet) 50 mg PO DAILY [facility] Last Admin: 12/26/22 09:11 Dose: 50 mg Nicotine Polacrilex (Nicotine Polacrilex 2 Mg Gum) 2 mg BUCCAL Q1H PRN PRN Reason: Nicotine Cravings Ondansetron HCl (Ondansetron Odt 4 Mg Tab.Rapdis) 4 mg TRANSLINGU Q6H PRN PRN Reason: Nausea Last Admin: 12/21/22 21:47 Dose: 4 mg Sertraline HCl (Sertraline Hcl 100 Mg Tablet) 200 mg PO DAILY [facility] Last Admin: 12/26/22 09:11 Dose: 200 mg Trazodone HCl (Trazodone Hcl 100 Mg Tablet) 100 mg PO BEDTIME [facility] Last Admin: 12/25/22 21:55 Dose: 100 mg Allergies Allergies Allergy/AdvReac Type Severity Reaction Status Date / Time fluoxetine [From PROZAC] Allergy Unknown UNKNOWN Verified 11/10/22 06:03 Penicillins [PENICILLINS] Allergy Unknown UNKNOWN Verified 11/10/22 06:03 Assessment & Plan Assessment & Plan (1) Alcohol use disorder, severe, dependence: Status: Acute Code(s): F10.20 - Alcohol dependence, uncomplicated (2) Depressive disorder: Status: Acute Code(s): F32.A - Depression, unspecified Plan 12/21: detox using ativan per [facility] protocol. DC buspar as ineffective. increase gabapentin from 400 TID to 800 TID for Sz prophylaxis and anxiety. continue home regimen otherwise. T/C wellbutrin augmentation strategy. utox barbiturates POS from recent detox. 12/22: taper scheduled through next sunday. continue ativan per [facility] as well due to h/o withdrawal Sz. would like to give wellbutrin a try; Sz risk di scussed again and both MD and pt are comfortable with starting the medication. gabapentin prophylaxis, ample ativan taper, ativan PRN. start naltrexone as well per pt request. 12/23/22 cont plan of care no sz 12/24/2022 Continue plan of care lorazepam taper gabapentin 800 t.i.d. Wellbutrin was star [facility] 12/25: continue current mgmt. no gabapentin taper planned. increase wellbutrin to 300 mg daily when clinically indicated. 12/26: increase wellbutrin to 300 as of tomorrow. ativan taper extended through tomorrow morning. high anxiety, apparent agoraphobia. Reason for continued inpatient stay Substantial Risk for: inability to function and rapid decompensation Time Spent With Patient Time: Total time managing care of this patient today __25__ minutes.
[2022-12-26 20:05] VITALS: BP 117/76; PULSE 82; RESP 18; TEMP 36.6; O2SAT 97
[2022-12-26] MEDS: hydrOXYzine HCL 25 MG TABLET PO (21:46)
[2022-12-26] MEDS: traZODone HCL 100 MG TABLET PO (21:46)
[2022-12-27 08:48] VITALS: BP 116/68; PULSE 61; RESP 16; TEMP 36.6; O2SAT 97
[2022-12-27] MEDS: Sertraline HCL 100 MG TABLET 200 MG PO (08:50)
[2022-12-27] MEDS: Naltrexone HCl 50 MG TABLET PO (08:50)
[2022-12-27] MEDS: buPROPion HCl XL 300 MG TAB.ER.24H PO (08:50)
[2022-12-27] MEDS: Gabapentin 400 MG CAPSULE 800 MG PO ×3 (08:50→22:32)
[2022-12-27] MEDS: LORazepam 0.5 MG TABLET PO (08:50)
--- NOTE | 2022-12-27 16:06 | P.PNPSI_ITS ---
Subjective Subjective Date of Service: 12/27/22 Reason For Visit: Mood Disorder Interim History: [place] in [facility] appears less immobilized by anxiety than yesterday. has intake with [facility] sunday, may have a bed next week. poor sleep. trying to attend groups. very anxious. agrees to increase trazodoen dosing to 150 mg from 100 mg and asks to add melatonin. Mental Status Exam Mental Status Exam Narrative: adequately dressed and groomed. no PMA/PMR. cooperative with interview. speech nml rate, amount, loudness, tone, latency. thoughts linear and logical. affect constricted, normo-intense, non-labile. mood anxious. no SI/SIBI/HI/AVH expressed. Diagnostics Vital Signs (24Hr): Vital Signs - 24 hr 12/26/22 20:05 12/27/22 08:48 Temperature 97.8 F 97.8 F Pulse Rate 82 61 Respiratory Rate 18 16 Blood Pressure 117/76 116/68 Pulse Oximetry 97 97 Oxygen Delivery Method Room Air Room Air BMI result Body Mass Index 27.3 Labs 12/20/22 03:33 12/21/22 09:16 Medications Medications Current Medications Acetaminophen (Acetaminophen 325 Mg Tablet) 650 mg PO Q6H PRN PRN Reason: Headache/Pain Mild Scale (1-3) Al Hydroxide/Mg Hydroxide (Magnesium Hydrox/Alum Hydrox 30 Ml Oral.Susp) 30 ml PO Q6H PRN PRN Reason: Heartburn/Nausea Last Admin: 12/24/22 08:43 Dose: 30 ml Bupropion HCl (Bupropion Hcl Xl 300 Mg Tab.Er.24h) 300 mg PO DAILY [facility] Last Admin: 12/27/22 08:50 Dose: 300 mg Clonidine HCl (Clonidine Hcl 0.1 Mg Tablet) 0.1 mg PO BEDTIME PRN; Protocol PRN Reason: Anxiety Last Admin: 12/21/22 20:32 Dose: 0.1 mg Gabapentin (Gabapentin 400 Mg Capsule) 800 mg PO TID [facility] Last Admin: 12/27/22 15:31 Dose: 800 mg Hydroxyzine HCl (Hydroxyzine Hcl 25 Mg Tablet) 25 mg PO Q6H PRN PRN Reason: Anxiety Last Admin: 12/26/22 21:46 Dose: 25 mg Magnesium Hydroxide (Milk Of Magnesia 30 Ml Oral.Susp) 30 ml PO DAILY PRN PRN Reason: Constipation Melatonin (Melatonin 3 Mg Tablet) 6 mg PO BEDTIME [facility] Naltrexone HCl (Naltrexone Hcl 50 Mg Tablet) 50 mg PO DAILY [facility] Last Admin: 12/27/22 08:50 Dose: 50 mg Nicotine Polacrilex (Nicotine Polacrilex 2 Mg Gum) 2 mg BUCCAL Q1H PRN PRN Reason: Nicotine Cravings Ondansetron HCl (Ondansetron Odt 4 Mg Tab.Rapdis) 4 mg TRANSLINGU Q6H PRN PRN Reason: Nausea Last Admin: 12/21/22 21:47 Dose: 4 mg Sertraline HCl (Sertraline Hcl 100 Mg Tablet) 200 mg PO DAILY [facility] Last Admin: 12/27/22 08:50 Dose: 200 mg Trazodone HCl (Trazodone Hcl 50 Mg Tablet) 150 mg PO BEDTIME [facility] Allergies Allergies Allergy/AdvReac Type Severity Reaction Status Date / Time fluoxetine [From PROZAC] Allergy Unknown UNKNOWN Verified 11/10/22 06:03 Penicillins [PENICILLINS] Allergy Unknown UNKNOWN Verified 11/10/22 06:03 Assessment & Plan Assessment & Plan (1) Alcohol use disorder, severe, dependence: Status: Acute Code(s): F10.20 - Alcohol dependence, uncomplicated (2) Depressive disorder: Status: Acute Code(s): F32.A - Depression, unspecified Plan 12/21: detox using ativan per [facility] protocol. DC buspar as ineffective. increase gabapentin from 400 TID to 800 TID for Sz prophylaxis and anxiety. continue home regimen otherwise. T/C wellbutrin augmentation strategy. utox barbiturates POS from recent detox. 12/22: taper scheduled through next sunday. continue ativan per [facility] as well due to h/o withdrawal Sz. would like to give wellbutrin a try; Sz risk discussed again and both MD and pt are comfortable with starting the medication. gabapentin prophylaxis, ample ativan taper, ativan PRN. start naltrexone as well per pt request. 12/23/22 cont plan of care no sz 12/24/2022 Continue plan of care lorazepam taper gabapentin 800 t.i.d. Wellbutrin was started 12/25: continue current mgmt. no gabapentin taper planned. increase wellbutrin to 300 mg daily when clinically indicated. 12/26: increase wellbutrin to 300 as of tomorrow. ativan taper extended through tomorrow morning. high anxiety, apparent agoraphobia. 12/27: anxious, insomniac. agreeable to increase trazodone to 150 tonight and asks to add melatonin 6. [facility] intake sunday, may have a bed next week. Reason for continued inpatient stay Substantial Risk for: harm to self, inability to function and rapid decompensation Time Spent With Patient Time: Total time managing care of this patient today __25__ minutes.
[2022-12-27 19:35] VITALS: BP 118/79; PULSE 81; RESP 18; TEMP 36.2; O2SAT 100
[2022-12-27] MEDS: traZODone HCL 50 MG TABLET 150 MG PO (22:32)
[2022-12-27] MEDS: Melatonin 3 MG TABLET 6 MG PO (22:32)
[2022-12-28 07:00] VITALS: BMI 28.5
[2022-12-28 08:50] VITALS: BP 118/75; PULSE 73; RESP 18; TEMP 36.2; O2SAT 97
[2022-12-28] MEDS: Sertraline HCL 100 MG TABLET 200 MG PO (08:51)
[2022-12-28] MEDS: buPROPion HCl XL 300 MG TAB.ER.24H PO (08:51)
[2022-12-28] MEDS: Gabapentin 400 MG CAPSULE 800 MG PO ×3 (08:51→22:21)
[2022-12-28] MEDS: Naltrexone HCl 50 MG TABLET PO (08:52)
--- NOTE | 2022-12-28 15:45 | HO.PSYCHPN ---
Subjective Subjective Date of Service: 12/28/22 Reason For Visit: Mood Disorder Interim History: appears to be gradually improving. up and about the unit. does feel loopy this morning, agrees to drop trazodone from 150 QHS to 125 QHS. anxiety still pretty high. awaiting interview with [facility] tomorrow. per staff, visible. keeping to himself. feeling down about having to break up with his fiancee of 5 yrs bcse they cannot be sober together. attending groups. intermittent SI. appeared to have slept overnight. Mental Status Exam Mental Status Exam Narrative: adequately dressed and groomed. no PMA/PMR. cooperative with interview. speech nml rate, amount, loudness, tone, latency. thoughts linear and logical. affect constricted, normo-intense, non-labile. mood anxious. intermittent, fleeting SI. no SIBI/HI/AVH expressed. Diagnostics Vital Signs (24Hr): Vital Signs - 24 hr 12/27/22 19:35 12/28/22 08:50 Temperature 97.1 F 97.2 F Pulse Rate 81 73 Respiratory Rate 18 18 Blood Pressure 118/79 118/75 Pulse Oximetry 100 97 Oxygen Delivery Method Room Air Room Air BMI result Body Mass Index 28.5 Labs 12/20/22 03:33 12/21/22 09:16 Medications Medications Current Medications Acetaminophen (Acetaminophen 325 Mg Tablet) 650 mg PO Q6H PRN PRN Reason: Headache/Pain Mild Scale (1-3) Al Hydroxide/Mg Hydroxide (Magnesium Hydrox/Alum Hydrox 30 Ml Oral.Susp) 30 ml PO Q6H PRN PRN Reason: Heartburn/Nausea Last Admin: 12/24/22 08:43 Dose: 30 ml Bupropion HCl (Bupropion Hcl Xl 300 Mg Tab.Er.24h) 300 mg PO DAILY [facility] Last Admin: 12/28/22 08:51 Dose: 300 mg Clonidine HCl (Clonidine Hcl 0.1 Mg Tablet) 0.1 mg PO BEDTIME PRN; Protocol PRN Reason: Anxiety Last Admin: 12/21/22 20:32 Dose: 0.1 mg Gabapentin (Gabapentin 400 Mg Capsule) 800 mg PO TID [facility] Last Admin: 12/28/22 08:51 Dose: 800 mg Hydroxyzine HCl (Hydroxyzine Hcl 25 Mg Tablet) 25 mg PO Q6H PRN PRN Reason: Anxiety Last Admin: 12/26/22 21:46 Dose: 25 mg Magnesium Hydroxide (Milk Of Magnesia 30 Ml Oral.Susp) 30 ml PO DAILY PRN PRN Reason: Constipation Melatonin (Melatonin 3 Mg Tablet) 6 mg PO BEDTIME [facility] Last Admin: 12/27/22 22:32 Dose: 6 mg Naltrexone HCl (Naltrexone Hcl 50 Mg Tablet) 50 mg PO DAILY [facility] Last Admin: 12/28/22 08:52 Dose: 50 mg Nicotine Polacrilex (Nicotine Polacrilex 2 Mg Gum) 2 mg BUCCAL Q1H PRN PRN Reason: Nicotine Cravings Ondansetron HCl (Ondansetron Odt 4 Mg Tab.Rapdis) 4 mg TRANSLINGU Q6H PRN PRN Reason: Nausea Last Admin: 12/21/22 21:47 Dose: 4 mg Sertraline HCl (Sertraline Hcl 100 Mg Tablet) 200 mg PO DAILY [facility] Last Admin: 12/28/22 08:51 Dose: 200 mg Trazodone HCl (Trazodone Hcl 25 Mg Halftab) 125 mg PO BEDTIME [facility] Allergies Allergies Allergy/AdvReac Type Severity Reaction Status Date / Time fluoxetine [From PROZAC] Allergy Unknown UNKNOWN Verified 11/10/22 06:03 Penicillins [PENICILLINS] Allergy Unknown UNKNOWN Verified 11/10/22 06:03 Assessment & Plan Assessment & Plan (1) Alcohol use disorder, severe, dependence: Status: Acute Code(s): F10.20 - Alcohol dependence, uncomplicated (2) Depressive disorder: Status: Acute Code(s): F32.A - Depression, unspecified Plan 12/21: detox using ativan per [facility] protocol. DC buspar as ineffective. increase gabapentin from 400 TID to 800 TID for Sz prophylaxis and anxiety. continue home regimen otherwise. T/C wellbutrin augmentation strategy. utox barbiturates POS from recent detox. 12/22: taper scheduled through next sunday. continue ativan per [facility] as well due to h/o withdrawal Sz. would like to give wellbutrin a try; Sz risk discussed again and both MD and pt are comfortable with starting the medication. gabapentin prophylaxis, ample ativan taper, ativan PRN. start naltrexone as well per pt request. 12/23/22 cont plan of care no sz 12/24/2022 Continue plan of care lorazepam taper gabapentin 800 t.i.d. Wellbutrin was started 12/25: continue current mgmt. no gabapentin taper planned. increase wellbutrin to 300 mg daily when clinically indicated. 12/26: increase wellbutrin to 300 as of tomorrow. ativan taper extended through tomorrow morning. high anxiety, apparent agoraphobia. 12/27: anxious, insomniac. agreeable to increase trazodone to 150 tonight and asks to add melatonin 6. [facility] intake sunday, may have a bed next week. 12/28: gradual improvemtn. anxious. [facility] interview tomorrow. decrease trazodone from 150 mg QHS to 125 mg QHS due to feeling logy this morning. Reason for continued inpatient stay Substantial Risk for: inability to function and rapid decompensation Time Spent With Patient Time: Total time managing care of this patient today __25__ minutes.
[2022-12-28 21:58] VITALS: BP 122/78; PULSE 78; RESP 18; TEMP 36.6; O2SAT 96
[2022-12-28] MEDS: Melatonin 3 MG TABLET 6 MG PO (22:20)
[2022-12-28] MEDS: traZODone HCL 25 MG HALFTAB 125 MG PO (22:21)
[2022-12-29 06:00] VITALS: BP 106/70; PULSE 78; RESP 18; TEMP 36.3; O2SAT 96
[2022-12-29] MEDS: Gabapentin 400 MG CAPSULE 800 MG PO ×3 (08:42→21:56)
[2022-12-29] MEDS: Sertraline HCL 100 MG TABLET 200 MG PO (08:42)
[2022-12-29] MEDS: buPROPion HCl XL 300 MG TAB.ER.24H PO (08:42)
[2022-12-29] MEDS: Naltrexone HCl 50 MG TABLET PO (08:43)
--- NOTE | 2022-12-29 14:07 | P.PNPSI_ITS ---
Subjective Subjective Date of Service: 12/29/22 Reason For Visit: Mood Disorder Interim History: calm, cooperative. continues improvement. interview with [facility] today. per staff, active, appropriate. no change in presentation. slept well, eating. anx/dep 3. no SI/HI. Mental Status Exam Mental Status Exam Narrative: adequately dressed and groomed. no PMA/PMR. cooperative with interview. speech nml rate, amount, loudness, tone, latency. thoughts linear and logical. affect constricted, normo-intense, non-labile. mood anxious. intermittent, fleeting SI. no SIBI/HI/AVH expressed. Diagnostics Vital Signs (24Hr): Vital Signs - 24 hr 12/28/22 21:58 12/29/22 06:00 Temperature 97.8 F 97.4 F Pulse Rate 78 78 Respiratory Rate 18 18 Blood Pressure 122/78 106/70 Pulse Oximetry 96 96 Oxygen Delivery Method Room Air Room Air BMI result Body Mass Index 28.5 Labs 12/20/22 03:33 12/21/22 09:16 Medications Medications Current Medications Acetaminophen (Acetaminophen 325 Mg Tablet) 650 mg PO Q6H PRN PRN Reason: Headache/Pain Mild Scale (1-3) Al Hydroxide/Mg Hydroxide (Magnesium Hydrox/Alum Hydrox 30 Ml Oral.Susp) 30 ml PO Q6H PRN PRN Reason: Heartburn/Nausea Last Admin: 12/24/22 08:43 Dose: 30 ml Bupropion HCl (Bupropion Hcl Xl 300 Mg Tab.Er.24h) 300 mg PO DAILY [facility] Last Admin: 12/29/22 08:42 Dose: 300 mg Clonidine HCl (Clonidine Hcl 0.1 Mg Tablet) 0.1 mg PO BEDTIME PRN; Protocol PRN Reason: Anxiety Last Admin: 12/21/22 20:32 Dose: 0.1 mg Gabapentin (Gabapentin 400 Mg Capsule) 800 mg PO TID [facility] Last Admin: 12/29/22 08:42 Dose: 800 mg Hydroxyzine HCl (Hydroxyzine Hcl 25 Mg Tablet) 25 mg PO Q6H PRN PRN Reason: Anxiety Last Admin: 12/26/22 21:46 Dose: 25 mg Magnesium Hydroxide (Milk Of Magnesia 30 Ml Oral.Susp) 30 ml PO DAILY PRN PRN Reason: Constipation Melatonin (Melatonin 3 Mg Tablet) 6 mg PO BEDTIME [facility] Last Admin: 12/28/22 22:20 Dose: 6 mg Naltrexone HCl (Naltrexone Hcl 50 Mg Tablet) 50 mg PO DAILY [facility] Last Admin: 12/29/22 08:43 Dose: 50 mg Nicotine Polacrilex (Nicotine Polacrilex 2 Mg Gum) 2 mg BUCCAL Q1H PRN PRN Reason: Nicotine Cravings Ondansetron HCl (Ondansetron Odt 4 Mg Tab.Rapdis) 4 mg TRANSLINGU Q6H PRN PRN Reason: Nausea Last Admin: 12/21/22 21:47 Dose: 4 mg Sertraline HCl (Sertraline Hcl 100 Mg Tablet) 200 mg PO DAILY [facility] Last Admin: 12/29/22 08:42 Dose: 200 mg Trazodone HCl (Trazodone Hcl 25 Mg Halftab) 125 mg PO BEDTIME [facility] Last Admin: 12/28/22 22:21 Dose: 125 mg Allergies Allergies Allergy/AdvReac Type Severity Reaction Status Date / Time fluoxetine [From PROZAC] Allergy Unknown UNKNOWN Verified 11/10/22 06:03 Penicillins [PENICILLINS] Allergy Unknown UNKNOWN Verified 11/10/22 06:03 Assessment & Plan Assessment & Plan (1) Alcohol use disorder, severe, dependence: Status: Acute Code(s): F10.20 - Alcohol dependence, uncomplicated (2) Depressive disorder: Status: Acute Code(s): F32.A - Depression, unspecified Plan 12/21: detox using ativan per [facility] protocol. DC buspar as ineffective. increase gabapentin from 400 TID to 800 TID for Sz prophylaxis and anxiety. continue home regimen otherwise. T/C wellbutrin augmentation strategy. utox barbiturates POS from recent detox. 12/22: taper scheduled through next sunday. continue ativan per [facility] as well due to h/o withdrawal Sz. would like to give wellbutrin a try; Sz risk discussed again and both MD and pt are comfortable with starting the medication. gabapentin prophylaxis, ample ativan taper, ativan PRN. start naltrexone as well per pt request. 12/23/22 cont plan of care no sz 12/24/2022 Continue plan of care lorazepam taper gabapentin 800 t.i.d. Wellbutrin was started 12/25: continue current mgmt. no gabapentin taper planned. increase wellbutrin to 300 mg daily when clinically indicated. 12/26: increase wellbutrin to 300 as of tomorrow. ativan taper extended through tomorrow morning. high anxiety, apparent agoraphobia. 12/27: anxious, insomniac. agreeable to increase trazodone to 150 tonight and asks to add melatonin 6. [facility] intake sunday, may have a bed next week. 12/28: gradual improvement. anxious. [facility] interview tomorrow. decrease trazodone from 150 mg QHS to 125 mg QHS due to feeling logy this morning. 12/29: slept well last night on 125 traz, not too groggy this morning. accepted by [facility] for 01/05 admission. continue current mgmt. Reason for continued inpatient stay Substantial Risk for: inability to function and rapid decompensation Time Spent With Patient Time: Total time managing care of this patient today __25__ minutes.
[2022-12-29 20:55] VITALS: BP 117/79; PULSE 75; RESP 18; TEMP 36.7; O2SAT 98
[2022-12-29] MEDS: Melatonin 3 MG TABLET 6 MG PO (21:56)
[2022-12-29] MEDS: traZODone HCL 25 MG HALFTAB 125 MG PO (21:56)
[2022-12-30 09:03] VITALS: BP 117/71; PULSE 69; RESP 16; TEMP 36.8; O2SAT 98
[2022-12-30] MEDS: Sertraline HCL 100 MG TABLET 200 MG PO (09:16)
[2022-12-30] MEDS: buPROPion HCl XL 300 MG TAB.ER.24H PO (09:16)
[2022-12-30] MEDS: Gabapentin 400 MG CAPSULE 800 MG PO (09:16)
[2022-12-30] MEDS: Naltrexone HCl 50 MG TABLET PO (09:16)
--- NOTE | 2022-12-30 12:48 | HO.PSYCHPN ---
Subjective Subjective Date of Service: 12/30/22 Reason For Visit: Mood Disorder Interim History: reports sleeping well and not feeling groggy in the morning. has had some dizzy spells in the afternoon. meds reviewed, gabapentin most likely to cause such Sx, agrees to decrease from 800 TID to 600 TID for now. per staff, seeing stars on occasion. Mental Status Exam Mental Status Exam Narrative: adequately dressed and groomed. no PMA/PMR. cooperative with interview. speech nml rate, amount, loudness, tone, latency. thoughts linear and logical. affect constricted, normo-intense, non-labile. mood anxious. no SI/SIBI/HI/AVH expressed. Diagnostics Vital Signs (24Hr): Vital Signs - 24 hr 12/29/22 20:55 12/30/22 09:03 Temperature 98.1 F 98.2 F Pulse Rate 75 69 Respiratory Rate 18 16 Blood Pressure 117/79 117/71 Pulse Oximetry 98 98 Oxygen Delivery Method Room Air Room Air BMI result Body Mass Index 28.5 Labs 12/20/22 03:33 12/21/22 09:16 Medications Medications Current Medications Acetaminophen (Acetaminophen 325 Mg Tablet) 650 mg PO Q6H PRN PRN Reason: Headache/Pain Mild Scale (1-3) Al Hydroxide/Mg Hydroxide (Magnesium Hydrox/Alum Hydrox 30 Ml Oral.Susp) 30 ml PO Q6H PRN PRN Reason: Heartburn/Nausea Last Admin: 12/24/22 08:43 Dose: 30 ml Bupropion HCl (Bupropion Hcl Xl 300 Mg Tab.Er.24h) 300 mg PO DAILY [facility] Last Admin: 12/30/22 09:16 Dose: 300 mg Gabapentin (Gabapentin 300 Mg Capsule) 600 mg PO TID [facility] Hydroxyzine HCl (Hydroxyzine Hcl 25 Mg Tablet) 25 mg PO Q6H PRN PRN Reason: Anxiety Last Admin: 12/26/22 21:46 Dose: 25 mg Magnesium Hydroxide (Milk Of Magnesia 30 Ml Oral.Susp) 30 ml PO DAILY PRN PRN Reason: Constipation Melatonin (Melatonin 3 Mg Tablet) 6 mg PO BEDTIME [facility] Last Admin: 12/29/22 21:56 Dose: 6 mg Naltrexone HCl (Naltrexone Hcl 50 Mg Tablet) 50 mg PO DAILY [facility] Last Admin: 12/30/22 09:16 Dose: 50 mg Nicotine Polacrilex (Nicotine Polacrilex 2 Mg Gum) 2 mg BUCCAL Q1H PRN PRN Reason: Nicotine Cravings Ondansetron HCl (Ondansetron Odt 4 Mg Tab.Rapdis) 4 mg TRANSLINGU Q6H PRN PRN Reason: Nausea Last Admin: 12/21/22 21:47 Dose: 4 mg Sertraline HCl (Sertraline Hcl 100 Mg Tablet) 200 mg PO DAILY [facility] Last Admin: 12/30/22 09:16 Dose: 200 mg Trazodone HCl (Trazodone Hcl 100 Mg Tablet) 100 mg PO BEDTIME [facility] Trazodone HCl (Trazodone Hcl 25 Mg Halftab) 25 mg PO BEDTIME [facility] Allergies Allergies Allergy/AdvReac Type Severity Reaction Status Date / Time fluoxetine [From PROZAC] Allergy Unknown UNKNOWN Verified 11/10/22 06:03 Penicillins [PENICILLINS] Allergy Unknown UNKNOWN Verified 11/10/22 06:03 Assessment & Plan Assessment & Plan (1) Alcohol use disorder, severe, dependence: Status: Acute Code(s): F10.20 - Alcohol dependence, uncomplicated (2) Depressive disorder: Status: Acute Code(s): F32.A - Depression, unspecified Plan 12/21: detox using ativan per [facility] protocol. DC buspar as ineffective. increase gabapentin from 400 TID to 800 TID for Sz prophylaxis and anxiety. continue home regimen otherwise. T/C wellbutrin augmentation strategy. utox barbiturates POS from recent detox. 12/22: taper scheduled through next sunday. continue ativan per [facility] as well due to h/o withdrawal Sz. would like to give wellbutrin a try; Sz risk discussed again and both MD and pt are comfortable with starting the medication. gabapentin prophylaxis, ample ativan taper, ativan PRN. start naltrexone as well per pt request. 12/23/22 cont plan of care no sz 12/24/2022 Continue plan of care lorazepam taper gabapentin 800 t.i.d. Wellbutrin was started 12/25: continue current mgmt. no gabapentin taper planned. increase wellbutrin to 300 mg daily when clinically indicated. 12/26: increase wellbutrin to 300 as of tomorrow. ativan taper extended through tomorrow morning. high anxiety, apparent agoraphobia. 12/27: anxious, insomniac. agreeable to increase trazodone to 150 tonight and asks to add melatonin 6. [facility] intake sunday, may have a bed next week. 12/28: gradual improvement. anxious. [facility] interview tomorrow. decrease trazodone from 150 mg QHS to 125 mg QHS due to feeling logy this morning. 12/29: slept well last night on 125 traz, not too groggy this morning. accepted by [facility] for 01/05 admission. continue current mgmt. 12/30: sleep continues to go well. some dizziness in afternoon. agrees to decrease gabapentin to 600 TID from 800 TID to see if it improves dizziness. otherwise continue current mgmt. Reason for continued inpatient stay Substantial Risk for: harm to self, inability to function and rapid decompensation Time Spent With Patient Time: Total time managing care of this patient today ____ minutes.
[2022-12-30] MEDS: Gabapentin 300 MG CAPSULE 600 MG PO ×2 (14:43→22:50)
[2022-12-30 21:43] VITALS: BP 121/78; PULSE 69; RESP 16; TEMP 36.6; O2SAT 97
[2022-12-30] MEDS: Melatonin 3 MG TABLET 6 MG PO (22:50)
[2022-12-30] MEDS: traZODone HCL 100 MG TABLET PO (22:51)
[2022-12-30] MEDS: traZODone HCL 25 MG HALFTAB PO (22:52)
[2022-12-31] MEDS: Gabapentin 300 MG CAPSULE 600 MG PO ×3 (09:20→22:30)
[2022-12-31] MEDS: buPROPion HCl XL 300 MG TAB.ER.24H PO (09:20)
[2022-12-31] MEDS: Sertraline HCL 100 MG TABLET 200 MG PO (09:21)
[2022-12-31] MEDS: Naltrexone HCl 50 MG TABLET PO (09:21)
[2022-12-31 09:22] VITALS: BP 100/61; PULSE 75; RESP 16; TEMP 36.7; O2SAT 98
--- NOTE | 2022-12-31 13:22 | HO.PSYCHPN ---
Subjective Subjective Date of Service: 12/31/22 Reason For Visit: Mood Disorder Interim History: no change in presentation. had a 4 hour nap yesterday. no dizziness yesterday. per staff, had a good sleep. slept from 11 pm on. no dizziness yesterday afternoon, but did nap for 4 hours. Mental Status Exam Mental Status Exam Narrative: adequately dressed and groomed. no PMA/PMR. cooperative with interview. speech nml rate, amount, loudness, tone, latency. thoughts linear and logical. affect constricted, normo-intense, non-labile. mood anxious. no SI/SIBI/HI/AVH expressed. Diagnostics Vital Signs (24Hr): Vital Signs - 24 hr 12/30/22 21:43 12/31/22 09:22 Temperature 97.9 F 98.1 F Pulse Rate 69 75 Respiratory Rate 16 16 Blood Pressure 121/78 100/61 Pulse Oximetry 97 98 Oxygen Delivery Method Room Air Room Air BMI result Body Mass Index 28.5 Labs 12/20/22 03:33 12/21/22 09:16 Medications Medications Current Medications Acetaminophen (Acetaminophen 325 Mg Tablet) 650 mg PO Q6H PRN PRN Reason: Headache/Pain Mild Scale (1-3) Al Hydroxide/Mg Hydroxide (Magnesium Hydrox/Alum Hydrox 30 Ml Oral.Susp) 30 ml PO Q6H PRN PRN Reason: Heartburn/Nausea Last Admin: 12/24/22 08:43 Dose: 30 ml Bupropion HCl (Bupropion Hcl Xl 300 Mg Tab.Er.24h) 300 mg PO DAILY [facility] Last Admin: 12/31/22 09:20 Dose: 300 mg Gabapentin (Gabapentin 300 Mg Capsule) 600 mg PO TID [facility] Last Admin: 12/31/22 09:20 Dose: 600 mg Hydroxyzine HCl (Hydroxyzine Hcl 25 Mg Tablet) 25 mg PO Q6H PRN PRN Reason: Anxiety Last Admin: 12/26/22 21:46 Dose: 25 mg Magnesium Hydroxide (Milk Of Magnesia 30 Ml Oral.Susp) 30 ml PO DAILY PRN PRN Reason: Constipation Melatonin (Melatonin 3 Mg Tablet) 6 mg PO BEDTIME [facility] Last Admin: 12/30/22 22:50 Dose: 6 mg Naltrexone HCl (Naltrexone Hcl 50 Mg Tablet) 50 mg PO DAILY [facility] Last Admin: 12/31/22 09:21 Dose: 50 mg Nicotine Polacrilex (Nicotine Polacrilex 2 Mg Gum) 2 mg BUCCAL Q1H PRN PRN Reason: Nicotine Cravings Ondansetron HCl (Ondansetron Odt 4 Mg Tab.Rapdis) 4 mg TRANSLINGU Q6H PRN PRN Reason: Nausea Last Admin: 12/21/22 21:47 Dose: 4 mg Sertraline HCl (Sertraline Hcl 100 Mg Tablet) 200 mg PO DAILY [facility] Last Admin: 12/31/22 09:21 Dose: 200 mg Trazodone HCl (Trazodone Hcl 100 Mg Tablet) 100 mg PO BEDTIME [facility] Last Admin: 12/30/22 22:51 Dose: 100 mg Trazodone HCl (Trazodone Hcl 25 Mg Halftab) 25 mg PO BEDTIME [facility] Last Admin: 12/30/22 22:52 Dose: 25 mg Allergies Allergies Allergy/AdvReac Type Severity Reaction Status Date / Time fluoxetine [From PROZAC] Allergy Unknown UNKNOWN Verified 11/10/22 06:03 Penicillins [PENICILLINS] Allergy Unknown UNKNOWN Verified 11/10/22 06:03 Assessment & Plan Assessment & Plan (1) Alcohol use disorder, severe, dependence: Status: Acute Code(s): F10.20 - Alcohol dependence, uncomplicated (2) Depressive disorder: Status: Acute Code(s): F32.A - Depression, unspecified Plan 12/21: detox using ativan per [facility] protocol. DC buspar as ineffective. increase gabapentin from 400 TID to 800 TID for Sz prophylaxis and anxiety. continue home regimen otherwise. T/C wellbutrin augmentation strategy. utox barbiturates POS from recent detox. 12/22: taper scheduled through next sunday. continue ativan per [facility] as well due to h/o withdrawal Sz. would like to give wellbutrin a try; Sz risk discussed again and both MD and pt are comfortable with starting the medication. gabapentin prophylaxis, ample ativan taper, ativan PRN. start naltrexone as well per pt request. 12/23/22 cont plan of care no sz 12/24/2022 Continue plan of care lorazepam taper gabapentin 800 t.i.d. Wellbutrin was started 12/25: continue current mgmt. no gabapentin taper planned. increase wellbutrin to 300 mg daily when clinically indicated. 12/26: increase wellbutrin to 300 as of tomorrow. ativan taper extended through tomorrow morning. high anxiety, apparent agoraphobia. 12/27: anxious, insomniac. agreeable to increase trazodone to 150 tonight and asks to add melatonin 6. [facility] intake sunday, may have a bed next week. 12/28: gradual improvement. anxious. [facility] interview tomorrow. decrease trazodone from 150 mg QHS to 125 mg QHS due to feeling logy this morning. 12/29: slept well last night on 125 traz, not too groggy this morning. accepted by [facility] for 01/05 admission. continue current mgmt. 12/30: sleep continues to go well. some dizziness in afternoon. agrees to decrease gabapentin to 600 TID from 800 TID to see if it improves dizziness. otherwise continue current mgmt. 12/31: slept well. no dizziness. continue current mgmt. Reason for continued inpatient stay Substantial Risk for: inability to function and rapid decompensation Time Spent With Patient Time: Total time managing care of this patient today ____ minutes.
[2022-12-31 20:20] VITALS: BP 123/75; PULSE 76; RESP 18; TEMP 36.6; O2SAT 98
[2022-12-31] MEDS: traZODone HCL 25 MG HALFTAB PO (22:30)
[2022-12-31] MEDS: traZODone HCL 100 MG TABLET PO (22:31)
[2022-12-31] MEDS: Melatonin 3 MG TABLET 6 MG PO (22:31)
[2023-01-01 08:17] VITALS: BP 102/55; PULSE 73; RESP 16; TEMP 36.2; O2SAT 96
[2023-01-01] MEDS: buPROPion HCl XL 300 MG TAB.ER.24H PO (09:12)
[2023-01-01] MEDS: Gabapentin 300 MG CAPSULE 600 MG PO ×3 (09:13→22:21)
[2023-01-01] MEDS: Sertraline HCL 100 MG TABLET 200 MG PO (09:13)
[2023-01-01] MEDS: Naltrexone HCl 50 MG TABLET PO (09:13)
--- NOTE | 2023-01-01 12:58 | P.PNPSI_ITS ---
Subjective Subjective Date of Service: 01/01/23 Reason For Visit: Mood Disorder Interim History: calm, cooperative. c/o poor sleep disturbed by sweats and racing pulse. discuss prazosin and clonidine use at HS, pt has h/o use of clonidine, agrees to restart it at HS PRN. otherwise counseled to attend groups as he is doing and keep his mind occupied. per staff, dep/anx. watching TV, worrying about bills. trying to stay busy. dep 3, anx 7. Mental Status Exam Mental Status Exam Narrative: adequately dressed and groomed. no PMA/PMR. cooperative with interview. speech nml rate, amount, loudness, tone, latency. thoughts linear and logical. affect constricted, normo-intense, non-labile. mood anxious. no SI/SIBI/HI/AVH expressed. Diagnostics Vital Signs (24Hr): Vital Signs - 24 hr 12/31/22 20:20 01/01/23 08:17 Temperature 97.8 F 97.1 F Pulse Rate 76 73 Respiratory Rate 18 16 Blood Pressure 123/75 102/55 L Pulse Oximetry 98 96 Oxygen Delivery Method Room Air Room Air BMI result Body Mass Index 28.5 Labs 12/20/22 03:33 12/21/22 09:16 Medications Medications Current Medications Acetaminophen (Acetaminophen 325 Mg Tablet) 650 mg PO Q6H PRN PRN Reason: Headache/Pain Mild Scale (1-3) Al Hydroxide/Mg Hydroxide (Magnesium Hydrox/Alum Hydrox 30 Ml Oral.Susp) 30 ml PO Q6H PRN PRN Reason: Heartburn/Nausea Last Admin: 12/24/22 08:43 Dose: 30 ml Bupropion HCl (Bupropion Hcl Xl 300 Mg Tab.Er.24h) 300 mg PO DAILY [facility] Last Admin: 01/01/23 09:12 Dose: 300 mg Clonidine HCl (Clonidine Hcl 0.1 Mg Tablet) 0.1 mg PO BEDTIME PRN; Protocol PRN Reason: insomnia Gabapentin (Gabapentin 300 Mg Capsule) 600 mg PO TID [facility] Last Admin: 01/01/23 09:13 Dose: 600 mg Hydroxyzine HCl (Hydroxyzine Hcl 25 Mg Tablet) 25 mg PO Q6H PRN PRN Reason: Anxiety Last Admin: 12/26/22 21:46 Dose: 25 mg Magnesium Hydroxide (Milk Of Magnesia 30 Ml Oral.Susp) 30 ml PO DAILY PRN PRN Reason: Constipation Melatonin (Melatonin 3 Mg Tablet) 6 mg PO BEDTIME [facility] Last Admin: 12/31/22 22:31 Dose: 6 mg Naltrexone HCl (Naltrexone Hcl 50 Mg Tablet) 50 mg PO DAILY [facility] Last Admin: 01/01/23 09:13 Dose: 50 mg Nicotine Polacrilex (Nicotine Polacrilex 2 Mg Gum) 2 mg BUCCAL Q1H PRN PRN Reason: Nicotine Cravings Ondansetron HCl (Ondansetron Odt 4 Mg Tab.Rapdis) 4 mg TRANSLINGU Q6H PRN PRN Reason: Nausea Last Admin: 12/21/22 21:47 Dose: 4 mg Sertraline HCl (Sertraline Hcl 100 Mg Tablet) 200 mg PO DAILY [facility] Last Admin: 01/01/23 09:13 Dose: 200 mg Trazodone HCl (Trazodone Hcl 100 Mg Tablet) 100 mg PO BEDTIME [facility] Last Admin: 12/31/22 22:31 Dose: 100 mg Trazodone HCl (Trazodone Hcl 25 Mg Halftab) 25 mg PO BEDTIME [facility] Last Admin: 12/31/22 22:30 Dose: 25 mg Allergies Allergies Allergy/AdvReac Type Severity Reaction Status Date / Time fluoxetine [From PROZAC] Allergy Unknown UNKNOWN Verified 11/10/22 06:03 Penicillins [PENICILLINS] Allergy Unknown UNKNOWN Verified 11/10/22 06:03 Assessment & Plan Assessment & Plan (1) Alcohol use disorder, severe, dependence: Status: Acute Code(s): F10.20 - Alcohol dependence, uncomplicated (2) Depressive disorder: Status: Acute Code(s): F32.A - Depression, unspecified Plan 12/21: detox using ativan per [facility] protocol. DC buspar as ineffective. increase gabapentin from 400 TID to 800 TID for Sz prophylaxis and anxiety. continue home regimen otherwise. T/C wellbutrin augmentation strategy. utox barbiturates POS from recent detox. 12/22: taper scheduled through next sunday. continue ativan per [facility] as well due to h/o withdrawal Sz. would like to give wellbutrin a try; Sz risk discussed again and both MD and pt are comfortable with starting the medication. gabapentin prophylaxis, ample ativan taper, ativan PRN. start naltrexone as well per pt request. 12/23/22 cont plan of care no sz 12/24/2022 Continue plan of care lorazepam taper gabapentin 800 t.i.d. Wellbutrin was started 12/25: continue current mgmt. no gabapentin taper planned. increase wellbutrin to 300 mg daily when clinically indicated. 12/26: increase wellbutrin to 300 as of tomorrow. ativan taper extended through tomorrow morning. high anxiety, apparent agoraphobia. 12/27: anxious, insomniac. agreeable to increase trazodone to 150 tonight and asks to add melatonin 6. [facility] intake sunday, may have a bed next week. 12/28: gradual improvement. anxious. [facility] interview tomorrow. decrease trazodone from 150 mg QHS to 125 mg QHS due to feeling logy this morning. 12/29: slept well last night on 125 traz, not too groggy this morning. accepted by [facility] for 01/05 admission. continue current mgmt. 12/30: sleep continues to go well. some dizziness in afternoon. agrees to decrease gabapentin to 600 TID from 800 TID to see if it improves dizziness. otherwise continue current mgmt. 12/31: slept well. no dizziness. continue current mgmt. 01/01: no c/o dizziness. disrupted sleep with signs of autonomic arousal. start clonidine 0.1 mg QHS PRN insomnia, which pt has taken in the past successfully. Reason for continued inpatient stay Substantial Risk for: rapid decompensation Time Spent With Patient Time: Total time managing care of this patient today ____ minutes.
[2023-01-01 19:46] VITALS: BP 125/84; PULSE 74; RESP 16; TEMP 36.9; O2SAT 98
[2023-01-01 22:19] VITALS: BP 129/87; PULSE 67; RESP 16
[2023-01-01] MEDS: Melatonin 3 MG TABLET 6 MG PO (22:21)
[2023-01-01] MEDS: traZODone HCL 100 MG TABLET PO (22:21)
[2023-01-01] MEDS: cloNIDine HCL 0.1 MG TABLET PO (22:21)
[2023-01-01] MEDS: traZODone HCL 25 MG HALFTAB PO (22:22)
[2023-01-02 08:41] VITALS: BP 105/56; PULSE 78; RESP 16; TEMP 36.5; O2SAT 96
[2023-01-02] MEDS: Gabapentin 300 MG CAPSULE 600 MG PO ×3 (08:43→22:33)
[2023-01-02] MEDS: Naltrexone HCl 50 MG TABLET PO (08:43)
[2023-01-02] MEDS: Sertraline HCL 100 MG TABLET 200 MG PO (08:43)
[2023-01-02] MEDS: buPROPion HCl XL 300 MG TAB.ER.24H PO (08:43)
--- NOTE | 2023-01-02 09:20 | HO.PSYCHPN ---
Subjective Subjective Date of Service: 01/02/23 Reason For Visit: Mood Disorder Subjective Notes: Conditional Voluntary Interim History: Pt reports some improved in sleep. He reports it usually takes some time for his sleep to regulate after acute detox. He denies SI/HI. No signs of psychosis. Pt reports having some anxiety but nothing I can't handle. He is looking forward to return to [facility] bed at [facility]. He denies any physical concerns. Review of Systems Review of Systems Constitutional : No Fever, No Chills ENT/Mouth : No Ear Pain, No Nasal Congestion, No sore throat Eyes: No Eye Pain, No Swelling, No Redness Cardiovascular : No Chest Pain, No SOB Respiratory : No Cough, No Sputum, No Dyspnea Gastrointestinal : No Nausea, No Vomiting, No Diarrhea, No Hematochezia, No Melena Genitourinary : No Dysuria, No Urinary Frequency, No Hematuria Musculoskeletal : No Myalgias Skin : No Skin Lesions, No rash Neuro : No Weakness, No Numbness, No Paresthesias, No Dizziness, No Headache Psych : positive Anxiety, positive Depression, positive SI no HI Heme/Lymph: No Lymphadenopathy Endocrine : No Polyuria, No Polydipsia All other systems reviewed and are negative Mental Status Exam Mental Status Exam Narrative: adequately dressed and groomed. no PMA/PMR. cooperative with interview. speech nml rate, amount, loudness, tone, latency. thoughts linear and logical. affect constricted, normo-intense, non-labile. mood anxious. no SI/SIBI/HI/AVH expressed. Diagnostics Vital Signs (24Hr): Vital Signs - 24 hr 01/01/23 19:46 01/01/23 22:19 01/02/23 08:41 Temperature 98.5 F 97.7 F Pulse Rate 74 67 78 Respiratory Rate 16 16 16 Blood Pressure 125/84 129/87 105/56 L Pulse Oximetry 98 96 Oxygen Delivery Method Room Air Room Air BMI result Body Mass Index 28.5 Labs 12/20/22 03:33 12/21/22 09:16 Medications Medications Current Medications Acetaminophen (Acetaminophen 325 Mg Tablet) 650 mg PO Q6H PRN PRN Reason: Headache/Pain Mild Scale (1-3) Al Hydroxide/Mg Hydroxide (Magnesium Hydrox/Alum Hydrox 30 Ml Oral.Susp) 30 ml PO Q6H PRN PRN Reason: Heartburn/Nausea Last Admin: 12/24/22 08:43 Dose: 30 ml Bupropion HCl (Bupropion Hcl Xl 300 Mg Tab.Er.24h) 300 mg PO DAILY [facility] Last Admin: 01/02/23 08:43 Dose: 300 mg Clonidine HCl (Clonidine Hcl 0.1 Mg Tablet) 0.1 mg PO BEDTIME PRN; Protocol PRN Reason: insomnia Last Admin: 01/01/23 22:21 Dose: 0.1 mg Gabapentin (Gabapentin 300 Mg Capsule) 600 mg PO TID [facility] Last Admin: 01/02/23 08:43 Dose: 600 mg Hydroxyzine HCl (Hydroxyzine Hcl 25 Mg Tablet) 25 mg PO Q6H PRN PRN Reason: Anxiety Last Admin: 12/26/22 21:46 Dose: 25 mg Magnesium Hydroxide (Milk Of Magnesia 30 Ml Oral.Susp) 30 ml PO DAILY PRN PRN Reason: Constipation Melatonin (Melatonin 3 Mg Tablet) 6 mg PO BEDTIME [facility] Last Admin: 01/01/23 22:21 Dose: 6 mg Naltrexone HCl (Naltrexone Hcl 50 Mg Tablet) 50 mg PO DAILY [facility] Last Admin: 01/02/23 08:43 Dose: 50 mg Nicotine Polacrilex (Nicotine Polacrilex 2 Mg Gum) 2 mg BUCCAL Q1H PRN PRN Reason: Nicotine Cravings Ondansetron HCl (Ondansetron Odt 4 Mg Tab.Rapdis) 4 mg TRANSLINGU Q6H PRN PRN Reason: Nausea Last Admin: 12/21/22 21:47 Dose: 4 mg Sertraline HCl (Sertraline Hcl 100 Mg Tablet) 200 mg PO DAILY [facility] Last Admin: 01/02/23 08:43 Dose: 200 mg Trazodone HCl (Trazodone Hcl 100 Mg Tablet) 100 mg PO BEDTIME [facility] Last Admin: 01/01/23 22:21 Dose: 100 mg Trazodone HCl (Trazodone Hcl 25 Mg Halftab) 25 mg PO BEDTIME [facility] Last Admin: 01/01/23 22:22 Dose: 25 mg Allergies Allergies Allergy/AdvReac Type Severity Reaction Status Date / Time fluoxetine [From PROZAC] Allergy Unknown UNKNOWN Verified 11/10/22 06:03 Penicillins [PENICILLINS] Allergy Unknown UNKNOWN Verified 11/10/22 06:03 Assessment & Plan Assessment & Plan (1) Depressive disorder: Status: Acute Code(s): F32.A - Depression, unspecified (2) Alcohol use disorder, severe, dependence: Status: Acute Code(s): F10.20 - Alcohol dependence, uncomplicated Plan 12/21: detox using ativan per [facility] protocol. DC buspar as ineffective. increase gabapentin from 400 TID to 800 TID for Sz prophylaxis and anxiety. continue home regimen otherwise. T/C wellbutrin augmentation strategy. utox barbiturates POS from recent detox. 12/22: taper scheduled through next sunday. continue ativan per [facility] as well due to h/o withdrawal Sz. would like to give wellbutrin a try; Sz risk discussed again and both MD and pt are comfortable with starting the medication. gabapentin prophylaxis, ample ativan taper, ativan PRN. start naltrexone as well per pt request. 12/23/22 cont plan of care no sz 12/24/2022 Continue plan of care lorazepam taper gabapentin 800 t.i.d. Wellbutrin was started 12/25: continue current mgmt. no gabapentin taper planned. increase wellbutrin to 300 mg daily when clinically indicated. 12/26: increase wellbutrin to 300 as of tomorrow. ativan taper extended through tomorrow morning. high anxiety, apparent agoraphobia. 12/27: anxious, insomniac. agreeable to increase trazodone to 150 tonight and asks to add melatonin 6. [facility] intake sunday, may have a bed next week. 12/28: gradual improvement. anxious. [facility] interview tomorrow. decrease trazodone from 150 mg QHS to 125 mg QHS due to feeling logy this morning. 12/29: slept well last night on 125 traz, not too groggy this morning. accepted by [facility] for 01/05 admission. continue current mgmt. 12/30: sleep continues to go well. some dizziness in afternoon. agrees to decrease gabapentin to 600 TID from 800 TID to see if it improves dizziness. otherwise continue current mgmt. 12/31: slept well. no dizziness. continue current mgmt. 01/01: no c/o dizziness. disrupted sleep with signs of autonomic arousal. start clonidine 0.1 mg QHS PRN insomnia, which pt has taken in the past successfully. 01/02 continue tx. Reason for continued inpatient stay Substantial Risk for: stable for discharge Time Spent With Patient Time: Total time managing care of this patient today ____ minutes.
[2023-01-02 20:44] VITALS: BP 113/70; PULSE 82; RESP 16; TEMP 36.6; O2SAT 96
[2023-01-02 22:31] VITALS: BP 111/71; PULSE 71
[2023-01-02] MEDS: Melatonin 3 MG TABLET 6 MG PO (22:32)
[2023-01-02] MEDS: traZODone HCL 100 MG TABLET PO (22:33)
[2023-01-02] MEDS: traZODone HCL 25 MG HALFTAB PO (22:33)
[2023-01-02] MEDS: cloNIDine HCL 0.1 MG TABLET PO (22:34)
[2023-01-03 08:56] VITALS: BP 100/73; PULSE 78; RESP 18; TEMP 36.3; O2SAT 96
[2023-01-03] MEDS: Naltrexone HCl 50 MG TABLET PO (09:22)
[2023-01-03] MEDS: Sertraline HCL 100 MG TABLET 200 MG PO (09:22)
[2023-01-03] MEDS: buPROPion HCl XL 300 MG TAB.ER.24H PO (09:22)
[2023-01-03] MEDS: Gabapentin 300 MG CAPSULE 600 MG PO ×3 (09:22→22:47)
--- NOTE | 2023-01-03 13:36 | P.PNPSI_ITS ---
Subjective Subjective Date of Service: 01/03/23 Reason For Visit: Mood Disorder Interim History: calm, cooperative, stable presentation. per staff, c/o poor sleep but appears to sleep. meds and meals. + grps. visible, social. safe on unit. planning to D/C @ 10 on sunday. Mental Status Exam Mental Status Exam Narrative: adequately dressed and groomed. no PMA/PMR. cooperative with interview. speech nml rate, amount, loudness, tone, latency. thoughts linear and logical. affect constricted, normo-intense, non-labile. no SI/SIBI/HI/AVH expressed. Diagnostics Vital Signs (24Hr): Vital Signs - 24 hr 01/02/23 20:44 01/02/23 22:31 01/03/23 08:56 Temperature 97.9 F 97.3 F Pulse Rate 82 71 78 Respiratory Rate 16 18 Blood Pressure 113/70 111/71 100/73 Pulse Oximetry 96 96 Oxygen Delivery Method Room Air Room Air BMI result Body Mass Index 28.5 Labs 12/20/22 03:33 12/21/22 09:16 Medications Medications Current Medications Acetaminophen (Acetaminophen 325 Mg Tablet) 650 mg PO Q6H PRN PRN Reason: Headache/Pain Mild Scale (1-3) Al Hydroxide/Mg Hydroxide (Magnesium Hydrox/Alum Hydrox 30 Ml Oral.Susp) 30 ml PO Q6H PRN PRN Reason: Heartburn/Nausea Last Admin: 12/24/22 08:43 Dose: 30 ml Bupropion HCl (Bupropion Hcl Xl 300 Mg Tab.Er.24h) 300 mg PO DAILY [facility] Last Admin: 01/03/23 09:22 Dose: 300 mg Clonidine HCl (Clonidine Hcl 0.1 Mg Tablet) 0.1 mg PO BEDTIME PRN; Protocol PRN Reason: insomnia Last Admin: 01/02/23 22:34 Dose: 0.1 mg Gabapentin (Gabapentin 300 Mg Capsule) 600 mg PO TID [facility] Last Admin: 01/03/23 09:22 Dose: 600 mg Hydroxyzine HCl (Hydroxyzine Hcl 25 Mg Tablet) 25 mg PO Q6H PRN PRN Reason: Anxiety Last Admin: 12/26/22 21:46 Dose: 25 mg Magnesium Hydroxide (Milk Of Magnesia 30 Ml Oral.Susp) 30 ml PO DAILY PRN PRN Reason: Constipation Melatonin (Melatonin 3 Mg Tablet) 6 mg PO BEDTIME [facility] Last Admin: 01/02/23 22:32 Dose: 6 mg Naltrexone HCl (Naltrexone Hcl 50 Mg Tablet) 50 mg PO DAILY [facility] Last Admin: 01/03/23 09:22 Dose: 50 mg Nicotine Polacrilex (Nicotine Polacrilex 2 Mg Gum) 2 mg BUCCAL Q1H PRN PRN Reason: Nicotine Cravings Ondansetron HCl (Ondansetron Odt 4 Mg Tab.Rapdis) 4 mg TRANSLINGU Q6H PRN PRN Reason: Nausea Last Admin: 12/21/22 21:47 Dose: 4 mg Sertraline HCl (Sertraline Hcl 100 Mg Tablet) 200 mg PO DAILY [facility] Last Admin: 01/03/23 09:22 Dose: 200 mg Trazodone HCl (Trazodone Hcl 100 Mg Tablet) 100 mg PO BEDTIME [facility] Last Admin: 01/02/23 22:33 Dose: 100 mg Trazodone HCl (Trazodone Hcl 25 Mg Halftab) 25 mg PO BEDTIME [facility] Last Admin: 01/02/23 22:33 Dose: 25 mg Allergies Allergies Allergy/AdvReac Type Severity Reaction Status Date / Time fluoxetine [From PROZAC] Allergy Unknown UNKNOWN Verified 11/10/22 06:03 Penicillins [PENICILLINS] Allergy Unknown UNKNOWN Verified 11/10/22 06:03 Assessment & Plan Assessment & Plan (1) Depressive disorder: Status: Acute Code(s): F32.A - Depression, unspecified (2) Alcohol use disorder, severe, dependence: Status: Acute Code(s): F10.20 - Alcohol dependence, uncomplicated Plan 12/21: detox using ativan per [facility] protocol. DC buspar as ineffective. increase gabapentin from 400 TID to 800 TID for Sz prophylaxis and anxiety. continue home regimen otherwise. T/C wellbutrin augmentation strategy. utox barbiturates POS from recent detox. 12/22: taper scheduled through next sunday. continue ativan per [facility] as well due to h/o withdrawal Sz. would like to give wellbutrin a try; Sz risk discusse d again and both MD and pt are comfortable with starting the medication. gabapentin prophylaxis, ample ativan taper, ativan PRN. start naltrexone as well per pt request. 12/23/22 cont plan of care no sz 12/24/2022 Continue plan of care lorazepam taper gabapentin 800 t.i.d. Wellbutrin was started 12/25: continue current mgmt. no gabapentin taper planned. increase wellbutrin to 300 mg daily when clinically indicated. 12/26: increase wellbutrin to 300 as of tomorrow. ativan taper extended through tomorrow morning. high anxiety, apparent agoraphobia. 12/27: anxious, insomniac. agreeable to increase trazodone to 150 tonight and asks to add melatonin 6. [facility] intake sunday, may have a bed next week. 12/28: gradual improvement. anxious. [facility] interview tomorrow. decrease trazodone from 150 mg QHS to 125 mg QHS due to feeling logy this morning. 12/29: slept well last night on 125 traz, not too groggy this morning. accepted by [facility] for 01/05 admission. continue current mgmt. 12/30: sleep continues to go well. some dizziness in afternoon. agrees to decrease gabapentin to 600 TID from 800 TID to see if it improves dizziness. otherwise continue current mgmt. 12/31: slept well. no dizziness. continue current mgmt. 01/01: no c/o dizziness. disrupted sleep with signs of autonomic arousal. start clonidine 0.1 mg QHS PRN insomnia, which pt has taken in the past successfully. 01/02 continue tx. 01/03: one episode of feeling like he was going to pass out yesterday, first in days. continue current mgmt. planning to DC on sunday morning at 10, meds to g o to [facility] in [place]. Reason for continued inpatient stay Substantial Risk for: inability to function and rapid decompensation Time Spent With Patient Time: Total time managing care of this patient today __25__ minutes.
[2023-01-03 22:35] VITALS: BP 133/83; PULSE 66; RESP 16; TEMP 36.4; O2SAT 97
[2023-01-03] MEDS: traZODone HCL 25 MG HALFTAB PO (22:47)
[2023-01-03] MEDS: Melatonin 3 MG TABLET 6 MG PO (22:47)
[2023-01-03] MEDS: traZODone HCL 100 MG TABLET PO (22:47)
[2023-01-03] MEDS: cloNIDine HCL 0.1 MG TABLET PO (22:47)
[2023-01-04] MEDS: Gabapentin 300 MG CAPSULE 600 MG PO ×3 (09:13→22:23)
[2023-01-04] MEDS: buPROPion HCl XL 300 MG TAB.ER.24H PO (09:13)
[2023-01-04] MEDS: Naltrexone HCl 50 MG TABLET PO (09:13)
[2023-01-04] MEDS: Sertraline HCL 100 MG TABLET 200 MG PO (09:13)
[2023-01-04 09:15] VITALS: BP 98/62; PULSE 72; RESP 16; TEMP 36.4; O2SAT 96
--- NOTE | 2023-01-04 10:21 | P.DS_ITS ---
DS: Providers Provider Date of Service: 01/04/23 Date of admission: 12/20/22 22:53 Primary care physician: Beny Kothari MD DS: Diagnosis Discharge Diagnosis (1) Depressive disorder: Status: Acute (2) Alcohol use disorder, severe, dependence: Status: Acute DS: Medications Discharge Medications Home Medications: Previous Rx's Medication Instructions Recorded bupropion HCl 300 mg 24 hr tablet, 300 mg PO DAILY 30 days #30 tabs 01/04/23 extended release clonidine HCl 0.1 mg tablet 0.1 mg PO BEDTIME PRN Anxiety 30 01/04/23 days #30 tabs gabapentin 300 mg capsule 600 mg PO TID 30 days #180 caps 01/04/23 melatonin 3 mg tablet 6 mg PO BEDTIME 30 days #60 tabs 01/04/23 naltrexone 50 mg tablet 50 mg PO DAILY 30 days #30 tabs 01/04/23 sertraline 100 mg tablet 200 mg PO DAILY 30 days #60 tabs 01/04/23 trazodone 100 mg tablet 100 mg PO BEDTIME 30 days #30 tabs 01/04/23 trazodone 50 mg tablet 25 mg PO BEDTIME 30 days #15 tabs 01/04/23 Mental Status Exam Mental Status Exam Narrative: adequately dressed and groomed. no PMA/PMR. cooperative with interview. speech nml rate, amount, loudness, tone, latency. thoughts linear and logical. affect constricted, normo-intense, non-labile. mood: it's good. no SI/SIBI/HI/AVH. DS: Summary Hospital Course Hospital Course: per 12/21 admission note: per CARE team micki, pt was BIBA from his mother's house, where he was intoxicated and making SI statements.? he had also punched the wall enough to have bleeding hands.? he reported stressors of being evicted from his housing, recent relapse after miscarriage of fiancee, loss of employment, strained relationship with mother.? endorses insomnia, anergia, anorexia, amotivation, low mood, anxiety. on interview with on the unit, pt appears sweaty and endorses MANCERA, sweats, tremors, anxiety, nausea.? he is concerned due to his h/o withdrawal Sz.? discusses [facility] protocol and encourages pt to seek out RN for assessment PRN.? agrees to increase gabapentin from 400 TID to 800 TID for Sz prophylaxis but also for anxiety.? agrees to DC buspar as ineffective.? pt would like to stay on zoloft 200, as he feels it has been enormously helpful for his social anxiety.? discuss R/B of wellbutrin anti-depressant augmentation as he feels his low mood has been intractable.? pt will consider.? would like to return to [facility] upon discharge, where he was for quite a while until recent months.? case D/W [facility]. Past Psychiatric History: hosps:? 3 prior SA:? denies SIB:? punching torres, both while intoxicated and while sober.? CARE team report also mentions h/o cutting. outpt:? psych MD madie Schroeder at [facility] Medical Evaluation Reviewed: Yes PMFSH Family History: mother - alcohol.? he also reports she has told him she has bipolar disorder, but he is unable to describe any events or observed behaviors supporting such a Dx Social History: grew up in [place].? HS grad. Substance History: tobacco - 1/2 ppd alcohol - large amounts of liquor, daily.? relapsed 6 days ago after a detox.? h/o 2 yrs sobriety.? h/o detoxes and rehabs. cannabis - once in a while denies the use of cocaine, opioids, stimulants, or other substances of abuse. Trauma History: reports having seen his grandfather pass away from cancer when pt was 16 yo. Precis: 12/21:? detox using ativan per [facility] protocol.? DC buspar as ineffective.? increase gabapentin from 400 TID to 800 TID for Sz prophylaxis and anxiety.? continue home regimen otherwise.? T/C wellbutrin augmentation strategy.? utox barbiturates POS from recent detox. 12/22:? taper scheduled through next sunday.? continue ativan per [facility] as well due to h/o withdrawal Sz.? would like to give wellbutrin a try; Sz risk discussed again and both MD and pt are comfortable with starting the medication.? gabapentin prophylaxis, ample ativan taper, ativan PRN.? start naltrexone as well per pt request. 12/23/22 cont plan of care no sz 12/24/2022 Continue plan of care lorazepam taper gabapentin 800 t.i.d. Wellbutrin was started 12/25:? continue current mgmt.? no gabapentin taper planned.? increase wellbutrin to 300 mg daily when clinically indicated. 12/26:? increase wellbutrin to 300 as of tomorrow.? ativan taper extended through tomorrow morning.? high anxiety, apparent agoraphobia. 12/27:? anxious, insomniac.? agreeable to increase trazodone to 150 tonight and asks to add melatonin 6.? [facility] intake sunday, may have a bed next week. 12/28:? gradual improvement.? anxious.? [facility] interview tomorrow.? decrease trazodone from 150 mg QHS to 125 mg QHS due to feeling logy this morning. 12/29:? slept well last night on 125 traz, not too groggy this morning.? accepted by [facility] for 01/05 admission.? continue current mgmt. 12/30:? sleep continues to go well.? some dizziness in afternoon.? agrees to decrease gabapentin to 600 TID from 800 TID to see if it improves dizziness.? otherwise continue current mgmt. 12/31:? slept well.? no dizziness.? continue current mgmt. 01/01:? no c/o dizziness.? disrupted sleep with signs of autonomic arousal.? start clonidine 0.1 mg QHS PRN insomnia, which pt has taken in the past successfully. 01/02 continue tx. 01/03:? one episode of feeling like he was going to pass out yesterday, first in days.? continue current mgmt.? planning to DC on sunday morning at 10, meds to go to [facility] in [place]. 01/04: ready for discharge, safe, stable. meds reviewed, reconciled, prescribed. 01/05: discharged as per plan. Time Spent with Patient Time attestation: Total time managing care of this patient today ____ minutes. Time spent: Greater than 30 minutes Discharge Plan Discharge Anticipated Discharge Date/Time: 01/05/23 09:30 Patient Disposition: Xfer Other Discharge Diagnosis: Depressive Disorder Alcohol Use Disorder Referrals: BE ANGELA [Other] - 1 Week (ADMISSION 01/05/2023) Beny Kothari MD [Primary Care Provider] - 1 Week Discharge Medications: New naltrexone 50 mg Tablet 50 mg PO DAILY 30 Days Qty: 30 0RF melatonin 3 mg Tablet 6 mg PO BEDTIME 30 Days Qty: 60 0RF gabapentin 300 mg Capsule 600 mg PO TID 30 Days Qty: 180 0RF bupropion HCl 300 mg Tablet Extended Release 24 Hr 300 mg PO DAILY 30 Days Qty: 30 0RF trazodone 50 mg tablet 25 mg PO BEDTIME 30 Days Qty: 15 0RF Rx Instructions: give with 100 mg tab for a total of 125 mg at bedtime Continued clonidine HCl 0.1 mg tablet 0.1 mg PO BEDTIME PRN (Reason: Anxiety) 30 Days Qty: 30 0RF sertraline 100 mg tablet 200 mg PO DAILY 30 Days Qty: 60 0RF trazodone 100 mg tablet 100 mg PO BEDTIME 30 Days Qty: 30 0RF Discontinued buspirone 5 mg tablet 5 mg PO BID gabapentin 400 mg capsule 400 mg PO TID Discharge Orders: Discharge Order (Routine); Ordered 01/05/23 Ordered By: Song Saldivar Diet: Advance to usual diet Activity on Discharge: As tolerated Stand Alone Forms: Patient Portal Discharge page, Community Support Care Plan Goals: remain safe, stable, and sober in the outpatient treatment setting Health Concerns: none Plan of Treatment: take medications as prescribed, attend appointments as scheduled Assessment: not at imminent risk of harm to self or others Discharge Date/Time: 01/05/23 08:10
[2023-01-04 10:33] VITALS: BMI 28.8
[2023-01-04 22:15] VITALS: BP 126/87; PULSE 69; RESP 16; O2SAT 96
[2023-01-04] MEDS: Melatonin 3 MG TABLET 6 MG PO (22:22)
[2023-01-04] MEDS: traZODone HCL 100 MG TABLET PO (22:22)
[2023-01-04] MEDS: traZODone HCL 25 MG HALFTAB PO (22:22)
[2023-01-04] MEDS: cloNIDine HCL 0.1 MG TABLET PO (22:23)
[2023-01-05 08:06] VITALS: BP 118/74; PULSE 97; RESP 17; TEMP 36.3; O2SAT 97
== END 2023-01-05 08:10 | disposition other institution (70) | DRG 754 ==
LOC: HO.ED 03:37 → HO.PADLT16 22:58
PROVIDERS: Admitting Provider Psychiatry & Neurology Psychiatry; Emergency Provider Emergency Medicine; PCP Internal Medicine; Visit Provider Psychiatry & Neurology Psychiatry
DX: F32.A Depression, unspecified (principal); R45.851 Suicidal ideations; F10.239 Alcohol dependence with withdrawal, unspecified; F17.210 Nicotine dependence, cigarettes, uncomplicated; F40.00 Agoraphobia, unspecified; Z20.822 Contact with and (suspected) exposure to COVID-19; Y90.3 Blood alcohol level of 60-79 mg/100 ml; Z71.6 Tobacco abuse counseling; Z79.899 Other long term (current) drug therapy
CPT/HCPCS: 36415; 80053; 80061; 80143; 80179; 80307; 81001; 83735; 85025; 87635; 93005; 99285; S9485

== ENCOUNTER → 2022-12-20 22:44 | Outpatient (BNV) | payer MEDICAID, SELFPAY | PROVIDERS: Admitting Provider Psychiatry & Neurology Psychiatry; Emergency Provider Emergency Medicine; PCP Internal Medicine; Visit Provider Internal Medicine Cardiovascular Disease | DX: I45.81 Long QT syndrome (principal) | CPT/HCPCS: 93010 ==

== ENCOUNTER → 2022-12-20 22:53 | Outpatient (BNV) | payer OTHER, SELFPAY | PROVIDERS: Admitting Provider Psychiatry & Neurology Psychiatry; Emergency Provider Emergency Medicine; PCP Internal Medicine; Visit Provider Psychiatry & Neurology Psychiatry | DX: F33.2 Major depressive disorder, recurrent severe without psychotic features (principal); F10.20 Alcohol dependence, uncomplicated | CPT/HCPCS: 99231; 99232 ==

== ENCOUNTER → 2022-12-20 22:53 | Outpatient (BNV) | payer OTHER, SELFPAY | PROVIDERS: Admitting Provider Psychiatry & Neurology Psychiatry; Emergency Provider Emergency Medicine; PCP Internal Medicine; Visit Provider Psychiatry & Neurology Psychiatry | DX: F33.2 Major depressive disorder, recurrent severe without psychotic features (principal); F10.20 Alcohol dependence, uncomplicated | CPT/HCPCS: 99231; 99232; 99233 ==

== ENCOUNTER 2025-02-16 10:32 | Outpatient (REF) | payer MEDICAID, SELFPAY ==
--- OUTSIDE RECORDS SUMMARY | 2025-02-16 12:31 | XMS_ITS | Clinical Summary ---
Author Organization [facility] [employer] [facility] ity Address [address] [place] [address] Care Team Providers Care Shop Coordinator Name Role Phone Unavailable Primary Care Provider Unavailabl e Social History Tobacco Use Types Packs/Day Years Used Date Smoking Tobacco: Never Assessed Sex and Gender Information Value Date Recorded Sex Assigned at Not on file Legal Sex Male 1:18 PM EST Gender Identity Not on file Sexual Orientation Not on file Plan of Treatment Health Maintenance Due Date Last Done Comments DTaP,Tdap,and Td Vaccines (1 - Tdap) 2005 Hepatitis B Vaccines (1 of 3 - 19+ 3-dose series) 2005 HPV Vaccines (1 - 3-dose SCD M series) 2013 Depression Screening 05/14/2024 COVID-19 Vaccine (1 - 2023-2 5 season) 2025 Influenza Vaccine (#1) 2025 RSV Immunization Adult Patie nts (1 - 1-dose 75+ series) 2061 HIB Vaccines Aged Out No longer eligi ble based on patient's age to complete this topic Hepatitis A Vaccines Aged Out No long er eligible based on patient's age to complete this topic IPV Vaccines Aged Out No longer eligi ble based on patient's age to complete this topic MMR Vaccines Aged Out No longer eligi ble based on patient's age to complete this topic Meningococcal ACWY Vaccine Aged Out N o longer eligible based on patient's age to complete this topic Meningococcal B Vaccine Aged Out No l onger eligible based on patient's age to complete this topic Pneumococcal Vaccine: Pediat rics (0 to 5 Years) and At-Risk Patients (6 to 49 Years) Aged Out No longer eligible b ased on patient's age to complete this topic RSV Immunization Patients Un cassie 20 months Aged Out No longer eligible b ased on patient's age to complete this topic Varicella Vaccines Aged Out No longer eligible based on patient's age to complete this topic
[2025-02-16 13:40] LABS: MANUAL DIFF FLAG NO
[2025-02-16 13:44] LABS: Hematocrit 46.3 % (42.0-52.0); Hemoglobin 16.1 g/dl (14.0-18.0); Imm Gran Abs Auto 0.01 X10*3/uL (0.00-0.03); Imm Gran Pct Auto 0.2 % (0.0-0.4); Lymphocytes Absolute Auto 2.5 X10*3/uL (1.2-4.9); Mean Corpuscular HGB Conc 34.8 g/dl (31.0-36.0); Mean Corpuscular Hemoglobin 31.3 pg (27.0-33.0); Mean Corpuscular Volume 89.9 fL (80.0-98.0); NRBC Abs Auto 0.000 X10*3/uL (0.0-0.012); NRBC Pct Auto 0.0 /100WBC (0.0-0.2); Platelet Count 230 X10*3/uL (160-400); Red Blood Count 5.15 X10*6/uL (4.60-5.80); White Blood Count 6.2 X10*3/uL (4.8-10.8)
[2025-02-16 14:11] LABS: Hemoglobin A1C 140.5829 umol/L; Total Hemoglobin (HGBA1C) 4050.4877 umol/L
[2025-02-16 14:23] LABS: Alanine Aminotransferase 21 U/L (0-40); Albumin Level 5.0 g/dL (3.5-5.0); Alkaline Phosphatase 79 U/L (39-117); Anion Gap 15 (12-20); Aspartate Amino Transferase 31 U/L (5-37); Blood Urea Nitrogen 15 mg/dL (9-16); Calcium 9.0 mg/dL (8.4-10.2); Carbon Dioxide 24 mmol/L (22-29); Chloride 107 mmol/L (96-108); Estimated Glomerular Filt Rate > 60; Ferritin 190 ng/mL (20-250); Iron 56 mcg/dL (45-160); Percent Iron Saturation 18 % (15-50); Potassium 3.8 mmol/L (3.3-5.1); Sodium 142 mmol/L (135-145); Total Iron Binding Capacity 307 mcg/dL (228-428); Total Protein 7.2 g/dL (6.5-8.0); Unsaturated Iron Binding 251 ug/dL
[2025-02-16 14:32] LABS: Folate 7.2 ng/mL (> or = 4.0); Vitamin B12 393 pg/mL (200-900)
== END 2025-02-16 10:33 | disposition home or self-care (01) ==
LOC: HO.MANLDS 10:32
PROVIDERS: Visit Provider Physician Assistant
DX: L65.9 Nonscarring hair loss, unspecified (principal); E55.9 Vitamin D deficiency, unspecified; R73.01 Impaired fasting glucose
CPT/HCPCS: 36415; 80053; 82306; 82607; 82728; 82746; 83036; 83540; 84443; 85025